=== PATIENT | male | born 1995 | race Caucasian/White ===

== ENCOUNTER → 2021-02-17 13:39 | Outpatient (CLI) | payer MEDICAID, SELFPAY ==
[2017-09-17 16:44] VITALS: BMI 43.5
[2021-02-17 14:45] LABS: Hematocrit 37.9 % (40-54); Hemoglobin 11.8 g/dL (13.0-16.5); Mean Corp Hgb Conc 31.1 g/dL (32-36); Mean Corpuscular Hgb 27.2 pg (27.0-32.0); Mean Corpuscular Volume 87.3 fL (80-94); Mean Platelet Vol. 9.6 fl (6.2-12.0); Platelet Count 383 K/mm3 (150-450); RBC Distribution Width CV 14.6 % (11.6-14.6); RBC Distribution Width SD 46.5 fl (35.1-43.9); Red Blood Count 4.34 M/mm3 (4.6-6.2); White Blood Count 11.3 K/mm3 (4.4-11.0)
[2021-02-17 15:13] LABS: ALB/GLOB Ratio 0.9 RATIO (0.9-2.4); AST(SGOT) 26 U/L (15-37); Alanine Aminotransfer ALT/SGPT 50 U/L (16-61); Albumin, Serum 3.4 g/dL (3.2-5.0); Alkaline Phosphatase 145 U/L (45-117); Anion Gap 8 (5-15); BUN 16 mg/dL (7-18); Calcium,Total 8.7 mg/dL (8.5-10.1); Chloride 104 mmol/L (98-107); Cholesterol 229 mg/dL (200); EST Glomerular Filtration Rate 95 mL/min (>60); Est Glom Filt Rate - Afr Amer 115 mL/min (>60); Globulin 3.9 g/dL (2.2-4.2); Glucose 112 mg/dL (74-106); High Density Lipoprotein 37 mg/dL; Potassium 3.9 mmol/L (3.5-5.1); Protein, Total 7.3 g/dL (6.4-8.2); Sodium Level 140 mmol/L (136-145); Triglycerides 317 mg/dL; Very Low Density Lipoprotein 63 mg/dL (5-40)
[2021-02-27 14:46] LABS: Everolimus 4.6 ng/mL (3.0-8.0); Trileptal-Oxcarbazepine 20 ug/mL (10-35)
== END ==
DX: Q85.1 Tuberous sclerosis (principal)
CPT/HCPCS: 36415; 80053; 80061; 80169; 82542; 85027

== ENCOUNTER 2022-02-17 08:41 | Emergency (ER) | payer MEDICAID, SELFPAY ==
[2022-02-17 08:43] VITALS: BP 155/92; PULSE 82; RESP 16; TEMP 36.8; O2SAT 100; BMI 42.8
--- NOTE | 2022-02-17 09:17 | EDS_ITS ---
HPI History of Present Illness Chief Complaint: Edema Informant: parent Narrative Narrative: 26-year-old male brought in by his parents with a chief complaint of lower extremity swelling. This process has been years in the making. Patient has tuberosclerosis with burning renal involvement and is followed by [facility]'s. Recently parents were informed that they need to be transferred to adult care. They are having difficulty with follow-up not having an appointment until April. They have follow-up with local PCP in a few weeks. He states that his legs have become progressively more swollen. They are looking for some way to relieve the swelling of his legs. He states that they went to urgent care but could not be seen. He did not know what to do anymore so he decided to come to emergency. They would like to see about getting a sedated MRI of his abdomen while he is here. He is not on any diuretic. They have not tried compressive wraps or socks. [facility] Medical History Angiomyolipoma of kidney Epilepsy HTN (hypertension) Neurocognitive disorder Seizure Tuberous sclerosis Home Medications Everolimus 10 mg PO DAILY 09/17/17 [History Last Taken Unknown] cholecalciferol (vitamin D3) 50 mcg (2,000 unit) capsule (Vitamin D3) 50 mcg PO DAILY 02/17/22 [History Last Taken Unknown] furosemide 40 mg tablet (Lasix) 40 mg PO DAILY #20 tabs 02/17/22 [Rx Last Taken Unknown] losartan 50 mg tablet 50 mg PO DAILY 02/17/22 [History Last Taken Unknown] oxcarbazepine 300 mg tablet 450 mg PO DAILY 02/17/22 [History Last Taken Unknown] oxcarbazepine 300 mg tablet 600 mg PO QHS 02/17/22 [History Last Taken Unknown] valproic acid (as sodium salt) 250 mg/5 mL oral solution 9 ml PO TID 02/17/22 [History Last Taken Unknown] ziprasidone HCl 20 mg capsule (Geodon) 20 mg PO BID 02/17/22 [History Last Taken Unknown] Allergy/AdvReac Type Severity Reaction Status Date / Time No Known Allergies Allergy Verified 02/17/22 08:42 Social History (Updated 02/17/22 @ 09:[address] Harlan Bernard DO) Smoking Status: Never smoker substance use type: does not use ROS ROS ED Constitutional Constitutional ED: Denies chills or weight loss Eyes Eyes: Denies change in vision or diplopia ENT ENT ED: Denies ear pain, rhinorrhea or sore throat Cardiovascular Cardiovascular: Denies chest pain, orthopnea, palpitations or racing heartbeat Respiratory/Chest Respiratory/Chest: Denies cough, dyspnea or orthopnea Gastrointestinal Gastrointestinal: Denies abdominal pain, diarrhea, nausea or vomiting Genitourinary Genitourinary ED: Denies dysuria, hematuria or urinary frequency Musculoskeletal Musculoskeletal: Reports other Details: Bilateral leg swelling ; Denies arthralgias or myalgias Integumentary Denies abscess or rash Neurologic Neurologic: Denies headache(s) or weakness Psychiatric Psychiatric: Denies anxiety, depression, suicidal ideation or suicidal thoughts Endocrine Endocrinology: Denies polydipsia, polyphagia or polyuria Allergic/Immunologic Allergic/Immunologic ED: Denies mouth swelling, tongue swelling or urticaria EXAM Physical Exam Const Vital Signs: 02/17/22 08:43 Temperature 98.3 F Temperature Source Temporal Pulse Rate 82 Respiratory Rate 16 Blood Pressure 155/92 H Blood Pressure Mean 113 Pulse Ox 100 Oxygen Delivery Method Room Air Positive well nourished and well developed General Appearance ED: well developed HEENT Reports normocephalic, head/scalp atraumatic and moist mucous membranes Eyes PERRL and EOMs intact bilaterally Neck no lymphadenopathy, supple and no JVD Resp normal respiratory effort and clear to auscultation bilaterally Cardio regular rate, regular rhythm and no murmurs GI normal to inspection, nondistended, normoactive bowel sounds and non-tender Palpation: soft Back/Spine no CVA tenderness and normal ROM Extremity normal to inspection Extremity Narrative: Bilateral lower extremity swelling. No palpable cords. Calf is nontender. Neuro Neuro Narrative: Patient is nonverbal Sensorium / Orientation: alert Motor Exam: strength 5/5 throughout Psych mental status grossly normal Mood & Affect: Negative for depressed or tearful Skin no rashes or lesions noted and no wounds MDM MDM MDM Narrative Medical decision making narrative: Patient has a normal creatinine. I will start him on Lasix. Family advised he would need to have follow-up BMP to check his potassium. I encouraged him to make an appointment with her doctor even if its in a couple weeks so that he can have follow-up with people that do know him. Family is comfortable with this plan. We talked about monitoring salt intake elevating the legs possibly compressive stockings/wraps. Lab Data Attestation: I reviewed the patient's lab results. Labs: Laboratory Results - last 24 hr 02/17/22 09:26 Sodium 141 Potassium 4.0 Chloride 105 Carbon Dioxide 27.0 Anion Gap 9 BUN 16 Creatinine 0.78 Estim Creat Clear Calc 141.00 Est GFR (MDRD) Af Amer 152 Est GFR (MDRD) Non-Af 126 BUN/Creatinine Ratio 20.5 H Glucose 118 H Calcium 8.7 Discharge Plan Triage Chief Complaint: Edema ED Provider: Harlan Bernard Dx/Rx/DC Orders Clinical Impression: Lymphedema Instructions: ED Lymphedema Prescriptions: New furosemide [Lasix] 40 mg tablet 40 mg PO DAILY Qty: 20 0RF No Action Everolimus 10 mg PO DAILY losartan 50 mg tablet 50 mg PO DAILY Label Comments: TAKE 1 TABLET BY MOUTH 2CTIMES A DAY2 oxcarbazepine 300 mg tablet 450 mg PO DAILY Label Comments: TAKE 1 AND 1/2 TABLETS BYCMOUTH IN THE MORNING AND 2 TABLETS IN THE EVENING oxcarbazepine 300 mg tablet 600 mg PO QHS Label Comments: TAKE 1 AND 1/2 TABLETS BYCMOUTH IN THE MORNING AND 2 TABLETS IN THE EVENING ziprasidone HCl [Geodon] 20 mg Capsule 20 mg PO BID Rx Instructions: give with food (meal/snack) valproic acid (as sodium salt) 250 mg/5 mL solution 9 ml PO TID Label Comments: TAKE 9ML BY MOUTH 3 TIMESCA DAY cholecalciferol (vitamin D3) [Vitamin D3] 50 mcg (2,000 unit) Capsule 50 mcg PO DAILY Primary Care Provider: Ge Pittman Referrals: Ge Pittman MD [Primary Care Provider] - As soon as possible (YOU WILL NEED TO HAVE YOUR POTASSIUM RECHECKED) Disposition Disposition: Home, Self Care
[2022-02-17 09:47] LABS: Anion Gap 9 (5-15); BUN 16 mg/dL (7-18); BUN/Creat Ratio 20.5 RATIO (10-20); Calcium,Total 8.7 mg/dL (8.5-10.1); Chloride 105 mmol/L (98-107); Creatinine, Serum 0.78 mg/dL (0.70-1.30); EST Glomerular Filtration Rate 126 mL/min (>60); Est Glom Filt Rate - Afr Amer 152 mL/min (>60); Glucose 118 mg/dL (74-106); Sodium Level 141 mmol/L (136-145)
[2022-02-17 10:13] VITALS: BP 139/81; RESP 16
== END 2022-02-17 10:14 | disposition home or self-care (01) ==
PROVIDERS: Emergency Provider Emergency Medicine; PCP Family Medicine; Visit Provider Emergency Medicine
DX: I89.0 Lymphedema, not elsewhere classified (principal); G40.909 Epilepsy, unspecified, not intractable, without status epilepticus; I10 Essential (primary) hypertension; Z79.899 Other long term (current) drug therapy
CPT/HCPCS: 80048; 99282; A4216

== ENCOUNTER → 2022-03-23 | Outpatient (CLI) | payer MEDICAID, SELFPAY ==
--- NOTE | 2022-03-23 13:46 | VDLE_ITS ---
Reason For Study: swelling RIGHT GSV is normal. CFV is compressible, spontaneous, phasic, competent and demonstrates normal augmentation. FV is compressible, spontaneous, phasic, competent and demonstrates normal augmentation. POP V is compressible, spontaneous, phasic, competent and demonstrates normal augmentation. T/P Trunk is compressible. PTV is compressible. RT PerV is compressible. Procedure This is a venous duplex using B-mode, color flow and spectral Doppler. Exam performed in department. The exam was abbreviated due to the COVID 19 protocol. The exam was diagnostic. A preliminary report was called and/or faxed to Dr. Sweet. VL/Venous Duplex US, Unilateral Interpretation Summary Deep veins of the right lower extremity are patent and compressible segmentally . There is no evidence of right lower extremity deep vein thrombosis. Valvular competence tere ears intact within the proximal deep venous system on the right . The right great saphenous vein a ppears patent and compressible segmentally. Ordering Physician: Abdirahman Sweet Referring Physician: Abdirahman Sweet Performed By: Alejandro Rosario RVT
[2022-03-23 15:29] LABS: Anion Gap 9 (5-15); BUN 21 mg/dL (7-18); BUN/Creat Ratio 23.8 RATIO (10-20); Calcium,Total 9.1 mg/dL (8.5-10.1); Chloride 105 mmol/L (98-107); Cholesterol 203 mg/dL (200); Creatinine, Serum 0.88 mg/dL (0.70-1.30); EST Glomerular Filtration Rate 109 mL/min (>60); Est Glom Filt Rate - Afr Amer 132 mL/min (>60); Glucose 143 mg/dL (74-106); High Density Lipoprotein 36 mg/dL; Potassium 3.7 mmol/L (3.5-5.1); Sodium Level 140 mmol/L (136-145); Triglycerides 235 mg/dL; Very Low Density Lipoprotein 47 mg/dL (5-40)
[2022-03-23 15:45] LABS: Hemoglobin A1c 5.5 % (3.8-5.6)
== END | disposition home or self-care (01) ==
PROVIDERS: PCP Family Medicine; Referring Provider Family Medicine; Visit Provider Family Medicine
DX: R22.41 Localized swelling, mass and lump, right lower limb (principal); Z79.899 Other long term (current) drug therapy
CPT/HCPCS: 36415; 80048; 80061; 83036; 93971

== ENCOUNTER → 2024-04-18 | Outpatient (CLI) | payer MEDICAID, SELFPAY ==
[2024-04-18 12:43] LABS: Erythrocyte Sedimentation Rate 17 mm/hr (0-20)
[2024-04-18 12:50] LABS: Absolute Lymphocyte Count 2.09 X10^3/uL (0.83-4.51); Absolute Neutrophil Count 6.1 X10^3/uL (2.0-7.7); Basophil# 0.03 X10^3/uL; Basophil% 0.3 % (0-1); Eosinophil# 0.03 X10^3/uL; Eosinophils% 0.3 % (0-5); Hematocrit 35.5 % (40-54); Lymphocyte # 2.09 X10^3/ul (0.83-4.51); Lymphocyte % 23.6 % (19-41); Mean Corpuscular Hgb 27.6 pg (27.0-32.0); Mean Platelet Vol. 11.1 fl (6.2-12.0); Monocyte% 6.8 % (0-10); NRBC Flagged by Analyzer 0 % (0-5); Neutrophil # 6.09 X10^3/uL (2.7-7.7); Neutrophil % 68.7 % (47-70); Platelet Count 244 K/mm3 (150-450); RBC Distribution Width CV 14.4 % (11.6-14.6); RBC Distribution Width SD 46.2 fl (35.1-43.9); Red Blood Count 3.99 M/mm3 (4.6-6.2); White Blood Count 8.9 K/mm3 (4.4-11.0)
[2024-04-18 13:21] LABS: ALB/GLOB Ratio 0.8 RATIO (0.9-2.4); AST(SGOT) 21 U/L (15-37); Alanine Aminotransfer ALT/SGPT 35 U/L (16-61); Albumin, Serum 3.2 g/dL (3.2-5.0); Alkaline Phosphatase 132 U/L (45-117); Anion Gap 7 (5-15); BUN 16 mg/dL (7-18); BUN/Creat Ratio 18.9 RATIO (10-20); Calcium,Total 9.4 mg/dL (8.5-10.1); Chloride 108 mmol/L (98-107); Creatinine, Serum 0.85 mg/dL (0.70-1.30); EST Glomerular Filtration Rate 112 mL/min (>60); Est Glom Filt Rate - Afr Amer 136 mL/min (>60); Glucose 103 mg/dL (74-106); Potassium 4.2 mmol/L (3.5-5.1); Protein, Total 7.2 g/dL (6.4-8.2); Sodium Level 139 mmol/L (136-145); T4 Free Direct 0.78 ng/dL (0.76-1.46)
[2024-04-18 14:08] LABS: Hemoglobin A1c 5.2 % (3.8-5.6)
== END | disposition home or self-care (01) ==
PROVIDERS: PCP Family Medicine; Referring Provider Family Medicine; Visit Provider Family Medicine
DX: I10 Essential (primary) hypertension (principal); R63.4 Abnormal weight loss
CPT/HCPCS: 36415; 80053; 83036; 84439; 84443; 85025; 85652

== ENCOUNTER → 2024-06-21 | Outpatient (CLI) | payer MEDICAID, SELFPAY ==
--- OUTSIDE RECORDS SUMMARY | 2024-06-21 13:40 | XMS RPT_ITS | CCD ---
Author Organization [facility] Care Team Providers Care Sales Support Representative Name Role Phone oTne ARRINGTON, Clifton Unavailable [phone] Irma Pittman MD Primary Care Provider GLADYS BUSH Referring UnavailRAVINDER Whiting Primary Care Unavailable TALMAGEESHA Referring Unavailable TALESHA US Attending Unavailable TALESHA US Admitting Unavailable RAVINDER LANGFORD Primary Care Unavailable Ravinder Langford Primary Care Provider Unavail able GLADYS BUSH Referring UnavailRAVINDER Whiting Primary Care Unavailable Tone ARRINGTON, Clifton Unavailable [phone] Irma Pittman MD Primary Care Provider [phone] IRMA PITTMAN Referring Unavailable IRMA PITTMAN Primary Care Unavailable TAMMI MCQUEEN Attending Unavailable IRMA PITTMAN Primary Care Unavailable TAMMI MCQUEEN Attending Unavailable IRMA PITTMAN Referring Unavailable IRMA PITTMAN Primary Care Unavailable TAMMI MCQUEEN Referring Unavailable TAMMI MCQUEEN Attending Unavailable Unavailable Primary Care Provider UnavailDARREL Aguilar Attending Unavailable PROVIDER, UNKNOWN Admitting Unavailable DARREL BLACKMON Referring Unavailable PROVIDER, UNKNOWN Admitting Unavailable HARITHA GREGG Attending Unavailable Medications Current Medications Medication Drug Class(es) Dates Sig (Normalized) Sig (Original) acetaminophen 500 mg oral tablet (4 sources) Start: 11-02-2019 take 2 tablets by mouth every six hours as needed for pain acetaminophen (TYLENOL) 500 MG tablet Take 2 Tablets by mouth every 6 hours as needed for Pain or Fever. 60 Tablet 3 11/02/2019 Active cholecalciferol 0.05 mg oral tablet (6 sources) Vitamin D Start: 07-07-2023 take 1 tablet by mouth once daily cholecalciferol (VITAMIN D3) 50 mcg (2000 units) tablet Take 1 Tablet (2,000 Units) by mouth daily 30 Tablet 11 07/07/2023 Active Start: 01-07-2022 take 1 tablet by chula th once daily cholecalciferol (VITAMIN D3) 50 mcg (2000 units) tablet Take 1 Tablet (2,000 Units) by mouth daily 30 Tablet 11 01/07/2022 Active Start: 06-11-2019 Vitamin D3 (CH OLECALCIFEROL) 50 MCG (2000 UT) TABS tablet Take 2,000 Units by mouth. 06/11/2019 Active everolimus 5 mg tablet for oral suspension (6 sources) Kinase Inhibitor, mTOR Inhibitor Immunosuppressant Start: 07-07-2023 take 2 tablets by mouth once daily Everolimus (AFINITOR DISPERZ) 5 MG TBSO Take 2 Tablets (10 mg) by mouth daily 60 Tablet 11 07/07/2023 Active Start: 01-07-2022 take 2 tablets by mo uth once daily Everolimus (AFINITOR DISPERZ) 5 MG TBSO Take 2 Tablets (10 mg) by mouth daily 60 Tablet 01/07/2022 Active Start: 06-07-2019 Everolimus 5 M G TBSO Take 10 mg by mouth. 06/07/2019 Active ibuprofen 600 mg oral tablet (4 sources) Nonsteroidal Anti-inflammatory Drug Start: 11-02-2019 take 1 tablet by mouth every six hours as needed for pain ibuprofen (MOTRIN) 600 MG tablet Take 1 Tablet by mouth every 6 hours as needed for Pain. 30 Tablet 3 11/02/2019 Active losartan potassium 50 mg oral tablet (6 sources) Angiotensin 2 Receptor Angela Start: 10-19-2019 take 1 tablet by mouth twice daily losartan (COZAAR) 50 MG tablet Take 1 Tablet by mouth 2 times daily. 10/19/2019 Active OXcarbazepine 300 mg oral tablet (6 sources) Anti-epileptic Agent Start: 07-07-2023 OXcarbazepine (TRILEPTAL) 300 MG tablet 1.5 tabs am and 2 tabs pm 110 Tablet 5 07/07/2023 Active Start: 01-07-2022 OXcarbazepine (TRILEPTAL) 300 MG tablet 1.5 tabs am and 2 tabs pm 110 Tablet 5 01/07/2022 Active Start: 06-07-2019 oxcarbazepine (TRILEPTAL) 300 MG/5ML oral suspension Take 7 ml po in the morning and 10 ml at night x 30 days 06/07/2019 Active risperiDONE 1 mg oral tablet (2 sources) Atypical Antipsychotic Start: 03-24-2024 take 2 tablets by mouth twice daily risperiDONE (RISPERDAL) 1 MG tablet Take 2 mg by mouth 2 times daily. 03/24/2024 Active valproic acid 50 mg/ml oral solution (6 sources) Mood Stabilizer, Anti-epileptic Agent Start: 06-21-2019 take 9 mL by mouth three times daily valproic acid (DEPAKENE) 250 MG/5ML SOLN oral solution Take 9 ml po tid 06/21/2019 Active ziprasidone 20 mg oral capsule (6 sources) Atypical Antipsychotic take 1 capsule by mouth twice daily ziprasidone (GEODON) 20 MG capsule Take 20 mg by mouth 2 times daily. Active Problems Active Problems Problem Classification Problem Date Documented Da te Episodic/Chronic Attention-deficit, conduct, and disruptive behavior disorders (1 source) Other symptoms and signs involving appearance and behavior; Translations: [Other symptoms and signs involving appearance and behavior] Onset: 04-28-2024 Episodic Epilepsy; convulsions (7 sources) Epilepsy; Translations: [Epilepsy, unspecified, not intractable, without status epilepticus] Onset: 03-25-2016 03-25-2016 Chronic Essential hypertension (9 sources) Hypertensive disorder; Translations: [Essential (primary) hypertension] Onset: 03-19-2009 06-08-2014 Chronic Nutritional deficiencies (6 sources) Vitamin D deficiency; Translations: [Vitamin D deficiency, unspecified] Onset: 12-31-2011 06-08-2014 Chronic Other and unspecified benign neoplasm (2 sources) Benign lipomatous neoplasm of kidney; 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] Onset: 08-27-2022 Episodic Other congenital anomalies (8 sources) Tuberous sclerosis syndrome; 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 Other diseases of veins and lymphatics (4 sources) Lymphedema; Translations: [Lymphedema, not elsewhere classified] Onset: 04-28-2024 04-28-2024 Chronic Other nutritional; endocrine; and metabolic disorders (2 sources) Body mass index 30+ - obesity; Translations: [Body mass index (BMI) 33.0-33.9, adult] 06-09-2024 Chronic Other nutritional; endocrine; and metabolic disorders (1 source) Body mass index (BMI) 33.0-33.9, adult; Translations: [Body mass index (BMI) 33.0-33.9, adult] Onset: 06-09-2024 Chronic Past or Other Problems Problem Classification Problem Date Documented Date Episodic/Chronic Attention-deficit, conduct, and disruptive behavior disorders (7 sources) Aggressive behavior; Translations: [Other symptoms and signs involving appearance and behavior] Onset: 03-25-2016 03-25-2016 Episodic Disorders of teeth and jaw (9 sources) Tooth eruption disorder; Translations: [Disturbances in tooth eruption] Onset: 09-12-2019 09-12-2019 Episodic Epilepsy; convulsions (6 sources) Seizure; Translations: [Unspecified convulsions] Onset: 04-01-1994 06-08-2014 Episodic Other and unspecified benign neoplasm (9 sources) Angiomyolipoma of kidney; 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] Onset: 06-23-2012 10-09-2021 Episodic Other and unspecified benign neoplasm (6 sources) Rhabdomyoma; 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 other soft tissue, unspecified] Onset: 06-23-2012 10-09-2021 Episodic Other injuries and conditions due to external causes (2 sources) Systemic inflammatory response syndrome; Translations: [Systemic inflammatory response syndrome (SIRS) of non-infectious origin without acute organ dysfunction] Onset: 06-09-2014 Resolved: 06-09-2014 10-09-2021 Episodic Residual codes; unclassified (7 sources) Neurocognitive disorder; Translations: [Unspecified symptoms and signs involving cognitive functions and awareness] Onset: 03-09-2018 03-09-2018 Episodic Residual codes; unclassified (1 source) Unspecified symptoms and signs involving cognitive functions and awareness; Translations: [Unspecified symptoms and signs involving cognitive functions and awareness] Onset: 09-06-2019 Episodic Shock (2 sources) Shock; Translations: [Shock, unspecified] Onset: 06-09-2014 Resolved: 06-09-2014 10-09-2021 Episodic Results Test Name Value Interpretation Reference Range Facility BASIC METABOLIC PANELon 05-30 Anion gap [Moles/Vol] 15 mmol/L Normal 10-20 [facility] Comment on above: Performed By: #### C H8 #### [facility] [address] [place], [place], Calcium [Mass/Vol] 8.9 mg/dL Normal 8.6-10.3 The [facility] Comment on above: Performed By: #### C H8 #### [facility] [address] [place], [place], Chloride [Moles/Vol] 106 mmol/L Normal 98-107 The [facility] Comment on above: Performed By: #### C H8 #### [facility] [address] [place], [place], CO2 [Moles/Vol] 26 mmol/L Normal 21-31 The [facility] Comment on above: Performed By: #### C H8 #### [facility] [address] [place], [place], Creatinine [Mass/Vol] 0.75 mg/dL Normal 0.70-1.30 The [facility] Comment on above: Performed By: #### C H8 #### [facility] [address] [place], [place], ESTIMATED GFR (CKD-EPI) 125 mL/min/1.73sqm Normal >=60 The [facility] Comment on above: Result Comment: 2020 CKD EPI Equation using Creatinine without Race Comment: Estimated glomerular filtration rate (eGFR) is calculated without a race coefficient. Values should be interpreted in the context of the patient's full clinical presentation. Reference: 1. Jimenez C, Javad M, Danyel WALKER, et al.. A Unifying Approach for GFR Estimation: Recommendations of the NKF-ASN Task Force on Reassessing the Inclusion of Race in Diagnosing Kidney Disease. [place] Journal of Kidney Diseases 2021;79(2):268-88.e1. 2. N Engl J Med 1 Vol. 385 Issue 19 Pages 5894-3435 Performed By: #### C H8 #### [facility] [address] [place], [place], Glucose [Mass/Vol] 90 mg/dL Normal 74-109 The [facility] Comment on above: Performed By: #### C H8 #### [facility] [address] [place] [address], Potassium [Moles/Vol] 4.5 mmol/L Normal 3.5-5.0 The [facility] Comment on above: Performed By: #### C H8 #### [facility] [address] [place], [place], Sodium [Moles/Vol] 142 mmol/L Normal 136-145 The [facility] Comment on above: Performed By: #### C H8 #### [facility] [address] [place], [place], Urea nitrogen [Mass/Vol] 18 mg/dL Normal 7-25 [facility] Comment on above: Performed By: #### C H8 #### [facility] [address] [place], [place], Basic metabolic 2000 panelon 06-09-2024 Anion gap [Moles/Vol] 15 mmol/L 10 - 20 [facility] Calcium [Mass/Vol] 8.9 mg/dL 8.6 - 10. 3 mg/dL [facility] Chloride [Moles/Vol] 106 mmol/L 98 - 107 mmol/L [facility] CO2 [Moles/Vol] 26 mmol/L 21 - 31 mmol/L [facility] Creatinine [Mass/Vol] 0.75 mg/dL 0.70 - 1.30 mg/dL [facility] GFR/1.73 sq M.predicted CKD-EPI (S/P/Bld) [Vol rate/Area] 125 - PINF [facility] Comment on above: 2020 CKD EPI Equatio n using Creatinine without Race Comment: Estimated glomerular filtration rate (eGFR) is calculated without a race coefficient. Values should be interpreted in the context of the patient's full clinical presentation. Reference: 1. Jimenez C, Javad M, Danyel DC, et al.. A Unifying Approach for GFR Estimation: Recommendations of the NKF-ASN Task Force on Reassessing the Inclusion of Race in Diagnosing Kidney Disease. [place] Journal of Kidney Diseases 2021;79(2):268-88.e1. 2. N Engl J Med 2020 Vol. 385 Issue 19 Pages 4487-0234 Glucose [Mass/Vol] 90 mg/dL 74 - 109 mg/dL [facility] Interpretation and review of laboratory results Normal [facility] Potassium [Moles/Vol] 4.5 mmol/L 3.5 - 5.0 mmol/L [facility] Sodium [Moles/Vol] 142 mmol/L 136 - 145 mmol/L [facility] Urea nitrogen [Mass/Vol] 18 mg/dL 7 - 25 mg/dL [facility] CBC panel Auto (Bld)on 06-09 Erythrocyte distribution width (RBC) [Ratio] 15.7 % High 11.5 - 14.5 % [facility] Hematocrit (Bld) [Volume fraction] 32.6 % Low 41.0 - 53.0 % [facility] Hemoglobin (Bld) [Mass/Vol] 10.7 g/dL Low 13.9 - 16.3 g/dL [facility] Interpretation and review of laboratory results Abnormal [facility] MCH (RBC) [Entitic mass] 27.9 pg 26.0 - 34.0 pg [facility] MCHC (RBC) [Mass/Vol] 32.9 g/dL 32.0 - 35.9 g/dL [facility] MCV (RBC) [Entitic vol] 85 fL 80 - 100 fL [facility] Platelet mean volume (Bld) [Entitic vol] 7.8 fL 7.5 - 11.2 fL [facility] Platelets (Bld) [#/Vol] 307 10*3/uL 150 - 400 K/uL [facility] RBC (Bld) [#/Vol] 3.84 10*6/uL Low [facility] WBC (Bld) [#/Vol] 9.2 10*3/uL 4.5 - 11.5 K/uL [facility] COMPLETE BLOOD COUNTon 06-09 Erythrocyte distribution width (RBC) [Ratio] 15.7 % High 11.5-14.5 The [facility] Comment on above: Performed By: #### C BC #### [facility] [address] [place] [address], Hematocrit (Bld) [Volume fraction] 32.6 % Low 41.0-53.0 The [facility] Comment on above: Performed By: #### C BC #### [facility] [address] [place], [place], Hemoglobin (Bld) [Mass/Vol] 10.7 g/dL Low 13.9-16.3 [facility] Comment on above: Performed By: #### C BC #### [facility] [address] [place], [place], MCH (RBC) [Entitic mass] 27.9 pg Normal 26.0-34.0 [facility] Comment on above: Performed By: #### C BC #### [facility] [address] [place], [place], MCHC (RBC) [Mass/Vol] 32.9 g/dL Normal 32.0-35.9 [facility] Comment on above: Performed By: #### C BC #### [facility] [address] [place], [place], MCV (RBC) [Entitic vol] 85 fL Normal 80-100 The [facility] Comment on above: Performed By: #### C BC #### [facility] [address] [place], [place], Platelet mean volume (Bld) [Entitic vol] 7.8 fL Normal 7.5-11.2 The [facility] Comment on above: Performed By: #### C BC #### [facility] [address] [place], [place], Platelets (Bld) [#/Vol] 307 10*3/uL Normal 150-400 The [facility] Comment on above: Performed By: #### C BC #### [facility] [address] [place], [place], RBC (Bld) [#/Vol] 3.84 10*6/uL Low 4.50-5.[address] [facility] Comment on above: Performed By: #### C BC #### [facility] [address] [place], [place], WBC (Bld) [#/Vol] 9.2 10*3/uL Normal 4.5-11.5 [facility] Comment on above: Performed By: #### C BC #### [facility] [address] [place], [place], Patient Instructionson 06-09 Print Traffic Manager Authentication Interface Message Text On the morning of your surgery, please take only the following medications, with a small sip of water: risperiDONE (RISPERDAL) 1 MG tablet acetaminophen (TYLENOL) 500 MG tablet as needed oxcarbazepine (TRILEPTAL) 300 MG/5ML oral suspension valproic acid (DEPAKENE) 250 MG/5ML SOLN oral solution Vitamin D3 (CHOLECALCIFEROL) 50 MCG (2000 UT) TABS tablet Everolimus 5 MG TBSO Hold losartan (COZAAR) in the morning of you surgery Do not take any Aspirin products 7 days before surgery. Do not take Ibuprofen, Aleve, Advil, Motrin or any other NSAIDS (celebrex, meloxicam, naproxen, diclofenac) 3 days before surgery. May take over the counter Acetaminophen (Tylenol) as needed for pain. Please hold all Vitamin E, [place] 3, fish oil and herbal supplements for 1 week prior to surgery. You will receive a call the day before surgery between 10 am and 3 pm notifying you what time to arrive for surgery. Eating and drinking before surgery: Adult Patients: No food or drink for 8 hours prior to surgery check in time. Plain water is allowed up to 2 hours prior to your surgery arrival time. A sip of water with approved morning medications is acceptable. Enhanced Recovery After Surgery (ERAS), bariatric, and endoscopy/colonoscopy patients should follow their surgeon's/procedurali st's instructions for clear fluids prior to surgery. Post-op Nausea and Vomiting: A risk of anesthesia is nausea and/or vomiting (PONV). Certain patients are at higher risk than others. Talk to your anesthesiologist about the plan to minimize this risk. In general, it is best to start with only ice chips or small sips of water, then progress to clear, non-alcoholic fluids. You do not have to eat if you do not feel like it; fluids are the most important in the first 24 hours after surgery. If you start to eat, try bananas, applesauce, plain toast, saltine crackers, or broth; avoid fried or fatty foods. Make sure to eat something about 15 minutes before taking any pain medications. Seek medical attention for any prolonged PONV and signs of dehydration. Patients whose assigned sex at was female, and are starting puberty or beyond, will be urine tested for per hospital policy. Please use this CHECKLIST to prepare for your surgery/procedure: ? Assume that any lab or testing done during your Pre-admission testing appointment is within normal limits unless otherwise contacted. ? Expect a call from [facility] one business day prior to surgery for surgery arrival time and location. ? Please plan to restart your medications the day after surgery unless otherwise explicitly instructed. ? Please contact your surgeon's/procedurali st's office for any surgical or recovery types of questions. ? CANCELLING YOUR SURGERY/PROCEDURE: If you get a cold, are not feeling well, or become , please call your surgeon's office as soon as possible. ? Refer to your Preparing for Your Surgery/Procedure booklet or [email or web address] if you have questions. Contact the Pre-Admission Testing department at [phone] or your surgeon's office with any questions that are not answered. ON THE DAY OF SURGERY: ? DO bring your ID, insurance card, medication list, and a small amount of macario for filling prescriptions and any medical co-pays. ? Do NOT wear any jewelry, (including rings, earrings, or mouth, tongue, or body piercings). Metal jewelry could cause constriction, amputation, or hou. Loose or bulky things in your mouth can be unsafe and result in breathing problems. ? DO bring glasses if you wear contacts and other assistance items such as oxygen, inhaler, cane, walker, etc. ? Do NOT bring valuables, credit cards, or large amounts of macario. ? Do NOT wear lotion or strong-smelling fragrance (perfume, cologne, cream or lotion). ? ARRANGE FOR A RIDE: If you are scheduled to go home the same day of surgery, a responsible adult MUST drive or accompany you home in a car, cab, shared ride service, or [employer]. You will not be allowed to drive yourself home or travel home alone. Your surgery may be cancelled if you do not have a ride. A responsible adult must stay with you after surgery. Please call [employer] if you need transportation assistance or have concerns about going home [phone]. ? SLEEP APNEA PATIENTS: Bring your sleep apnea machine and mask. ? PLEASE BE ON TIME. A late arrival may result in the cancellation/ delay of your surgery. Thank you for choosing [facility]; it is our pleasure to care for you Normal [facility] Progress Noteson 05-15-2024 Print Traffic Manager Authentication Interface Message Text Parent/guardian/patie nt was contacted for PAT AND IV Sedation scheduled -- confirmed information with patient, also informed mom importance of going to PAT appointment -- if missed, IV Sedation will be cancelled, and you will be placed back on wait list 06/29/2024----- Wednesday, May 15, 2024 at 2:05:14 PM ----- ----- Provider: [facility] -- Clinic: [place] ----- Normal [facility] Progress Noteson 04-28-2024 Print Traffic Manager Authentication Interface Message Text ----- Sunday, April 28, 2024 at 11:17:47 AM ----- ----- Provider: [id number] Blackmon DDS -- Clinic: [place] [address] ----- OR EVALUATION Patient presents for evaluation to determine best course of treatment due to history of Hypertension, seizure, neurocognitive disorder, epileptic seizure, Rhabdomyoma, aggression. Patient is accompanied by mother and father for today's appointment. Patient did not cooperate for any examination. Clinical findings: Unable to assess It is best suited that this patient have full comprehensive examination, radiographs and treatment completed in the OR setting or in-office IV sedation setting. Explained that the patient will be added to our OR and IV sedation waiting list, and the legal guardian will be contacted once a time slot becomes available. Legal Guardians: Mother: Carole Madison Father: Ian Madison NOTE: Patient will be placed on both the in-office IV sedation and Adult OR wait lists. Next Visit: Adult OR or in-office IV sedation Normal [facility] Everolimus, Bloodon 07-09-20 Everolimus, Blood 7.0 ng/mL Normal 3-8 ng/mL [facility] Comment on above: Order Comment: Relea se to patient->Automatic 94406&Blood Result Comment: ADDITIONAL INFORMATION Target steady-state trough concentrations vary depending on the type of transplant, concomitant immunosuppression, clinical/institutional protocols, and time post-transplant. Results should be interpreted in conjunction with this clinical information and any physical signs/symptoms of rejection/toxicity. Testing performed by Liquid Chromatography-Tandem Mass Spectrometry (LC-MS/MS). This test was developed and its performance characteristics determined by [facility] in a manner consistent with CLIA requirements. This test has not been cleared or approved by the U.S. Food and Drug Administration. Test Performed by: [place] [address] Foreign Law Consultant: Jerardo Marsh M.D. Ph.D.; CLIA# [id number] Performed By: #### E VERB #### [place] [id number] Oxcarbazepine/Trileptalon Oxcarbazepine/Trile ptal 21 mcg/mL Normal 10 - 35 [facility] Comment on above: Order Comment: Relea se to patient->Automatic 67111&Blood Result Comment: ADDITIONAL INFORMATION This test was developed and its performance characteristics determined by [facility] in a manner consistent with CLIA requirements. This test has not been cleared or approved by the U.S. Food and Drug Administration. Test Performed by: [place] [address] Foreign Law Consultant: Jerardo Marsh M.D. Ph.D.; CLIA# [id number] Performed By: #### O XCAR #### [address] [address] Comp Metabolic Panelon 07-07 Bili,Total <0.2 Normal [facility] Comment on above: Order Comment: Relea se to patient->Automatic 78232&Blood Performed By: #### C MP #### [address] [address] Albumin [Mass/Vol] 4.1 g/dL Normal 3.5-5.0 [facility] Comment on above: Order Comment: Relea se to patient->Automatic 34072&Blood Performed By: #### C MP #### [place] [address] [place] [address] ALP [Catalytic activity/Vol] 117 U/L Normal 40-129 [facility] Comment on above: Order Comment: Relea se to patient->Automatic 63021&Blood Performed By: #### C MP #### [place] [address] [place] [address] ALT [Catalytic activity/Vol] 50 U/L High 0-46 [facility] Comment on above: Order Comment: Relea se to patient->Automatic 62221&Blood Performed By: #### C MP #### [address] [address] AST [Catalytic activity/Vol] 39 U/L High 0-37 [facility] Comment on above: Order Comment: Relea se to patient->Automatic 37747&Blood Performed By: #### C MP #### [address] [address] Calcium [Mass/Vol] 9.2 mg/dL Normal 7.6-11.0 [facility] Comment on above: Order Comment: Relea se to patient->Automatic 92185&Blood Performed By: #### C MP #### [address] [address] CO2 [Moles/Vol] 23.9 mmol/L Normal 22.0-29.0 [facility] Comment on above: Order Comment: Relea se to patient->Automatic 88429&Blood Performed By: #### C MP #### [address] [address] Creatinine [Mass/Vol] 0.81 mg/dL Normal 0.70-1.20 [facility] Comment on above: Order Comment: Relea se to patient->Automatic 74560&Blood Performed By: #### C MP #### [address] [address] Glucose [Mass/Vol] 98 mg/dL Normal 70-99 [facility] [facility] Comment on above: Order Comment: Relea se to patient->Automatic [id number]&Blood Result Comment: Crit eria for Diagnosis of Diabetes: Fasting Specimen (no caloric intake for at least 8 hours): <100 mg/dL Normal 100-125 mg/dL Increased risk for Diabetes >125 mg/dL Diagnostic for Diabetes Random Glucose (any time of day without regard to last meal): > or = 200 mg/dL plus Classic Symptoms of Diabetes Performed By: #### C MP #### [address] [address] Protein [Mass/Vol] 7.2 g/dL Normal 5.9-8.4 [facility] Comment on above: Order Comment: Relea se to patient->Automatic 07481&Blood Performed By: #### C MP #### [address] [address] Urea nitrogen [Mass/Vol] 15 mg/dL Normal 4-19 [facility] Comment on above: Order Comment: Relea se to patient->Automatic [id number]&Blood Performed By: #### C MP #### [address] [address] Chloride [Moles/Vol] 105 mmol/L Normal 96-108 [facility] Comment on above: Order Comment: Relea se to patient->Automatic 30774&Blood Performed By: #### C MP #### [address] [address] Potassium [Moles/Vol] 4.0 mmol/L Normal 3.3-5.1 [facility] Comment on above: Order Comment: Relea se to patient->Automatic 11642&Blood Performed By: #### C MP #### [facility] [place] [address] [place] [address] Sodium [Moles/Vol] 141 mmol/L Normal 133-145 [facility] Comment on above: Order Comment: Relea se to patient->Automatic 46794&Blood Performed By: #### C MP #### [address] [address] Complete Blood Counton 07-07 Differential Complete Automated Normal [facility] Comment on above: Performed By: #### C BC #### [address] [address] Basophils/100 WBC (Bld) 0.60 % Normal 0.00-1.00 [facility] Comment on above: Performed By: #### C BC #### [address] [address] Eosinophils/100 WBC (Bld) 0.40 % Normal 0.00-3.00 [facility] Comment on above: Performed By: #### C BC #### [address] [address] Erythrocyte distribution width (RBC) [Ratio] 14.4 % Normal 0.0-14.4 [facility] Comment on above: Performed By: #### C BC #### [address] [address] Hematocrit (Bld) [Volume fraction] 37.7 % Low 41.0-50.0 [facility] Comment on above: Performed By: #### C BC #### [address] [address] Hemoglobin (Bld) [Mass/Vol] 11.9 g/dL Low 13.5-16.5 [facility] Comment on above: Performed By: #### C BC #### [address] [place] [id number] Immature granulocytes/100 WBC (Bld) 0.90 % Normal [facility] Comment on above: Result Comment: Sofiya ture Granulocyte Percent includes promyelocytes, myelocytes, and metamyelocytes. IG% > 1.0 indicates a left shift is present. With automated differentials, bands are included in the neutrophil count and not in the Immature Granulocyte Percent. Performed By: #### C BC #### [address] [address] Lymphocytes/100 WBC (Bld) 25.6 % Normal 24.0-44.0 [facility] Comment on above: Performed By: #### C BC #### [address] [address] MCH (RBC) [Entitic mass] 27.2 pg Normal 26.0-34.0 [facility] Comment on above: Performed By: #### C BC #### [address] [address] MCHC 31.6 % Normal 31.0-37.0 [facility] Comment on above: Performed By: #### C BC #### [address] [address] MCV (RBC) [Entitic vol] 86.3 fL Normal 80.0-100.0 [facility] Comment on above: Performed By: #### C BC #### [address] [address] Monocytes/100 WBC (Bld) 7.20 % High 3.00-6.00 [facility] Comment on above: Performed By: #### C BC #### [address] [id number] Neutrophils (Bld) [#/Vol] 7.4 10*3/uL Normal 1.8-7.4 [facility] Comment on above: Performed By: #### C BC #### [address] [address] Neutrophils/100 WBC (Bld) 65.3 % Normal 35.0-66.0 [facility] Comment on above: Performed By: #### C BC #### [address] [address] Nucleated RBC/100 WBC (Bld) [Ratio] 0.0 % Normal -1.0-0.0 [facility] Comment on above: Performed By: #### C BC #### [address] [address] Platelet mean volume (Bld) [Entitic vol] 9.7 fL Normal [facility] Comment on above: Result Comment: MPV is platelet range and age dependent Performed By: #### C BC #### [address] [address] Platelets (Bld) [#/Vol] 329 10*3/uL Normal 150-450 [facility] Comment on above: Performed By: #### C BC #### [address] [address] RBC 4.37 10E12/L Low 4.50-5.50 [facility] Comment on above: Performed By: #### C BC #### [address] [address] WBC (Bld) [#/Vol] 11.4 10*3/uL High 4.5-11.0 [facility] Comment on above: Performed By: #### C BC #### [address] [address] Complete Blood Count with Di fferentialon 07-07-2023 Basophils/100 WBC (Bld) 0.60 % 0.00 - 1.00 % [facility] Differential Complete Automated [facility] Eosinophils/100 WBC (Bld) 0.40 % 0.00 - 3.00 % [facility] Erythrocyte distribution width (RBC) [Ratio] 14.4 % 0.0 - 14.4 % [facility] Hematocrit (Bld) [Volume fraction] 37.7 % Low 41.0 - 50.0 % [facility] Hemoglobin (Bld) [Mass/Vol] 11.9 g/dL Low 13.5 - 16.5 g/dl [facility] Immature granulocytes/100 WBC (Bld) 0.90 % [facility] Comment on above: Immature Granulocyte Percent includes promyelocytes, myelocytes, and metamyelocytes. IG% > 1.0 indicates a left shift is present. With automated differentials, bands are included in the neutrophil count and not in the Immature Granulocyte Percent. Interpretation and review of laboratory results Abnormal [facility] Lymphocytes/100 WBC (Bld) 25.6 % 24.0 - 44.0 % [facility] MCH (RBC) [Entitic mass] 27.2 pg 26.0 - 34.0 pg [facility] MCHC 31.6 % 31.0 - 37.0 % [facility] MCV (RBC) [Entitic vol] 86.3 fL 80.0 - 100.0 fl [facility] Monocytes/100 WBC (Bld) 7.20 % High 3.00 - 6.00 % [facility] Neutrophils (Bld) [#/Vol] 7.4 10*3/uL [facility] Neutrophils/100 WBC (Bld) 65.3 % 35.0 - 66.0 % [facility] Nucleated RBC/100 WBC (Bld) [Ratio] 0.0 % -1.0 - 0.0 % [facility] Platelet mean volume (Bld) [Entitic vol] 9.7 fL [facility] Comment on above: MPV is platelet range and age dependent Platelets (Bld) [#/Vol] 329 10*3/uL [facility] RBC (Bld) [#/Vol] 4.37 10*6/uL Low [facility] WBC (Bld) [#/Vol] 11.4 10*3/uL [facility] Comprehensive metabolic pane josué 07-07-2023 Albumin [Mass/Vol] 4.1 g/dL 3.5 - 5.0 g/dL [facility] ALP [Catalytic activity/Vol] 117 U/L 40 - 129 U/L [facility] ALT [Catalytic activity/Vol] 50 U/L High 0 - 46 U/L [facility] AST [Catalytic activity/Vol] 39 U/L High 0 - 37 U/L [facility] Bilirubin [Mass/Vol] mg/dL mg/dL [facility] Calcium [Mass/Vol] 9.2 mg/dL 7.6 - 11. 0 mg/dL [facility] Chloride [Moles/Vol] 105 mmol/L 96 - 108 mmol/L [facility] CO2 [Moles/Vol] 23.9 mmol/L 22.0 - 29.0 mmol/L [facility] Creatinine [Mass/Vol] 0.81 mg/dL 0.70 - 1.20 mg/dL [facility] Glucose [Mass/Vol] 98 mg/dL 70 - 99 mg/dL [facility] Comment on above: Criteria for Diagnos is of Diabetes: Fasting Specimen (no caloric intake for at least 8 hours): <100 mg/dL Normal 100-125 mg/dL Increased risk for Diabetes >125 mg/dL Diagnostic for Diabetes Random Glucose (any time of day without regard to last meal): > or = 200 mg/dL plus Classic Symptoms of Diabetes Interpretation and review of laboratory results Abnormal [facility] Potassium [Moles/Vol] 4.0 mmol/L 3.3 - 5.1 mmol/L [facility] Protein [Mass/Vol] 7.2 g/dL 5.9 - 8.4 g/dL [facility] Sodium [Moles/Vol] 141 mmol/L 133 - 145 mmol/L [facility] Urea nitrogen [Mass/Vol] 15 mg/dL 4 - 19 mg/dL [facility] Release to patient->Automatic [facility] Progress Noteon 07-07-2023 Print Traffic Manager Authentication Interface Message 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 (20 ) No seizures in 6 yrs Previous attempt to wean oxcarb failed MRI jul 2022 Abdomen . Innumerable renal masses are present bilaterally with macroscopic fat. 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 No suspicious renal mass is identified to suggest associated malignancy. 2. Fatty infiltration of the liver parenchyma and associated mild hepatomegaly. Brain Radiographic features of tuberous sclerosis is noted, including cortical/subcortical tubers, subependymal hematomas, radial bands. Please refer to the body of the report. Comparison to old MR brain would be helpful to evaluate for stability. 01/06/2023 No seizures 5 years everolimus 10mg (4.6 01/2021) Depakote 9ml tid Oxcarb 450 and 600. (20 ) Little language Not toilet trained Mostly feeds self 07/08/2022 No seizures everolimus 10mg (4.6 01/2021) Depakote 9ml tid Oxcarb 450 and 600. (20 ) 01/07/2022 TSC and seizures No seizures in 2 yrs Just at home The history is provided by the patient and a parent. 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 Epilepsy Syndrome: infancy (1-12 months) and less specific age relationship History of Non-Pharmacologic Therapies: none Since Last Visit: Overall Seizure Frequency Since Last Visit: stable Seizures Disrupt Routines in the Past 2 Weeks: never Treatment Side Effects Since Last Visit: none Status Epilepticus Since Last Visit: no Seizure Cluster Since Last Visit: no Emergency Department Visit Since Last Visit: no Unscheduled Hospitalization Since Last Visit: no Adherence: Patient Completion of Adherence Barrier Checklist: no Quality Measures: Screened for Behavioral Health Comorbidities: yes, with general questions Folate Supplementation Discussed: no SUDEP Discussed: no Transition to Adult Epilepsy Care Discussed: not applicable MRI Abdomen 1. No significant change in the innumerable bilateral angiomyolipomas of the kidneys. 2. 1 cm sludge ball or gallstone in the gallbladder. Brain 02/2019 Multiple subependymal nodules, some of which contain internal calcification, are stable. The largest nodule measures approximately 1.9 x 1.3 cm along the trigone of the right lateral ventricle. Remaining nodules measure up to 1.0 cm or less in maximum dimension, and are unchanged. The nodules show varying degrees of heterogeneous enhancement. No enlarging lesion is seen in the steinberg of Paez region. The ventricles are stable in size and configuration without hydrocephalus Current Outpatient Medications Medication Sig Dispense Refill cholecalciferol (VITAMIN D3) 50 mcg (2000 units) tablet Take 1 Tablet (2,000 Units) by mouth daily 30 Tablet 11 Everolimus (AFINITOR DISPERZ) 5 MG TBSO Take 2 Tablets (10 mg) by mouth daily 60 Tablet 11 losartan (COZAAR) 50 MG TABS tablet Take 1 Tablet (50 mg) by mouth 2 times daily Take 1 Tab (50 mg) by mouth 2 times daily 60 Tablet 5 OXcarbazepine (TRILEPTAL) 300 MG tablet 1.5 tabs am and 2 tabs pm 110 Tablet 5 valproate (DEPAKENE) 250 MG/5ML syrup Take 9 ml po tid 850 mL 5 ziprasidone (GEODON) 20 MG capsule Take 1 Capsule (20 mg) by mouth 2 times daily No current facility-administered medications for this visit. Interim History 12/11/2020 Some behavior issues Better since can go outside Last seizure 18 mo ago. On geodon 3 tabs psychiatrist Currently on Everolimus 10mg, Depakote 9ml tid, Trileptal 7ml am and 10ml Vit d Lorstatin 50mg bid No abdominal complaints No other issues No issues today Stable unchanged over last few years. MRI 02/2019 FINDINGS: Multiple subependymal nodules, some of which contain internal calcification, are stable. The largest nodule measures approximately 1.9 x 1.3 cm along the trigone of the right lateral ventricle. Remaining nodules measure up to 1.0 cm or less in maximum dimension, and are unchanged. The nodules show varying degrees of heterogeneous enhancement. No enlarging lesion is seen in the steinberg of Paez region. The ventricles are stable in size and configuration without hydrocephalus. Multiple T2/FLAIR hyperintense cortical tubers in the white matter of the cerebrum and cerebellum are unchanged. Some of these lesions in the cerebellum contain internal calcification. No new lesion. Diffuse dural enhancement is similar to the prior exam. Diffuse calvarial thickening is (more content not included)... 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 male. His chief complaint(s) include: Tuberous Sclerosis Seizure History 01/06/2023 No seizures 5 years everolimus 10mg (.01/2021) Depakote 9ml tid Oxcarb 450 and 600. (20 ) Little language Not toilet trained Mostly feeds self 07/08/2022 No seizures everolimus 10mg (4.6 01/2021) Depakote 9ml tid Oxcarb 450 and 600. (20 ) 01/07/2022 TSC and seizures No seizures in 2 yrs Just at home The history is provided by the patient and a parent. 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 Epilepsy Syndrome: infancy (1-12 months) and less specific age relationship History of Non-Pharmacologic Therapies: none Since Last Visit: Overall Seizure Frequency Since Last Visit: stable Seizures Disrupt Routines in the Past 2 Weeks: never Treatment Side Effects Since Last Visit: none Status Epilepticus Since Last Visit: no Seizure Cluster Since Last Visit: no Emergency Department Visit Since Last Visit: no Unscheduled Hospitalization Since Last Visit: no Adherence: Patient Completion of Adherence Barrier Checklist: no Quality Measures: Screened for Behavioral Health Comorbidities: yes, with general questions Folate Supplementation Discussed: no SUDEP Discussed: no Transition to Adult Epilepsy Care Discussed: not applicable MRI Abdomen 1. No significant change in the innumerable bilateral angiomyolipomas of the kidneys. 2. 1 cm sludge ball or gallstone in the gallbladder. Brain 02/2019 Multiple subependymal nodules, some of which contain internal calcification, are stable. The largest nodule measures approximately 1.9 x 1.3 cm along the trigone of the right lateral ventricle. Remaining nodules measure up to 1.0 cm or less in maximum dimension, and are unchanged. The nodules show varying degrees of heterogeneous enhancement. No enlarging lesion is seen in the steinberg of Paez region. The ventricles are stable in size and configuration without hydrocephalus. Current Outpatient Medications Medication Sig Dispense Refill Everolimus (AFINITOR DISPERZ) 5 MG TBSO Take 2 Tablets (10 mg) by mouth daily 60 Tablet 11 OXcarbazepine (TRILEPTAL) 300 MG tablet 1.5 tabs am and 2 tabs pm 110 Tablet 5 valproate (DEPAKENE) 250 MG/5ML syrup Take 9 ml po tid 850 mL 5 cholecalciferol (VITAMIN D3) 50 mcg (2000 units) tablet Take 1 Tablet (2,000 Units) by mouth daily 30 Tablet 11 losartan (COZAAR) 50 MG TABS tablet Take 1 Tablet (50 mg) by mouth 2 times daily Take 1 Tab (50 mg) by mouth 2 times daily 60 Tablet 5 ziprasidone (GEODON) 20 MG capsule Take 1 Capsule (20 mg) by mouth 2 times daily No current facility-administered medications for this visit. Interim History 12/11/2020 Some behavior issues Better since can go outside Last seizure 18 mo ago. On geodon 3 tabs psychiatrist Currently on Everolimus 10mg, Depakote 9ml tid, Trileptal 7ml am and 10ml Vit d Lorstatin 50mg bid No abdominal complaints No other issues No issues today Stable unchanged over last few years. MRI 02/2019 FINDINGS: Multiple subependymal nodules, some of which contain internal calcification, are stable. The largest nodule measures approximately 1.9 x 1.3 cm along the trigone of the right lateral ventricle. Remaining nodules measure up to 1.0 cm or less in maximum dimension, and are unchanged. The nodules show varying degrees of heterogeneous enhancement. No enlarging lesion is seen in the steinberg of Paez region. The ventricles are stable in size and configuration without hydrocephalus. Multiple T2/FLAIR hyperintense cortical tubers in the white matter of the cerebrum and cerebellum are unchanged. Some of these lesions in the cerebellum contain internal calcification. No new lesion. Diffuse dural enhancement is similar to the prior exam. Diffuse calvarial thickening is unchanged. The orbits are unremarkable. Small mucous retention cyst noted in the left maxillary sinus. The remaining paranasal sinuses and mastoid air cells are clear. KIDNEYS AND URETERS: Again seen are innumerable bilateral angiomyolipomas of the kidneys. They are similar in size and number to the last exam. No new lesion is seen. Interim history 06/12/2020 Currently on Everolimus 10mg, Depakote, Trileptal MRI kidneys 2017 Numerous angiomyolipomas are seen throughout both kidneys. The lesions show partial or septal enhancement with contrast and varying degrees of fat content. Right kidney: The dominant lesio (more content not included)... Normal [facility] CBC panel Auto (Bld)on 10-23 Erythrocyte distribution width (RBC) [Ratio] 14.8 % Normal 11.5-15.0 [facility] Comment on above: Order Comment: Jonny robledo Type: BLOOD SPECIMEN Ordering Facility: [facility] Address: [address] [place] [address] Performed By: #### 5 8410-2 #### [facility] CLIA [id number] [address] [place] [address] [place] Hematocrit (Bld) [Volume fraction] 35.0 % Low 39.0-51.0 [facility] Comment on above: Order Comment: Jonny robledo Type: BLOOD SPECIMEN Ordering Facility: [facility] Address: [address] [place] [address] Performed By: #### 5 8410-2 #### [facility] CLIA [id number] [address] [place] [address] [place] Hemoglobin (Bld) [Mass/Vol] 11.4 g/dL Low 13.0-17.0 [facility] Comment on above: Order Comment: Speci men Type: BLOOD SPECIMEN Ordering Facility: [facility] Address: [address] [place] [address] Performed By: #### 5 8410-2 #### [facility] CLIA [id number] [address] [place] [address] [place] MCH (RBC) [Entitic mass] 27.6 pg Normal 26.0-34.0 [facility] Comment on above: Order Comment: Speci men Type: BLOOD SPECIMEN Ordering Facility: [facility] Address: [facility] [place] [address] Performed By: #### 5 8410-2 #### [facility] CLIA [id number] [address] [place] [address] [place] MCHC (RBC) [Mass/Vol] 32.6 g/dL Normal 30.5-36.0 [facility] Comment on above: Order Comment: Speci men Type: BLOOD SPECIMEN Ordering Facility: [facility] Address: [address] [place] [address] Performed By: #### 5 8410-2 #### [facility] CLIA [id number] [address] [place] [address] [place] MCV (RBC) [Entitic vol] 84.7 fL Normal 80.0-100.0 [facility] Comment on above: Order Comment: Speci men Type: BLOOD SPECIMEN Ordering Facility: [facility] Address: [address] [place] [address] Performed By: #### 5 8410-2 #### [facility] CLIA [id number] [address] [place] [address] [place] Nucleated RBC (Bld) [#/Vol] 10*3/uL Normal <0.01 [facility] Comment on above: Order Comment: Speci men Type: BLOOD SPECIMEN Ordering Facility: [facility] Address: [address] [place] [address] Performed By: #### 5 8410-2 #### [facility] CLIA [id number] [address] [place] [address] [place] Platelet mean volume (Bld) [Entitic vol] 9.4 fL Normal 9.0-12.7 [facility] Comment on above: Order Comment: Speci men Type: BLOOD SPECIMEN Ordering Facility: [facility] Address: [address] [place] [address] Performed By: #### 5 8410-2 #### [facility] CLIA [id number] [address] [place] [address] [place] Platelets (Bld) [#/Vol] 300 10*3/uL Normal 150-400 [facility] Comment on above: Order Comment: Speci men Type: BLOOD SPECIMEN Ordering Facility: [facility] Address: [address] [place] [address] Performed By: #### 5 8410-2 #### [facility] CLIA [id number] [address] [place] [address] [place] RBC (Bld) [#/Vol] 4.13 10*6/uL Low 4.20-6.00 [facility] Comment on above: Order Comment: Speci men Type: BLOOD SPECIMEN Ordering Facility: [facility] Address: [address] [place] [address] Performed By: #### 5 8410-2 #### [facility] CLIA [id number] [address] [place] [address] [place] WBC (Bld) [#/Vol] 9.71 10*3/uL Normal 3.70-11.00 [facility] Comment on above: Order Comment: Speci men Type: BLOOD SPECIMEN [facility] Address: [address] [place] [address] Performed By: #### 5 8410-2 #### [facility] CLIA [id number] [address] [place] [address] [place] Prot Ur-mCncon 10-23-2022 Protein (U) [Mass/Vol] 173 mg/dL High 0-20 [facility] Comment on above: Order Comment: Speci men Type: URINE SPECIMEN Ordering Facility: [facility] Address: [address] [place] [address] Performed By: #### 2 888-6 #### [facility] CLIA [id number] [address] [place] [address] [place] Renal function 2000 panelon 10-23-2022 Albumin [Mass/Vol] 3.7 g/dL Low 3.9-4.9 [facility] Comment on above: Order Comment: Speci men Type: BLOOD SPECIMEN Ordering Facility: [facility] Address: [address] [place] [address] Performed By: #### 2 4362-6 #### [facility] CLIA [id number] [address] [place] [address] [place] Anion gap [Moles/Vol] 10 mmol/L Normal 9-18 [facility] Comment on above: Order Comment: Speci men Type: BLOOD SPECIMEN Ordering Facility: [facility] Address: [address] [place] [address] Performed By: #### 2 4362-6 #### [facility] CLIA [id number] [address] [place] [address] [place] Calcium [Mass/Vol] 8.9 mg/dL Normal 8.5-10.2 [facility] Comment on above: Order Comment: Speci men Type: BLOOD SPECIMEN Ordering Facility: [facility] Address: [address] [place] [address] Performed By: #### 2 4362-6 #### [facility] CLIA [id number] [address] [place] [address] [place] Chloride [Moles/Vol] 105 mmol/L Normal 97-105 [facility] Comment on above: Order Comment: Speci men Type: BLOOD SPECIMEN Ordering Facility: [facility] Address: [address] [place] [address] Performed By: #### 2 4362-6 #### [facility] [id number] [address] [place] [address] [place] CO2 [Moles/Vol] 25 mmol/L Normal 22-30 [facility] Comment on above: Order Comment: Speci men Type: BLOOD SPECIMEN Ordering Facility: [facility] Address: [address] [place] [address] Performed By: #### 2 4362-6 #### [facility] [id number] [address] [place] [address] [place] Creatinine [Mass/Vol] 0.72 mg/dL Low 0.73-1.22 [facility] Comment on above: Order Comment: Speci men Type: BLOOD SPECIMEN Ordering Facility: [facility] Address: [address] [place] [address] Performed By: #### 2 4362-6 #### [facility] [id number] [address] [place] [address] [place] ESTIMATED GLOMERULAR FILTRATION RATE 127 mL/min/1.73m??? Normal >=60 [facility] Comment on above: Order Comment: Speci men Type: BLOOD SPECIMEN Ordering Facility: [facility] Address: [address] [place] [address] Result Comment: Ruth mated Glomerular Filtration Rate (eGFR) is calculated using the 2020 CKD-EPI creatinine equation. This equation utilizes serum creatinine, sex, and age as parameters. The creatinine assay has traceable calibration to isotope dilution-mass spectrometry. Refer to KDIGO guidelines for clinical interpretation. In patients with unstable renal function, e.g. those with acute kidney injury, the eGFR may not accurately reflect actual GFR. Performed By: #### 2 4362-6 #### [facility] CLIA [id number] [address] [place] [address] [place] Glucose [Mass/Vol] 139 mg/dL High 74-99 [facility] Comment on above: Order Comment: Jonny robledo Type: BLOOD SPECIMEN Ordering Facility: [facility] Address: [address] [place] [address] Result Comment: The [place] Diabetes Association (ADA) provides guidance for cutoff values for fasting glucose and random glucose. The ADA defines fasting as no caloric intake for at least 8 hours. Fasting plasma glucose results between 100 to 125 mg/dL indicate increased risk for diabetes (prediabetes). Fasting plasma glucose results greater than or equal to 126 mg/dL meet the criteria for diagnosis of diabetes. In the absence of unequivocal hyperglycemia, results should be confirmed by repeat testing. In a patient with classic symptoms of hyperglycemia or hyperglycemic crisis, random plasma glucose results greater than or equal to 200 mg/dL meet the criteria for diagnosis of diabetes. Reference: Standards of Medical Care in Diabetes 2016, [place] [employer] Association. Diabetes Care. 2016.39(Suppl 1). Performed By: #### 2 4362-6 #### [facility] [id number] [address] [place] [address] [place] Phosphate [Mass/Vol] 2.4 mg/dL Low 2.7-4.8 [facility] Comment on above: Order Comment: Rafaeli men Type: BLOOD SPECIMEN Ordering Facility: [facility] Address: [address] [place] [address] Performed By: #### 2 4362-6 #### [facility] [id number] [address] [place] [address] [place] Potassium [Moles/Vol] 3.8 mmol/L Normal 3.7-5.1 [facility] Comment on above: Order Comment: Jonny robledo Type: BLOOD SPECIMEN Ordering Facility: [facility] Address: [address] [place] [address] Performed By: #### 2 4362-6 #### [facility] CLIA [id number] [address] [place] [address] [place] Sodium [Moles/Vol] 140 mmol/L Normal 136-144 [facility] Comment on above: Order Comment: Speci men Type: BLOOD SPECIMEN Ordering Facility: [facility] Address: [address] [place] [address] Performed By: #### 2 4362-6 #### [facility] CLIA [id number] [address] [place] [address] [place] Urea nitrogen [Mass/Vol] 16 mg/dL Normal 9-24 [facility] Comment on above: Order Comment: Speci men Type: BLOOD SPECIMEN Ordering Facility: [facility] Address: [address] [place] [address] Performed By: #### 2 4362-6 #### [facility] [id number] [address] [place] [address] [place] ANES POSTPROC EVALon 022 ANES POSTPROC EVAL HNO ID: [id number] Author: Lauren Bravo MD Service: ? 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 Social History Tobacco Use Smoking status: Never Smokeless tobacco: Never Substance Use Topics Alcohol use: Not Currently Drug use: Not Currently MEDICAL HISTORY: No past medical history on file. SURGICAL HISTORY: Past Surgical History: Procedure Laterality Date EXTRACTION, TOOTH Bilateral 11/02/2019 Procedure: EXTRACTION, TOOTH #1,16,17,30,31,32; Surgeon: Dennis Salmon DDS; [facility]; Service: Oral Past Medical History and Review of Systems Pulmonary - negative ROS Dental ROS (+) teeth problems missing Endo - negative ROS Neuro/Psych (+) seizures (5 year ago) Comment: Epilepsy Non verbal Cardiovascular (+) hypertension Comment: Denies CP, SOB, NOGUEIRA, syncope or palpitations GI/Hepatic/Renal Comment: Angiomyolipoma of kidney Heme/Other - negative ROS Other ROS: Tuberous sclerosis Caries PREVIOUS ANESTHETIC COMPLICATIONS: no history of difficult intubation , adverse effects of anesthetic agents, or family history of anesthesia-related problems, nor malignant hyperthermia and hx of previous anesthesia CURRENT MEDICATION LIST: Current Outpatient Medications Medication Sig Dispense Refill risperiDONE (RISPERDAL) 1 MG tablet Take 2 mg by mouth 2 times daily. acetaminophen (TYLENOL) 500 MG tablet Take 2 Tablets by mouth every 6 hours as needed for Pain or Fever. 60 Tablet 3 ibuprofen (MOTRIN) 600 MG tablet Take 1 Tablet by mouth every 6 hours as needed for Pain. 30 Tablet 3 losartan (COZAAR) 50 MG tablet Take 1 Tablet by mouth 2 times daily. ziprasidone (GEODON) 20 MG capsule Take 20 mg by mouth 2 times daily. (Patient not taking: Reported on 06/09/2024) oxcarbazepine (TRILEPTAL) 300 MG/5ML oral suspension Take 7 ml po in the morning and 10 ml at night x 30 days valproic acid (DEPAKENE) 250 MG/5ML SOLN oral solution Take 9 ml po tid Vitamin D3 (CHOLECALCIFEROL) 50 MCG (1999 UT) TABS tablet Take 2,000 Units by mouth. Everolimus 5 MG TBSO Take 10 mg by mouth. No current facility-administered medications for this visit. HEIGHT: 5' 9 WEIGHT: Weight was 120.2 kg on 10/19/2019 BMI: 33.6 VITAL SIGNS: BP 130/67 Pulse 66 Temp 97.2 F (36.2 C) (Temporal) Resp 16 Ht 1.753 m (5' 9 ) Wt 103.2 kg (227 lb 8 oz) SpO2 100% BMI 33.60 kg/m PAIN ASSESSMENT: Severity: 0 Location: N/A AIRWAY EXAM: Mallampati score: 3 TMD: Adequate Neck Extension/ Flexion: Adequate Mouth Opening: Adequate Dentition: Missing teeth Micrognathia/Overbite: No FUNCTIONAL CAPACITY: 4-10 mets , Patient able to walk 1-2 blocks PHYSICAL EXAM: Eyes: Deferred ENT: Carotids normal pulse without bruits Pulmonary: Chest clear to auscultation bilaterally Cardiovascular: RRR with S1S2 Abdomen: Deferred Extremities: Deferred Neurologic: deferred Psychiatric: non verbal Skin: No gross or obvious abnormalities on visible skin Assessment and Plan: 1) Pre-Admission Evaluation 2) Pre-Op Diagnosis Codes: * Caries [K02.9]Proceed to surgery 3) HTN-Stable with current medication regimen. Patient advised to hold losartan (COZAAR) on the morning of surgery d/t possible intra-operative hypotension. Patient advised to exercise regularly, eat a healthy diet and maintain a healthy lifestyle. LABS, TESTS, CONSULTS ORDERED: Orders & Meds Signed During This Encounter Complete Blood Count Basic Metabolic Panel risperiDONE (RISPERDAL) 1 MG tablet LABORATORY DATA: CBC (last 3 years, up to 8 values) 06/09/2024 9:03 AM WBC 9.2 RBC 3.84 Hgb 10.7 Hct 32.6 MCV 85 RDW 15.7 Plt 307 BMP (last 3 years, up to 8 values) 06/09/2024 9:03 AM Na 142 K 4.5 Cl 106 CO2 26 Gap 15 Glu 90 BUN 18 Cr 0.75 Ca 8.9 eGFR 125 TESTS REVIEWED: I personally reviewed and interpreting and findings were: CXRay: No Chest x-ray found EK Normal sinus rhythm Normal ECG ECHO: 2018 SUMMARY: 1. Normal echocardiogram. 2. Therre was no left ventricular hypertrophy, normal left ventricular function. 3. Left ventricle: The cavity size is normal. Wall thickness is normal. Normal left ventricular function. No evidence of arch obstruction. H/O tuberous Sclerosis No intracardiac mass seen. Stress test date: Last StressTest: none found going back to 12/24/2011 Neurology 07/07/2023 PLAN: 1. Seizures: Continue Depakene 9 ml three times a day. Refill given. Continue Trileptal 7ml am and 10 ml pm. Refilled. Clonazepam 2 mg DT mg po prn seizure lasting longer than 5 minutes 2. continue psychiatry and psychology as available at this time 3. Vitamin D 4000 I units po daily. Script sent. MRI abdomen and kidneys At [facility] with sedation 1 yr 5 Continue Nephrology follow up. With adult kidney doctor at [facility] 6. Agree with mTOR inhibitors, which would help with renal , cerebral , seizures and skin lesions. Patient is medically optimized for surgery. This note will be forwarded to the referring provider. Patient should follow up with referring provider. Patient has been directed to discuss specific recovery questions with his/her surgeon/proceduralist. Attestation: I have spent 20 total minutes. Visit activities: - preparing to see the patient (e.g., review of tests) - obtaining and/or reviewing separately obtained history - performing a medically appropriate examination and/or evaluation - counseling and educating the patiecounseling and educating the patient/family/caregivernt/fami ly/caregiver - counseling and educating the patient/family/caregiver - ordering medications, tests, or procedures - documenting clinical information in the electronic or other health record Interviewer signature: DANIELLE Maguire 12:00 PM 06/09/2024 documented in this encounter [facility] 06-09-2024 History of Present illness Narrative Images from the original note were not included. Pre-Admission Testing Consultation Gal Madison, [id number] 28 year old Male 06/12/2024 Consult placed to [facility] by Dr. Hernandez due to significant PMH of HTN, Seizures PAT Triage Risk Score Total Score: 2 2 Patient is on more than 2 antihypertension medications. Gal Madison is scheduled for (Bilateral) DENTAL RESTORATIONS on 06/29 . Pre-Op diagnosis of: Pre-Op Diagnosis Codes: * Caries [K02.9] HISTORY OF PRESENT ILLNESS: Patient needs dental work under anesthesia Present with family: Brother, mother and father during appointment, primary caregivers Patient is here for pre-admission optimization and education prior to surgery. RECENT ILLNESS: Serious illness or hospitalization within the last six months. No STOP BANG: STOP-BANG Row Name 06/09/24 0908 History of sleep apnea? No Snoring No Tired/Fatigued No Observed Apnea No Pressure: Hypertension Yes BMI greater than 35 0 Age greater than 50 0 Neck circ greater than 40cm (15.75 ) No Gender male? 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 Social History Tobacco Use Smoking status: Never Smokeless tobacco: Never Substance Use Topics Alcohol use: Not Currently Drug use: Not Currently MEDICAL HISTORY: No past medical history on file. SURGICAL HISTORY: Past Surgical History: Procedure Laterality Date EXTRACTION, TOOTH Bilateral 11/02/2019 Procedure: EXTRACTION, TOOTH #1,16,17,30,31,32; Surgeon: Dennis Salmon DDS; Location: [facility]; Service: Oral Past Medical History and Review of Systems Pulmonary - negative ROS Dental ROS (+) teeth problems missing Endo - negative ROS Neuro/Psych (+) seizures (5 year ago) Comment: Epilepsy Non verbal Cardiovascular (+) hypertension Comment: Denies CP, SOB, NOGUEIRA, syncope or palpitations GI/Hepatic/Renal Comment: Angiomyolipoma of kidney Heme/Other - negative ROS Other ROS: Tuberous sclerosis Caries PREVIOUS ANESTHETIC COMPLICATIONS: no history of difficult intubation , adverse effects of anesthetic agents, or family history of anesthesia-related problems, nor malignant hyperthermia and hx of previous anesthesia CURRENT MEDICATION LIST: Current Outpatient Medications Medication Sig Dispense Refill risperiDONE (RISPERDAL) 1 MG tablet Take 2 mg by mouth 2 times daily. acetaminophen (TYLENOL) 500 MG tablet Take 2 Tablets by mouth every 6 hours as needed for Pain or Fever. 60 Tablet 3 ibuprofen (MOTRIN) 600 MG tablet Take 1 Tablet by mouth every 6 hours as needed for Pain. 30 Tablet 3 losartan (COZAAR) 50 MG tablet Take 1 Tablet by mouth 2 times daily. ziprasidone (GEODON) 20 MG capsule Take 20 mg by mouth 2 times daily. (Patient not taking: Reported on 06/09/2024) oxcarbazepine (TRILEPTAL) 300 MG/5ML oral suspension Take 7 ml po in the morning and 10 ml at night x 30 days valproic acid (DEPAKENE) 250 MG/5ML SOLN oral solution Take 9 ml po tid Vitamin D3 (CHOLECALCIFEROL) 50 MCG (1999 UT) TABS tablet Take 2,000 Units by mouth. Everolimus 5 MG TBSO Take 10 mg by mouth. No current facility-administered medications for this visit. HEIGHT: 5' 9 WEIGHT: Weight was 120.2 kg on 10/19/2019 BMI: 33.6 VITAL SIGNS: BP 130/67 Pulse 66 Temp 97.2 F (36.2 C) (Temporal) Resp 16 Ht 1.753 m (5' 9 ) Wt 103.2 kg (227 lb 8 oz) SpO2 100% BMI 33.60 kg/m PAIN ASSESSMENT: Severity: 0 Location: N/A AIRWAY EXAM: Mallampati score: 3 TMD: Adequate Neck Extension/ Flexion: Adequate Mouth Opening: Adequate Dentition: Missing teeth Micrognathia/Overbite: No FUNCTIONAL CAPACITY: 4-10 mets , Patient able to walk 1-2 blocks PHYSICAL EXAM: Eyes: Deferred ENT: Carotids normal pulse without bruits Pulmonary: Chest clear to auscultation bilaterally Cardiovascular: RRR with S1S2 Abdomen: Deferred Extremities: Deferred Neurologic: deferred Psychiatric: non verbal Skin: No gross or obvious abnormalities on visible skin Assessment and Plan: 1) Pre-Admission Evaluation 2) Pre-Op Diagnosis Codes: * Caries [K02.9]Proceed to surgery 3) HTN-Stable with current medication regimen. Patient advised to hold losartan (COZAAR) on the morning of surgery d/t possible intra-operative hypotension. Patient advised to exercise regularly, eat a healthy diet and maintain a healthy lifestyle. LABS, TESTS, CONSULTS ORDERED: Orders & Meds Signed During This Encounter Complete Blood Count Basic Metabolic Panel risperiDONE (RISPERDAL) 1 MG tablet LABORATORY DATA: CBC (last 3 years, up to 8 values) 06/09/2024 9:03 AM WBC 9.2 RBC 3.84 Hgb 10.7 Hct 32.6 MCV 85 RDW 15.7 Plt 307 BMP (last 3 years, up to 8 values) 06/09/2024 9:03 AM Na 142 K 4.5 Cl 106 CO2 26 Gap 15 Glu 90 BUN 18 Cr 0.75 Ca 8.9 eGFR 125 TESTS REVIEWED: I personally reviewed and interpreting and findings were: CXRay: No Chest x-ray found EK Normal sinus rhythm Normal ECG ECHO: 2017 SUMMARY: 1. Normal echocardiogram. 2. Therre was no left ventricular hypertrophy, normal left ventricular function. 3. Left ventricle: The cavity size is normal. Wall thickness is normal. Normal left ventricular function. No evidence of arch obstruction. H/O tuberous Sclerosis No intracardiac mass seen. Stress test date: Last StressTest: none found going back to 12/24/2011 Neurology 07/07/2023 PLAN: 1. Seizures: Continue Depakene 9 ml three times a day. Refill given. Continue Trileptal 7ml am and 10 ml pm. Refilled. Clonazepam 2 mg DT mg po prn seizure lasting longer than 5 minutes 2. continue psychiatry and psychology as available at this time 3. Vitamin D 4000 I units po daily. Script sent. MRI abdomen and kidneys At [facility] with sedation 1 yr 5 Continue Nephrology follow up. With adult kidney doctor at [facility] 6. Agree with mTOR inhibitors, which would help with renal , cerebral , seizures and skin lesions. Patient is medically optimized for surgery. This note will be forwarded to the referring provider. Patient should follow up with referring provider. Patient has been directed to discuss specific recovery questions with his/her surgeon/proceduralist. Attestation: I have spent 20 total minutes. Visit activities: - preparing to see the patient (e.g., review of tests) - obtaining and/or reviewing separately obtained history - performing a medically appropriate examination and/or evaluation - counseling and educating the patiecounseling and educating the patient/family/caregivernt/fami ly/caregiver - counseling and educating the patient/family/caregiver - ordering medications, tests, or procedures - documenting clinical information in the electronic or other health record Interviewer signature: DANIELLE Maguire 3:04 PM 06/12/2024 documented in this encounter [facility] 06-09-2024 Note Pre-Admission Testin g Consultation Gal Madison, [id number] 28 year old Male 06/12/2024 Consult placed to PAT by Dr. Hernandez due to significant PMH of HTN, Seizures PAT Triage Risk Score Total Score: 2 2 Patient is on more than 2 antihypertension medications. Gal Madison is scheduled for (Bilateral) DENTAL RESTORATIONS on 06/29 . Pre-Op diagnosis of: Pre-Op Diagnosis Codes: * Caries [K02.9] HISTORY OF PRESENT ILLNESS: Patient needs dental work under anesthesia Present with family: Brother, mother and father during appointment, primary caregivers Patient is here for pre-admission optimization and education prior to surgery. RECENT ILLNESS: Serious illness or hospitalization within the last six months. No STOP BANG: STOP-BANG Row Name 06/09/24 0908 History of sleep apnea? No Snoring No Tired/Fatigued No Observed Apnea No Pressure: Hypertension Yes BMI greater than 35 0 Age greater than 50 0 Neck circ greater than 40cm (15.75 ) No Gender male? 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 Social History Tobacco Use Smoking status: Never Smokeless tobacco: Never Substance Use Topics Alcohol use: Not Currently Drug use: Not Currently MEDICAL HISTORY: No past medical history on file. SURGICAL HISTORY: Past Surgical History: Procedure Laterality Date EXTRACTION, TOOTH Bilateral 11/02/2019 Procedure: EXTRACTION, TOOTH #1,16,17,30,31,32; Surgeon: Dennis Salmon DDS; [facility]; Service: Oral Past Medical History and Review of Systems Pulmonary - negative ROS Dental ROS (+) teeth problems missing Endo - negative ROS Neuro/Psych (+) seizures (5 year ago) Comment: Epilepsy Non verbal Cardiovascular (+) hypertension Comment: Denies CP, SOB, NOGUEIRA, syncope or palpitations GI/Hepatic/Renal Comment: Angiomyolipoma of kidney Heme/Other - negative ROS Other ROS: Tuberous sclerosis Caries PREVIOUS ANESTHETIC COMPLICATIONS: no history of difficult intubation , adverse effects of anesthetic agents, or family history of anesthesia-related problems, nor malignant hyperthermia and hx of previous anesthesia CURRENT MEDICATION LIST: Current Outpatient Medications Medication Sig Dispense Refill risperiDONE (RISPERDAL) 1 MG tablet Take 2 mg by mouth 2 times daily. acetaminophen (TYLENOL) 500 MG tablet Take 2 Tablets by mouth every 6 hours as needed for Pain or Fever. 60 Tablet 3 ibuprofen (MOTRIN) 600 MG tablet Take 1 Tablet by mouth every 6 hours as needed for Pain. 30 Tablet 3 losartan (COZAAR) 50 MG tablet Take 1 Tablet by mouth 2 times daily. ziprasidone (GEODON) 20 MG capsule Take 20 mg by mouth 2 times daily. (Patient not taking: Reported on 06/09/2024) oxcarbazepine (TRILEPTAL) 300 MG/5ML oral suspension Take 7 ml po in the morning and 10 ml at night x 30 days valproic acid (DEPAKENE) 250 MG/5ML SOLN oral solution Take 9 ml po tid Vitamin D3 (CHOLECALCIFEROL) 50 MCG (2000 UT) TABS tablet Take 2,000 Units by mouth. Everolimus 5 MG TBSO Take 10 mg by mouth. No current facility-administered medications for this visit. HEIGHT: 5' 9 WEIGHT: Weight was 120.2 kg on 10/19/2019 BMI: 33.6 VITAL SIGNS: BP 130/67 Pulse 66 Temp 97.2 ???F (36.2 ???C) (Temporal) Resp 16 Ht 1.753 m (5' 9 ) Wt 103.2 kg (227 lb 8 oz) SpO2 100% BMI 33.60 kg/m??? PAIN ASSESSMENT: Severity: 0 Location: N/A AIRWAY EXAM: Mallampati score: 3 TMD: Adequate Neck Extension/ Flexion: Adequate Mouth Opening: Adequate Dentition: Missing teeth Micrognathia/Overbite: No FUNCTIONAL CAPACITY: 4-10 mets , Patient able to walk 1-2 blocks PHYSICAL EXAM: Eyes: Deferred ENT: Carotids normal pulse without bruits Pulmonary: Chest clear to auscultation bilaterally Cardiovascular: RRR with S1S2 Abdomen: Deferred Extremities: Deferred Neurologic: deferred Psychiatric: non verbal Skin: No gross or obvious abnormalities on visible skin Assessment and Plan: 1) Pre-Admission Evaluation 2) Pre-Op Diagnosis Codes: * Caries [K02.9]Proceed to surgery 3) HTN-Stable with current medication regimen. Patient advised to hold losartan (COZAAR) on the morning of surgery d/t possible intra-operative hypotension. Patient advised to exercise regularly, eat a healthy diet and maintain a healthy lifestyle. LABS, TESTS, CONSULTS ORDERED: Orders AND Meds Signed During This Encounter Complete Blood Count Basic Metabolic Panel risperiDONE (RISPERDAL) 1 MG tablet LABORATORY DATA: CBC (last 3 years, up to 8 values) 06/09/2024 9: (more content not included)... [facility] 06-09-2024 Instructions Marysol Haritha, PRIVATE INVESTIGATOR-PERSONAL TRAINER - 06/09/2024 9:01 AM EDT On the morning of your surgery, please take only the following medications, with a small sip of water: risperiDONE (RISPERDAL) 1 MG tablet acetaminophen (TYLENOL) 500 MG tablet as needed oxcarbazepine (TRILEPTAL) 300 MG/5ML oral suspension valproic acid (DEPAKENE) 250 MG/5ML SOLN oral solution Vitamin D3 (CHOLECALCIFEROL) 50 MCG (2000 UT) TABS tablet Everolimus 5 MG TBSO Hold losartan (COZAAR) in the morning of you surgery Do not take any Aspirin products 7 days before surgery. Do not take Ibuprofen, Aleve, Advil, Motrin or any other NSAIDS (celebrex, meloxicam, naproxen, diclofenac) 3 days before surgery. May take over the counter Acetaminophen (Tylenol) as needed for pain. Please hold all Vitamin E, [place] 3, fish oil and herbal supplements for 1 week prior to surgery. You will receive a call the day before surgery between 10 am and 3 pm notifying you what time to arrive for surgery. Eating and drinking before surgery: Adult Patients: No food or drink for 8 hours prior to surgery check in time. Plain water is allowed up to 2 hours prior to your surgery arrival time. A sip of water with approved morning medications is acceptable. Enhanced Recovery After Surgery (ERAS), bariatric, and endoscopy/colonoscopy patients should follow their surgeon s/proceduralist s instructions for clear fluids prior to surgery. Post-op Nausea and Vomiting: A risk of anesthesia is nausea and/or vomiting (PONV). Certain patients are at higher risk than others. Talk to your anesthesiologist about the plan to minimize this risk. In general, it is best to start with only ice chips or small sips of water, then progress to clear, non-alcoholic fluids. You do not have to eat if you do not feel like it; fluids are the most important in the first 24 hours after surgery. If you start to eat, try bananas, applesauce, plain toast, saltine crackers, or broth; avoid fried or fatty foods. Make sure to eat something about 15 minutes before taking any pain medications. Seek medical attention for any prolonged PONV and signs of dehydration. Patients whose assigned sex at was female, and are starting puberty or beyond, will be urine tested for per hospital policy. Please use this CHECKLIST to prepare for your surgery/procedure: ? Assume that any lab or testing done during your Pre-admission testing appointment is within normal limits unless otherwise contacted. ? Expect a call from [facility] one business day prior to surgery for surgery arrival time and location. ? Please plan to restart your medications the day after surgery unless otherwise explicitly instructed. ? Please contact your surgeon s/proceduralist s office for any surgical or recovery types of questions. ? CANCELLING YOUR SURGERY/PROCEDURE: If you get a cold, are not feeling well, or become , please call your surgeon s office as soon as possible. ? Refer to your Preparing for Your Surgery/Procedure booklet or [email or web address] if you have questions. Contact the Pre-Admission Testing department at [phone] or your surgeon's office with any questions that are not answered. ON THE DAY OF SURGERY: ? DO bring your ID, insurance card, medication list, and a small amount of macario for filling prescriptions and any medical co-pays. ? Do NOT wear any jewelry, (including rings, earrings, or mouth, tongue, or body piercings). Metal jewelry could cause constriction, amputation, or hou. Loose or bulky things in your mouth can be unsafe and result in breathing problems. ? DO bring glasses if you wear contacts and other assistance items such as oxygen, inhaler, cane, walker, etc. ? Do NOT bring valuables, credit cards, or large amounts of macario. ? Do NOT wear lotion or strong-smelling fragrance (perfume, cologne, cream or lotion). ? ARRANGE FOR A RIDE: If you are scheduled to go home the same day of surgery, a responsible adult MUST drive or accompany you home in a car, cab, shared ride service, or Metro-van. You will not be allowed to drive yourself home or travel home alone. Your surgery may be cancelled if you do not have a ride. A responsible adult must stay with you after surgery. [facility] if you need [facility] assistance or have concerns about going home [phone]. ? SLEEP APNEA PATIENTS: Bring your sleep apnea machine and mask. ? PLEASE BE ON TIME. A late arrival may result in the cancellation/ delay of your surgery. [facility]; it is our pleasure to care for you documented in this encounter [facility] 04-28-2024 History of Present illness Narrative ----- Sunday, April 28, 2024 at 11:17:47 AM ----- ----- Provider: [id number] Blackmon DDS -- Clinic: [place] [address] ----- OR EVALUATION Patient presents for evaluation to determine best course of treatment due to history of Hypertension, seizure, neurocognitive disorder, epileptic seizure, Rhabdomyoma, aggression. Patient is accompanied by mother and father for today's appointment. Patient did not cooperate for any examination. Clinical findings: Unable to assess It is best suited that this patient have full comprehensive examination, radiographs and treatment completed in the OR setting or in-office IV sedation setting. Explained that the patient will be added to our OR and IV sedation waiting list, and the legal guardian will be contacted once a time slot becomes available. Legal Guardians: Mother: Carole Madison Father: Ian Madison NOTE: Patient will be placed on both the in-office IV sedation and Adult OR wait lists. Next Visit: Adult OR or in-office IV sedation documented in this encounter [facility] 08-27-2022 Note HNO ID: [id number] Author: Liana Biswas APRN.CUSTOMER SERVICE TELLER Service: Nursing Author Type: Nurse Cotton Header Type: Anesthesia Procedure Notes Filed: 08/27/2022 11:44 AM Note Text: ANESTHESIOLOGY PROCEDURE NOTE Airway General Information Procedure Start Time/Medication Administration: 08/27/2022 11:34 AM Procedure End Time: 08/27/2022 11:36 AM Patient location during procedure: OR Timeout Performed Pre-procedure: timeout performed Consent Obtained: Yes Patient identity confirmed: arm band and patient Staffing Anesthesiologist: Lauren Bravo MD Performed by: anesthesiologist Indications and Patient Condition Indications for airway management: anesthesia and airway protection Preoxygenated: yes anesthesia circuit Patient position: sniffing Method: asleep Final Airway Details Final airway type: endotracheal airway Final Endotracheal Airway: ETT Cuffed: yes Successful intubation technique: direct laryngoscopy Endotracheal tube insertion site: oral Blade: Alejandro Blade size: #4 ETT size (mm): 7.5 Measured from: lips Measurement (cm): 24 Placement verified by: chest auscultation and capnometry Cormack-Lehane Classification: grade IIb - view of arytenoids or posterior of glottis only Number of attempts at approach: 1 SIGNATURE: Liana Biswas APRN.CUSTOMER SERVICE TELLER PATIENT NAME: Gal Madison DATE: August 27, 2022 TIME: 11:44 AM CSN: [id number] [facility] 08-27-2022 Note HNO ID: [id number] Author: RT Adrian(R) Service: Radiology Author Type: Technologist Type: Progress Notes Filed: 08/27/2022 12:36 PM Note Text: Radiology Service Progress Note DATE OF SERVICE: August 27, 2022 TIME: 12:35 PM PATIENT IDENTITY VERIFICATION COMPLETED USING TWO (2) STANDARD IDENTIFIERS: Name and Date of confirmed by identification band. FALL SCREENING: Has the patient had 2 falls in the last year or 1 fall with injury or currently using an Ambulatory Assistive Device (Walker, Cane, Wheelchair, Crutches, etc.)? Inpatient: Screened on floor PATIENT GENDER DATA: Male PATIENT RELEVANT IMPLANT DATA REVIEWED: Yes ALLERGIES: Reviewed and unchanged CONTRAST ALLERGY: NO. EXAM: MRI - CONTRAST TYPE: GROUP II PERIPHERAL IV DATA: Inpatient - refer to [facility] documentation RADIOLOGY DEPARTMENT: MR; Exam(s) Completed: Body: Renal Head: Routine Brain SIGNATURE: Elvia SierraRT diane(R) PATIENT NAME: Gal Madison DATE: August 27, 2022 TIME: 12:35 PM [facility] 08-27-2022 Note HNO ID: [id number] Author: АНДРЕЙ Oakes) Service: Radiology Author Type: Technologist Type: Progress Notes Filed: 08/28/2022 6:33 AM Note Text: Patient's mother refused anesthesia as ordered for MRI scans. Best images possible d/t patient motion/condition. [facility] 08-27-2022 History of Present illness Narrative Radiology Service Progress Note DATE OF SERVICE: August 27, 2022 TIME: 12:35 PM PATIENT IDENTITY VERIFICATION COMPLETED USING TWO (2) STANDARD IDENTIFIERS: Name and Date of confirmed by identification band. FALL SCREENING: Has the patient had 2 falls in the last year or 1 fall with injury or currently using an Ambulatory Assistive Device (Walker, Cane, Wheelchair, Crutches, etc.)? Inpatient: Screened on floor PATIENT GENDER DATA: Male PATIENT RELEVANT IMPLANT DATA REVIEWED: Yes ALLERGIES: Reviewed and unchanged CONTRAST ALLERGY: NO. EXAM: MRI - CONTRAST TYPE: GROUP II PERIPHERAL IV DATA: Inpatient - refer to [facility] documentation RADIOLOGY DEPARTMENT: MR; Exam(s) Completed: Body: Renal Head: Routine Brain SIGNATURE: Elvia RT Janet(R) PATIENT NAME: Gal Madison DATE: August 27, 2022 TIME: 12:35 PM Patient's mother refused anesthesia as ordered for MRI scans. Best images possible d/t patient motion/condition. documented in this encounter [facility] 08-26-2022 Note HNO ID: [id number] Author: Jem Hines RN Service: Nursing Author Type: Registered Nurse Type: Nursing Progress Note Filed: 08/26/2022 11:17 AM Note Text: Mother bringing list of meds to presurg tomorrow. Didn't have time to go over them at present. 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, not intractable [facility] Diagnosis Neurocognitive disorder- Primary Unspecified persistent mental disorders due to conditions classified elsewhere Aggression Explosive personality disorder [facility] Diagnosis Caries- Primary Unspecified dental caries [facility] Diagnosis Pre-op testing- Primary Preoperative examination, unspecified Primary hypertension Unspecified essential hypertension Body mass index (BMI) 33.0-33.9, adult documented in this encounter [facility] Summary Purpose Family History No Family History Records FoundNo Family History Records FoundNo Family History Records FoundNo Family History Records Found Advance Directives No Advanced Directives Records FoundNo Advanced Directives Records FoundNo Advanced Directives Records FoundNo Advanced Directives Records Found Reason for Referral Specialty Diagnoses / Procedures Referred By Contac t Referred To Contact Anesthesiology Diagnoses Neurocognitive disorder Aggression Darrel Blackmon, DDS [address] [place] [address] [facility] [address] [id number] Referral ID Status Reason Start Date Expiration Date V isits Requested Visits Authorized [id number] Authorized 04/28/2024 04/28/2025 1 1 Scheduling Instructions Your surgical team will reach out to you to schedule a pre-admission testing appointment. Question Answer Reason for consult? Recommended PAT Risk Score Comments Patient requires IV sedation or general anesthesia for comprehensive dental treatment. Specialty Diagnoses / Procedures Referred By Contac t Referred To Contact Anesthesiology Diagnoses Caries Yazan Pedraza, DDS [address] [place] [place] [id number] [facility] [address] [id number] Referral ID Status Reason Start Date Expiration Date V isits Requested Visits Authorized [id number] Authorized 05/16/2024 05/16/2025 1 1 Additional Source Comments Care Teams (unrecognized sec tion and content) Sales Support Representative Relationship Specialty Start Date End Date Irma Pittman MD [address] [place], [place] [id number] PCP - General 04/21/19 Clifton Wayne MD [address] [facility] [address] [place], [place] [id number] Attending Physician Neurology 10/03/13 Sales Support Representative Relationship Specialty Start Date End Date Ravinder Langford PCP - General 06/23/02 Sales Support Representative Relationship Specialty Start Date End Date Irma Pittman MD [address] [place], [place] [phone] PCP - General 04/21/19 Clifton Wayne MD [address] [facility] [address] [place], [place] [id number] Attending Provider Neurology 10/03/13 (unrecognized sect ion and content) No Status Records FoundNo Status Records FoundNo Status Records FoundNo Status Records Found INFORMATION SOURCE (unrecogn ized section and content) DATE CREATED AUTHOR 08/29/2022 [facility] DATE CREATED AUTHOR AUTHOR'S ORGANIZ ATION 10/24/2022 [facility] DATE CREATED AUTHOR AUTHOR'S ORGANIZ ATION 07/14/2023 [facility] DATE CREATED AUTHOR AUTHOR'S ORGANIZ ATION 06/14/2024 [facility] Source Comments (unrecognize d section and content) In the event this informatio n is protected by the Federal Confidentiality of Alcohol and Drug Abuse Patient Records regulations: The Federal rules restrict any use of the information to criminally investigate or prosecute any alcohol or drug abuse patient.[facility] Reason for Visit (unrecogniz ed section and content) Specialty Diagnoses / Procedures Referred By Jason valle Referred To Contact Anesthesiology Diagnoses Neurocognitive disorder Aggression Darrel Blackmon, DDS [address] [place] [address] [facility] [address] [place] [address] Referral ID Status Reason Start Date Expiration Date Visits Re quested Visits Authorized [id number] Closed 04/28/2024 04/28/2025 1 1 FOR RECORDS PERTAINING TO PATIENTS WHO ARE OR HAVE BEEN ENROLLED IN A CHEMICAL DEPENDENCY/SUBSTANCEABUSE PROGRAM, SOME INFORMATION MAY BE OMITTED. This clinical summary was aggregated from multiple sources. Caution should be exercised in using it in the provision of clinical care. This summary normalizes information from multiple sources, and as a consequence, information in this document may materially change the coding, format and clinical context of patient data. In addition, data may be omitted in some cases. CLINICAL DECISIONS SHOULD BE BASED ON THE PRIMARY CLINICAL RECORDS. [facility]. provides no warranty or guarantee of the accuracy or completeness of information in this document.
[2024-06-21 15:37] LABS: Anion Gap 5 (5-15); BUN 17 mg/dL (7-18); BUN/Creat Ratio 19.7 RATIO (10-20); Chloride 108 mmol/L (98-107); Creatinine, Serum 0.86 mg/dL (0.70-1.30); EST Glomerular Filtration Rate 110 mL/min (>60); Est Glom Filt Rate - Afr Amer 134 mL/min (>60); Glucose 124 mg/dL (74-106); Sodium Level 139 mmol/L (136-145)
== END | disposition home or self-care (01) ==
PROVIDERS: PCP Family Medicine; Referring Provider Pediatrics Pediatric Nephrology; Visit Provider Pediatrics Pediatric Nephrology
DX: I10 Essential (primary) hypertension (principal)
CPT/HCPCS: 36415; 80048

== ENCOUNTER → 2024-06-26 | Outpatient (CLI) | payer MEDICAID, SELFPAY ==
--- OUTSIDE RECORDS SUMMARY | 2024-06-26 12:45 | XMS RPT_ITS | CCD ---
Author Organization [facility] Care Team Providers Care Blade Boner Name Role Phone Tone ARRINGTON, Clifton Unavailable [phone] Irma Pittman MD Primary Care Provider [phone] GLADYS BUSH Referring UnavailRAVINDER Whiting Primary Care Unavailable TALMAGEESHA Referring Unavailable TALESHA US Attending Unavailable TALESHA US Admitting Unavailable RAVINDER LANGFORD Primary Care Unavailable Ravinder Langford Primary Care Provider Unavail able GLADYS BUSH Referring UnavailRAVINDER Whiting Primary Care Unavailable Tone ARRINGTON, Clifton Unavailable [phone] Irma Pittman MD Primary Care Provider IRMA PITTMAN Referring Unavailable IRMA PITTMAN Primary [...] gap [Moles/Vol] 15 mmol/L Normal 10-20 [facility] Comment on above: Performed By: #### C H8 #### [facility] [address], [place], Calcium [Mass/Vol] 8.9 mg/dL Normal 8.6-10.3 [facility] Comment on above: Performed By: #### C H8 #### [facility] [address], [place], Chloride [Moles/Vol] 106 mmol/L Normal 98-[address] [facility] Comment on above: Performed By: #### C H8 #### [facility] [address], [place], CO2 [Moles/Vol] 26 mmol/L Normal 21-31 The [facility] Comment on above: Performed By: #### C H8 #### [facility] [address], [place], Creatinine [Mass/Vol] 0.75 mg/dL Normal 0.70-1.[address] [facility] Comment on above: Performed By: #### C H8 #### [facility] [address], [place], ESTIMATED GFR (CKD-EPI) 125 mL/min/1.73sqm Normal >=60 The [facility] Comment on above: Result Comment: [...] Inclusion of Race in Diagnosing Kidney Disease. [place] Journal of Kidney Diseases 2021;79(2):268-88.e1. 2. N Engl J Med 1 Vol. 385 Issue 19 Pages 4271-6301 Performed By: #### C H8 #### [facility] [address], [place], Glucose [Mass/Vol] 90 mg/dL Normal 74-109 [facility] Comment on above: Performed By: #### C H8 #### S [facility] [address] [place] [address], Potassium [Moles/Vol] 4.5 mmol/L Normal 3.5-5.0 The [facility] Comment on above: Performed By: #### C H8 #### [facility] [address], [place], Sodium [Moles/Vol] 142 mmol/L Normal 136-145 The [facility] Comment on above: Performed By: #### C H8 #### [facility] [address], [place], Urea nitrogen [Mass/Vol] 18 mg/dL Normal 7-25 [facility] Comment on above: Performed By: #### C H8 #### [facility] [address], [place], Basic metabolic 2000 panelon 06-09-2024 Anion gap [Moles/Vol] 15 mmol/L 10 - 20 [facility] Calcium [Mass/Vol] 8.9 mg/dL 8.6 - 10. 3 mg/dL [facility] Chloride [Moles/Vol] 106 mmol/L 98 - 107 mmol/L [facility] CO2 [Moles/Vol] 26 mmol/L 21 - 31 mmol/L [facility] Creatinine [Mass/Vol] 0.75 mg/dL 0.70 - 1.30 mg/dL [facility] GFR/1.73 sq M.predicted CKD-EPI (S/P/Bld) [Vol rate/Area] 125 - PINF [facility] Comment on above: 2020 CKD EPI Equatio [...] Inclusion of Race in Diagnosing Kidney Disease. [place]istan[place] Journal of Kidney Diseases 2021;79(2):268-88.e1. 2. N Engl J Med 2020 Vol. 385 Issue 19 Pages 9277-2494 Glucose [Mass/Vol] 90 mg/dL 74 - 109 mg/dL [facility] Interpretation and review of laboratory results Normal [facility] Potassium [Moles/Vol] 4.5 mmol/L 3.5 - 5.0 mmol/L [facility] Sodium [Moles/Vol] 142 mmol/L 136 - 145 mmol/L [facility] Urea nitrogen [Mass/Vol] 18 mg/dL 7 - 25 mg/dL [facility] CBC panel Auto (Bld)on 06-09 Erythrocyte distribution width (RBC) [Ratio] 15.7 % High 11.5 - 14.5 % [facility] Hematocrit (Bld) [Volume fraction] 32.6 % Low 41.0 - 53.0 % [facility] Hemoglobin (Bld) [Mass/Vol] 10.7 g/dL Low 13.9 - 16.3 g/dL [facility] Interpretation and review of laboratory results Abnormal [facility] MCH (RBC) [Entitic mass] 27.9 pg 26.0 - 34.0 pg [facility] MCHC (RBC) [Mass/Vol] 32.9 g/dL 32.0 - 35.9 g/dL [facility] MCV (RBC) [Entitic vol] 85 fL 80 - 100 fL [facility] Platelet mean volume (Bld) [Entitic vol] 7.8 fL 7.5 - 11.2 fL [facility] Platelets (Bld) [#/Vol] 307 10*3/uL 150 - 400 K/uL [facility] RBC (Bld) [#/Vol] 3.84 10*6/uL Low [facility] WBC (Bld) [#/Vol] 9.2 10*3/uL 4.5 - 11.5 K/uL [facility] COMPLETE BLOOD COUNTon 06-09 Erythrocyte distribution width (RBC) [Ratio] 15.7 % High 11.5-14.5 [facility] Comment on above: Performed By: #### C BC #### [facility] [address] [place] [address], Hematocrit (Bld) [Volume fraction] 32.6 % Low 41.0-53.0 The [facility] Comment on above: Performed By: #### C BC #### [facility] [address], [place], Hemoglobin (Bld) [Mass/Vol] 10.7 g/dL Low 13.9-16.3 [facility] Comment on above: Performed By: #### C BC #### [facility] [address], [place], MCH (RBC) [Entitic mass] 27.9 pg Normal 26.0-34.0 [facility] Comment on above: Performed By: #### C BC #### [facility] [address], [place], MCHC (RBC) [Mass/Vol] 32.9 g/dL Normal 32.0-35.9 [facility] Comment on above: Performed By: #### C BC #### [facility] [address], [place], MCV (RBC) [Entitic vol] 85 fL Normal 80-100 [facility] Comment on above: Performed By: #### C BC #### [facility] [address], [place], Platelet mean volume (Bld) [Entitic vol] 7.8 fL Normal 7.5-11.2 [facility] Comment on above: Performed By: #### C BC #### [facility] [address], [place], Platelets (Bld) [#/Vol] 307 10*3/uL Normal 150-400 [facility] Comment on above: Performed By: #### C BC #### [facility] [address], [place], RBC (Bld) [#/Vol] 3.84 10*6/uL Low 4.50-5.90 The [facility] Comment on above: Performed By: #### C BC #### [facility] [address], [place], WBC (Bld) [#/Vol] 9.2 10*3/uL Normal 4.5-11.5 [facility] Comment on above: Performed By: #### C BC #### [facility] [address], [place], Patient Instructionson 06-09 [employer] Engineer Authentication Interface Message Text On the morning [...] for pain. Please hold all Vitamin E, [place] 3, fish oil and herbal supplements for [...] otherwise contacted. ? Expect a call from [facility] one business day prior to surgery for [...] your Preparing for Your Surgery/Procedure booklet or [email or web address] if you have questions. Contact the Pre-Admission Testing department at [phone] or your surgeon's office with any questions [...] a car, cab, shared ride service, or [employer]. You will not be allowed to drive yourself home or travel home alone. Your surgery may be cancelled if you do not have a ride. A responsible adult must stay with you after surgery. Please call [employer] if you need transportation assistance or have concerns about going home [phone]. ? SLEEP APNEA PATIENTS: Bring your sleep apnea machine and mask. ? PLEASE BE ON TIME. A late arrival may result in the cancellation/ delay of your surgery. Thank you for choosing [facility]; it is our pleasure to care for you Normal The [facility] Progress Noteson 05-15-2024 [employer] Energy Systems Engineer Authentication Interface Message Text Parent/guardian/patie nt was contacted for PAT AND IV Sedation scheduled -- confirmed information with patient, also informed mom importance of going to PAT appointment -- if missed, IV Sedation will be cancelled, and you will be placed back on wait list 06/29/2024----- Wednesday, May 15, 2024 at 2:05:14 PM ----- ----- Provider: THOUSTONMelanie Kaiser Dental-Wreath Machine Operator -- Clinic: [place] ----- Normal [facility] Progress Noteson 04-28-2024 [employer] Systems Engineer Authentication Interface Message Text ----- Sunday, April 28, 2024 at 11:17:47 AM ----- ----- Provider: [id number] Blackmon DDS -- Clinic: [place] [address] ----- OR EVALUATION Patient presents for evaluation [...] OR or in-office IV sedation Normal The [facility] Everolimus, Bloodon 07-09-20 [facility], Blood 7.0 ng/mL Normal 3-8 ng/mL [facility] Comment on above: Order Comment: Relea se to patient->Automatic 40698&Blood Result Comment: ADDITIONAL INFORMATION Target steady-state trough concentrations vary depending on the type of transplant, concomitant immunosuppression, clinical/institutional protocols, and time post-transplant. Results should be interpreted in conjunction with this clinical information and any physical signs/symptoms of rejection/toxicity. Testing performed by Liquid Chromatography-Tandem Mass Spectrometry (LC-MS/MS). This test was developed and its performance characteristics determined by [facility] in a manner consistent with CLIA requirements. This test has not been cleared or approved by the U.S. Food and Drug Administration. Test Performed by: [place] [address] Clinical Pharmacy Coordinator: Jerardo Marsh M.D. Ph.D.; CLIA# [id number] Performed By: #### E VERB #### [place] [id number] Oxcarbazepine/Trileptalon Oxcarbazepine/Trile ptal 21 mcg/mL Normal 10 - 35 [facility] Comment on above: Order Comment: Relea se to patient->Automatic 83731&Blood Result Comment: ADDITIONAL INFORMATION This test was developed and its performance characteristics determined by [facility] in a manner consistent with CLIA requirements. This test has not been cleared or approved by the U.S. Food and Drug Administration. Test Performed by: [place] [address] Clinical Pharmacy Coordinator: Jerardo Marsh M.D. Ph.D.; CLIA# [id number] Performed By: #### O XCAR #### [address] [address] Comp Metabolic Panelon 07-07 Bili,Total <0.2 Normal [facility] Comment on above: Order Comment: Relea se to patient->Automatic 24441&Blood Performed By: #### C MP #### [address] [address] Albumin [Mass/Vol] 4.1 g/dL Normal 3.5-5.0 [facility] Comment on above: Order Comment: Relea se to patient->Automatic 99339&Blood Performed By: #### C MP #### [place] [address] [place] [address] ALP [Catalytic activity/Vol] 117 U/L Normal 40-129 [facility] Comment on above: Order Comment: Relea se to patient->Automatic 16982&Blood Performed By: #### C MP #### [place] [address] [place] [address] ALT [Catalytic activity/Vol] 50 U/L High 0-46 [facility] Comment on above: Order Comment: Relea se to patient->Automatic 08017&Blood Performed By: #### C MP #### [address] [address] AST [Catalytic activity/Vol] 39 U/L High 0-37 [facility] Comment on above: Order Comment: Relea se to patient->Automatic 69960&Blood Performed By: #### C MP #### [address] [address] Calcium [Mass/Vol] 9.2 mg/dL Normal 7.6-11.0 [facility] Comment on above: Order Comment: Relea se to patient->Automatic 05280&Blood Performed By: #### C MP #### [address] [address] CO2 [Moles/Vol] 23.9 mmol/L Normal 22.0-29.0 [facility] Comment on above: Order Comment: Relea se to patient->Automatic 73942&Blood Performed By: #### C MP #### [address] [address] Creatinine [Mass/Vol] 0.81 mg/dL Normal 0.70-1.20 [facility] Comment on above: Order Comment: Relea se to patient->Automatic 64778&Blood Performed By: #### C MP #### [address] [address] Glucose [Mass/Vol] 98 mg/dL Normal 70-99 [facility] Comment on above: Order Comment: Relea se to patient->Automatic 65776&Blood Result Comment: Crit eria for Diagnosis of Diabetes: Fasting Specimen (no caloric intake for at least 8 hours): <100 mg/dL Normal 100-125 mg/dL Increased risk for Diabetes >125 mg/dL Diagnostic for Diabetes Random Glucose (any time of day without regard to last meal): > or = 200 mg/dL plus Classic Symptoms of Diabetes Performed By: #### C MP #### [address] [address] Protein [Mass/Vol] 7.2 g/dL Normal 5.9-8.4 [facility] Comment on above: Order Comment: Relea se to patient->Automatic 09472&Blood Performed By: #### C MP #### [address] [address] Urea nitrogen [Mass/Vol] 15 mg/dL Normal 4-19 [facility] Comment on above: Order Comment: Relea se to patient->Automatic 50229&Blood Performed By: #### C MP #### [address] [address] Chloride [Moles/Vol] 105 mmol/L Normal 96-108 [facility] Comment on above: Order Comment: Relea se to patient->Automatic 93198&Blood Performed By: #### C MP #### [address] [address] Potassium [Moles/Vol] 4.0 mmol/L Normal 3.3-5.1 [facility] Comment on above: Order Comment: Relea se to patient->Automatic 93250&Blood Performed By: #### C MP #### [facility] [place] [address] [place] [address] Sodium [Moles/Vol] 141 mmol/L Normal 133-145 [facility] Comment on above: Order Comment: Relea se to patient->Automatic 37915&Blood Performed By: #### C MP #### [address] [address] Complete Blood Counton 07-07 Differential Complete Automated Normal [facility] Comment on above: Performed By: #### C BC #### [address] [address] Basophils/100 WBC (Bld) 0.60 % Normal 0.00-1.00 [facility] Comment on above: Performed By: #### C BC #### [address] [address] Eosinophils/100 WBC (Bld) 0.40 % Normal 0.00-3.00 [facility] Comment on above: Performed By: #### C BC #### [address] [address] Erythrocyte distribution width (RBC) [Ratio] 14.4 % Normal 0.0-14.4 [facility] Comment on above: Performed By: #### C BC #### [address] [address] Hematocrit (Bld) [Volume fraction] 37.7 % Low 41.0-50.0 [facility] Comment on above: Performed By: #### C BC #### [address] [address] Hemoglobin (Bld) [Mass/Vol] 11.9 g/dL Low 13.5-16.5 [facility] Comment on above: Performed By: #### C BC #### [address] [place] [id number] Immature granulocytes/100 WBC (Bld) 0.90 % Normal [facility] Comment on above: Result Comment: Sofiya ture Granulocyte Percent includes promyelocytes, myelocytes, and metamyelocytes. IG% > 1.0 indicates a left shift is present. With automated differentials, bands are included in the neutrophil count and not in the Immature Granulocyte Percent. Performed By: #### C BC #### [address] [address] Lymphocytes/100 WBC (Bld) 25.6 % Normal 24.0-44.0 [facility] Comment on above: Performed By: #### C BC #### [address] [address] MCH (RBC) [Entitic mass] 27.2 pg Normal 26.0-34.0 [facility] Comment on above: Performed By: #### C BC #### [address] [address] MCHC 31.6 % Normal 31.0-37.0 [facility] Comment on above: Performed By: #### C BC #### [address] [address] MCV (RBC) [Entitic vol] 86.3 fL Normal 80.0-100.0 [facility] Comment on above: Performed By: #### C BC #### [address] [address] Monocytes/100 WBC (Bld) 7.20 % High 3.00-6.00 [facility] Comment on above: Performed By: #### C BC #### [address] [id number] Neutrophils (Bld) [#/Vol] 7.4 10*3/uL Normal 1.8-7.4 [facility] Comment on above: Performed By: #### C BC #### [address] [address] Neutrophils/100 WBC (Bld) 65.3 % Normal 35.0-66.0 [facility] Comment on above: Performed By: #### C BC #### [address] [address] Nucleated RBC/100 WBC (Bld) [Ratio] 0.0 % Normal -1.0-0.0 [facility] Comment on above: Performed By: #### C BC #### [address] [address] Platelet mean volume (Bld) [Entitic vol] 9.7 fL Normal [facility] Comment on above: Result Comment: MPV is platelet range and age dependent Performed By: #### C BC #### [address] [address] Platelets (Bld) [#/Vol] 329 10*3/uL Normal 150-450 [facility] Comment on above: Performed By: #### C BC #### [address] [address] RBC 4.37 10E12/L Low 4.50-5.50 [facility] Comment on above: Performed By: #### C BC #### [address] [address] WBC (Bld) [#/Vol] 11.4 10*3/uL High 4.5-11.0 [facility] Comment on above: Performed By: #### C BC #### [address] [address] Complete Blood Count with Di fferentialon 07-07-2023 Basophils/100 WBC (Bld) 0.60 % 0.00 - 1.00 % [facility] Differential Complete Automated [facility] Eosinophils/100 WBC (Bld) 0.40 % 0.00 - 3.00 % [facility] Erythrocyte distribution width (RBC) [Ratio] 14.4 % 0.0 - 14.4 % [facility] Hematocrit (Bld) [Volume fraction] 37.7 % Low 41.0 - 50.0 % [facility] Hemoglobin (Bld) [Mass/Vol] 11.9 g/dL Low 13.5 - 16.5 g/dl [facility] Immature granulocytes/100 WBC (Bld) 0.90 % [facility] Comment on above: Immature Granulocyte Percent includes promyelocytes, myelocytes, and metamyelocytes. IG% > 1.0 indicates a left shift is present. With automated differentials, bands are included in the neutrophil count and not in the Immature Granulocyte Percent. Interpretation and review of laboratory results Abnormal [facility] Lymphocytes/100 WBC (Bld) 25.6 % 24.0 - 44.0 % [facility] MCH (RBC) [Entitic mass] 27.2 pg 26.0 - 34.0 pg [facility] MCHC 31.6 % 31.0 - 37.0 % [facility] MCV (RBC) [Entitic vol] 86.3 fL 80.0 - 100.0 fl [facility] Monocytes/100 WBC (Bld) 7.20 % High 3.00 - 6.00 % [facility] Neutrophils (Bld) [#/Vol] 7.4 10*3/uL [facility] Neutrophils/100 WBC (Bld) 65.3 % 35.0 - 66.0 % [facility] Nucleated RBC/100 WBC (Bld) [Ratio] 0.0 % -1.0 - 0.0 % [facility] Platelet mean volume (Bld) [Entitic vol] 9.7 fL [facility] Comment on above: MPV is platelet range and age dependent Platelets (Bld) [#/Vol] 329 10*3/uL [facility] RBC (Bld) [#/Vol] 4.37 10*6/uL Low [facility] WBC (Bld) [#/Vol] 11.4 10*3/uL High [facility] Comprehensive metabolic pane josué 07-07-2023 Albumin [Mass/Vol] 4.1 g/dL 3.5 - 5.0 g/dL [facility] ALP [Catalytic activity/Vol] 117 U/L 40 - 129 U/L [facility] ALT [Catalytic activity/Vol] 50 U/L High 0 - 46 U/L [facility] AST [Catalytic activity/Vol] 39 U/L High 0 - 37 U/L [facility] Bilirubin [Mass/Vol] mg/dL mg/dL [facility] Calcium [Mass/Vol] 9.2 mg/dL 7.6 - 11. 0 mg/dL [facility] Chloride [Moles/Vol] 105 mmol/L 96 - 108 mmol/L [facility] CO2 [Moles/Vol] 23.9 mmol/L 22.0 - 29.0 mmol/L [facility] Creatinine [Mass/Vol] 0.81 mg/dL 0.70 - 1.20 mg/dL [facility] Glucose [Mass/Vol] 98 mg/dL 70 - 99 mg/dL [facility] Comment on above: Criteria for Diagnos is of Diabetes: Fasting Specimen (no caloric intake for at least 8 hours): <100 mg/dL Normal 100-125 mg/dL Increased risk for Diabetes >125 mg/dL Diagnostic for Diabetes Random Glucose (any time of day without regard to last meal): > or = 200 mg/dL plus Classic Symptoms of Diabetes Interpretation and review of laboratory results Abnormal [facility] Potassium [Moles/Vol] 4.0 mmol/L 3.3 - 5.1 mmol/L [facility] Protein [Mass/Vol] 7.2 g/dL 5.9 - 8.4 g/dL [facility] Sodium [Moles/Vol] 141 mmol/L 133 - 145 mmol/L [facility] Urea nitrogen [Mass/Vol] 15 mg/dL 4 - 19 mg/dL [facility] Release to patient->Automatic [facility] LAB [facility] Progress Noteon 07-07-2023 [employer] Engineer Authentication Interface Message Text Gal is a [...] thickening is (more content not included)... Normal [facility] Valproic Acidon 07-07-2023 Valproic Acid 74 ug/mL Normal 50-100 [facility] Comment on above: Order Comment: Relea se to patient->Automatic 99514&Blood Performed By: #### V AMBER #### [facility] [place] [address] Valproic Acid 74 ug/mL 50 - 100 ug/mL [facility] Release to patient->Automatic [facility] Progress Noteon 01-06-2023 [employer] Systems Engineer Authentication Interface Message Text Gal is a [...] dominant lesio (more content not included)... Normal [facility] CBC panel Auto (Bld)on 10-23 Erythrocyte distribution width (RBC) [Ratio] 14.8 % Normal 11.5-15.0 [facility] Comment on above: Order Comment: Jonny robledo Type: BLOOD SPECIMEN Ordering Facility: [facility] Address: [address] [place] [address] Performed By: #### 5 8410-2 #### [facility] CLIA [id number] [address] [place] [address] [place] Hematocrit (Bld) [Volume fraction] 35.0 % Low 39.0-51.0 [facility] Comment on above: Order Comment: Jonny robledo Type: BLOOD SPECIMEN Ordering Facility: [facility] Address: [address] [place] [address] Performed By: #### 5 8410-2 #### [facility] CLIA [id number] [address] [place] [address] [place] Hemoglobin (Bld) [Mass/Vol] 11.4 g/dL Low 13.0-17.0 [facility] Comment on above: Order Comment: Speci men Type: BLOOD SPECIMEN Ordering Facility: [facility] Address: [address] [place] [address] Performed By: #### 5 8410-2 #### [facility] CLIA [id number] [address] [place] [address] [place] MCH (RBC) [Entitic mass] 27.6 pg Normal 26.0-34.0 [facility] Comment on above: Order Comment: Speci men Type: BLOOD SPECIMEN Ordering Facility: [facility] Address: [facility] [place] [address] Performed By: #### 5 8410-2 #### [facility] CLIA [id number] [address] [place] [address] [place] MCHC (RBC) [Mass/Vol] 32.6 g/dL Normal 30.5-36.0 [facility] Comment on above: Order Comment: Speci men Type: BLOOD SPECIMEN Ordering Facility: [facility] Address: [address] [place] [address] Performed By: #### 5 8410-2 #### [facility] CLIA [id number] [address] [place] [address] [place] MCV (RBC) [Entitic vol] 84.7 fL Normal 80.0-100.0 [facility] Comment on above: Order Comment: Speci men Type: BLOOD SPECIMEN Ordering Facility: [facility] Address: [address] [place] [address] Performed By: #### 5 8410-2 #### [facility] CLIA [id number] [address] [place] [address] [place] Nucleated RBC (Bld) [#/Vol] 10*3/uL Normal <0.01 [facility] Comment on above: Order Comment: Speci men Type: BLOOD SPECIMEN Ordering Facility: [facility] Address: [address] [place] [address] Performed By: #### 5 8410-2 #### [facility] CLIA [id number] [address]21 [place] [address] [place] Platelet mean volume (Bld) [Entitic vol] 9.4 fL Normal 9.0-12.7 [facility] Comment on above: Order Comment: Speci men Type: BLOOD SPECIMEN Ordering Facility: [facility] Address: [address] [place] [address] Performed By: #### 5 8410-2 #### [facility] CLIA [id number] [address] [place] [address] [place] Platelets (Bld) [#/Vol] 300 10*3/uL Normal 150-400 [facility] Comment on above: Order Comment: Speci men Type: BLOOD SPECIMEN Ordering Facility: [facility] Address: [address] [place] [address] Performed By: #### 5 8410-2 #### [facility] CLIA [id number] [address] [place] [address] [place] RBC (Bld) [#/Vol] 4.13 10*6/uL Low 4.20-6.00 [facility] Comment on above: Order Comment: Speci men Type: BLOOD SPECIMEN Ordering Facility: [facility] Address: [address] [place] [address] Performed By: #### 5 8410-2 #### [facility] CLIA [id number] [address] [place] [address] [place] WBC (Bld) [#/Vol] 9.71 10*3/uL Normal 3.70-11.00 [facility] Comment on above: Order Comment: Speci men Type: BLOOD SPECIMEN [facility] Address: [address] [facility] [place] [address] Performed By: #### 5 8410-2 #### [facility] CLIA [id number] [address] [place] [address] [place] Prot Ur-mCncon 10-23-2022 Protein (U) [Mass/Vol] 173 mg/dL High 0-20 [facility] Comment on above: Order Comment: Speci men Type: URINE SPECIMEN Ordering Facility: [facility] Address: [address] [place] [address] Performed By: #### 2 888-6 #### [facility] CLIA [id number] [address] [place] [address] [place] Renal function 2000 panelon 10-23-2022 Albumin [Mass/Vol] 3.7 g/dL Low 3.9-4.9 [facility] Comment on above: Order Comment: Speci men Type: BLOOD SPECIMEN Ordering Facility: [facility] Address: [address] [place] [address] Performed By: #### 2 4362-6 #### [facility] CLIA [id number] [address] [place] [address] [place] Anion gap [Moles/Vol] 10 mmol/L Normal 9-18 [facility] Comment on above: Order Comment: Speci men Type: BLOOD SPECIMEN Ordering Facility: [facility] Address: [address] [place] [address] Performed By: #### 2 4362-6 #### [facility] CLIA [id number] [address] [place] [address] [place] Calcium [Mass/Vol] 8.9 mg/dL Normal 8.5-10.2 [facility] Comment on above: Order Comment: Speci men Type: BLOOD SPECIMEN Ordering Facility: [facility] Address: [address] [place] [address] Performed By: #### 2 4362-6 #### [facility] CLIA [id number] [address] [place] [address] [place] Chloride [Moles/Vol] 105 mmol/L Normal 97-105 [facility] Comment on above: Order Comment: Speci men Type: BLOOD SPECIMEN Ordering Facility: [facility] Address: [address] [place] [address] Performed By: #### 2 4362-6 #### [id number] [address] [place] [address] [place] CO2 [Moles/Vol] 25 mmol/L Normal 22-30 [facility] Comment on above: Order Comment: Speci men Type: BLOOD SPECIMEN Ordering Facility: [facility] Address: [address] [place] [address] Performed By: #### 2 4362-6 #### [facility] [id number] [address] [place] [address] [place] Creatinine [Mass/Vol] 0.72 mg/dL Low 0.73-1.22 [facility] Comment on above: Order Comment: Speci men Type: BLOOD SPECIMEN Ordering Facility: [facility] Address: [address] [place] [address] Performed By: #### 2 4362-6 #### [facility] [id number] [address] [place] [address] [place] ESTIMATED GLOMERULAR FILTRATION RATE 127 mL/min/1.73m??? Normal >=60 [facility] Comment on above: Order Comment: Speci men Type: BLOOD SPECIMEN Ordering Facility: [facility] Address: [address] [place] [address] Result Comment: Ruth mated Glomerular Filtration Rate [...] GFR. Performed By: #### 2 4362-6 #### [facility] CLIA [id number] [address] [place] [address] [place] Glucose [Mass/Vol] 139 mg/dL High 74-99 [facility] Comment on above: Order Comment: Jonny robledo Type: BLOOD SPECIMEN Ordering Facility: [facility] Address: [address] [place] [address] Result Comment: The [place] Diabetes Association (ADA) provides guidance for cutoff [...] Standards of Medical Care in Diabetes 2016, [place] [employer]. Diabetes Care. 2016.39(Suppl 1). Performed By: #### 2 4362-6 #### [facility] [id number] [address] [place] [address] [place] Phosphate [Mass/Vol] 2.4 mg/dL Low 2.7-4.8 [facility] Comment on above: Order Comment: Rafaeli men Type: BLOOD SPECIMEN Ordering Facility: [facility] Address: [address] [place] [address] Performed By: #### 2 4362-6 #### [facility] [id number] [address] [place] [address] [place] Potassium [Moles/Vol] 3.8 mmol/L Normal 3.7-5.1 [facility] Comment on above: Order Comment: Jonny robledo Type: BLOOD SPECIMEN Ordering Facility: [facility] Address: [address] [place] [address] Performed By: #### 2 4362-6 #### [facility] CLIA [id number] [address] [place] [address] [place] Sodium [Moles/Vol] 140 mmol/L Normal 136-144 [facility] Comment on above: Order Comment: Speci men Type: BLOOD SPECIMEN Ordering Facility: [facility] Address: [address] [place] [address] Performed By: #### 2 4362-6 #### [facility] CLIA [id number] [address] [place] [address] [place] Urea nitrogen [Mass/Vol] 16 mg/dL Normal 9-24 [facility] Comment on above: Order Comment: Speci men Type: BLOOD SPECIMEN Ordering Facility: [facility] Address: [address] [place] [address] Performed By: #### 2 4362-6 #### [facility] [id number] [address] [place] [address] [place] ANES POSTPROC EVALon 022 ANES POSTPROC EVAL HNO ID: [id number] Author: Lauren Bravo MD Service: ? Author Type: Anesthesiologist Type: Anesthesia Postprocedure Evaluation Filed: 08/27/2022 1:57 PM Note Text: POST ANESTHESIA EVALUATION NOTE : 1995 Procedure Summary Date: 08/27/22 Room / Location: DC OR [facility] PROC / AK OR Anesthesia Start: 1125 [...] August 27, 2022 TIME: 1:57 PM CSN: [id number] [facility] ANES PRE-OPon 08-27-2022 ANES PRE-OP HNO ID: [id number] Author: Lauren Bravo MD Service: ? Author [...] August 27, 2022 TIME: 11:52 AM CSN: [id number] Normal [facility] MRI ABDOMEN WO/W IVCONon MRI ABDOMEN WO/W IVCON * * *Final Report* * * DATE OF EXAM: Aug 27 2022 1:54PM [facility] 0689 - MRI ABDOMEN WO/W IVCON / [...] the liver parenchyma and associated mild hepatomegaly. Head Of Academic Technology: SIMONE Transcribe Date/Time: Aug 28 2022 2:06P Dictated by : JERALD SMART MD This examination was interpreted and the report reviewed and electronically signed by: JERALD SMART MD on Aug 28 2022 2:18PM EST [id number] Normal [facility] ic MRI BRAIN WO/W IVCONon 08-27 MRI BRAIN WO/W IVCON * * *Final Report* * * DATE OF EXAM: Aug 27 2022 1:52PM [facility] 0295 - MRI BRAIN WO/W IVCON / [...] would be helpful to evaluate for stability. Head Of Academic Technology: PSCB Transcribe Date/Time: Aug 28 2022 10:38A Dictated by : STEPHON CORMIER MD This examination was interpreted and the report reviewed and electronically signed by: STEPHON CORMIER MD on Aug 28 2022 11:54AM EST [id number] Normal [facility] ic Complete Blood Counton 01-07 Differential Complete Manual [facility] Erythrocyte distribution width (RBC) [Ratio] 14.2 % 0 - 14.4 % [facility] Hematocrit (Bld) [Volume fraction] 37.0 % Low 41 - 50 % [facility] Hemoglobin (Bld) [Mass/Vol] 11.7 g/dL Low 13.5 - 16.5 g/dl [facility] Immature granulocytes/100 WBC (Bld) 0.7 % [facility] Comment on above: Immature Granulocyte Percent includes promyelocytes, myelocytes, and metamyelocytes. IG% > 1.0 indicates a left shift is present. With automated differentials, bands are included in the neutrophil count and not in the Immature Granulocyte Percent. MCH (RBC) [Entitic mass] 27.5 pg 26 - 34 pg [facility] MCHC 31.6 % 31 - 37 % [facility] MCV (RBC) [Entitic vol] 86.9 fL 80 - 100 fl [facility] Nucleated RBC/100 WBC (Bld) [Ratio] 0 % -1 - 0 % [facility] Platelet mean volume (Bld) [Entitic vol] 9.8 fL [facility] Comment on above: MPV is platelet range and age dependent Platelets (Bld) [#/Vol] 382 10*3/uL [facility] RBC (Bld) [#/Vol] 4.26 10*6/uL Low [facility] WBC (Bld) [#/Vol] 11.1 10*3/uL High [facility] Comprehensive metabolic pane josué 01-07-2022 Albumin [Mass/Vol] 4.1 g/dL 3.5 - 5 g/dL [facility] ALP [Catalytic activity/Vol] 139 U/L High 40 - 129 U/L [facility] ALT [Catalytic activity/Vol] 26 U/L 0 - 46 U/L [facility] AST [Catalytic activity/Vol] 26 U/L 0 - 37 U/L [facility] Bilirubin [Mass/Vol] 0.3 mg/dL [facility] Calcium [Mass/Vol] 9.3 mg/dL 7.6 - 11 mg/dL [facility] Chloride [Moles/Vol] 102 mmol/L 96 - 108 mmol/L [facility] CO2 [Moles/Vol] 22.4 mmol/L 22 - 29 mmol/L [facility] Creatinine [Mass/Vol] 0.87 mg/dL 0.7 - 1.2 mg/dL [facility] Glucose [Mass/Vol] 99 mg/dL 70 - 99 mg/dL [facility] Comment on above: Criteria for Diagnos is of Diabetes: Fasting Specimen (no caloric intake for at least 8 hours): <100 mg/dL Normal 100-125 mg/dL Increased risk for Diabetes >125 mg/dL Diagnostic for Diabetes Random Glucose (any time of day without regard to last meal): > or = 200 mg/dL plus Classic Symptoms of Diabetes Potassium [Moles/Vol] 4.4 mmol/L 3.3 - 5.1 mmol/L [facility] Protein [Mass/Vol] 7.3 g/dL 5.9 - 8.4 g/dL [facility] Sodium [Moles/Vol] 138 mmol/L 133 - 145 mmol/L [facility] Urea nitrogen [Mass/Vol] 18 mg/dL 4 - 19 mg/dL [facility] Lipid panelon 01-07-2022 Cholesterol [Mass/Vol] 213 mg/dL High 0 - 199 mg/dL [facility] Comment on above: Acceptable (mg/dL): <200 Borderline-High (mg/dL): 200-239 High (mg/dL): > or = 240 Recommendations of the NCEP Adult Treatment Panel for the risk cut-off thresholds for the [place]. Cholesterol in HDL [Mass/Vol] 38 mg/dL [facility] Comment on above: Low (mg/dL): <40 Borderline-Low (mg/dL): 40 60 Acceptable (mg/dL): >60 Cholesterol in LDL [Mass/Vol] 128 mg/dL 0 - 129 mg/dL [facility] Non-HDL Cholesterol 176 mg/dL High 0 - 129 mg/dL [facility] Triglyceride [Mass/Vol] 239 mg/dL High 0 - 149 mg/dL [facility] Comment on above: A repeating fasting triglyceride should be measured in 2-4 weeks if a non-fasting level is >200 mg/dL. Manual Differentialon 2021 % Metamyelocytes 0 % 0 - 0 % [facility] % Monocytes 6 % 3 - 6 % [facility] % Myelocytes 0 % 0 - 0 % [facility] % Promyelocytes 0 % 0 - 0 % [facility] Absolute Neutrophil No. 6.2 [facility] Band Neutrophil 0 % Low 5 - 11 % [facility] Cell Morphology Normal [facility] Lymphocytes 38 % 24 - 44 % [facility] Segmented Neutrophils 56 % 35 - 66 % [facility] No Panel Informationon 01-07 Interpretation and review of laboratory results Abnormal [facility] Release to patient->[facility] Interpretation and review of laboratory results Abnormal [facility] Release to patient->[facility] Valproic Acidon 01-07-2022 Valproic Acid 71 ug/mL 50 - 100 ug/mL [facility] Vital Signs Date Time Vital Sign Value Performing Clinician Faci lity 06-09-2024 09:04-0400 Body height 175.3 cm Haritha ARANA PRODUCTION LINE MECHANIC Work Phone: [facility] 06-09-2024 09:04-0400 Body mass index (BMI) [Ratio] 33.6 kg/m2 Haritha SANTOS Work Phone: [facility] 06-09-2024 09:04-0400 Body temperature 97.2 [degF] Haritha Gregg DRYWALL APPLICATOR-C PRODUCTION LINE MECHANIC Work Phone: [employer] 06-09-2024 09:04-0400 Body weight 103.19 kg Haritha Garyiv DRYWALL APPLICATOR-C PRODUCTION LINE MECHANIC Work Phone: [employer] 06-09-2024 09:04-0400 Diastolic blood pressure 67 mm[Hg] Haritha Garymera DRYWALL APPLICATOR-COORDINATE MEASURING EQUIPMENT OPERATOR Work Phone: [employer] 06-09-2024 09:04-0400 Heart rate 66 /min Haritha Garyiv DRYWALL APPLICATOR-C PRODUCTION LINE MECHANIC Work Phone: [employer] 06-09-2024 09:04-0400 Respiratory rate 16 /min Haritha Abdirahmaniv DRYWALL APPLICATOR-C PRODUCTION LINE MECHANIC Work Phone: [employer] 06-09-2024 09:04-0400 SaO2% (BldA) [Mass fraction] 100 % Haritha Abdirahmaniv DRYWALL APPLICATOR-COORDINATE MEASURING EQUIPMENT OPERATOR Work Phone: [employer] 06-09-2024 09:04-0400 Systolic blood pressure 130 mm[Hg] Haritha Garymera AP RN-COORDINATE MEASURING EQUIPMENT OPERATOR Work Phone: [employer] Encounters Encounter Date Encounter Type Care Provider Facility Start: 06-09-2024 End: 06-09-2024 Office consultation new/estab patient 40 min Haritha Garymera DRYWALL APPLICATOR-COORDINATE MEASURING EQUIPMENT OPERATOR Work Phone: [facility] Comment on above: Pre-op testing (Prim ruth Dx); Primary hypertension; Body mass index (BMI) 33.0-33.9, adult Start: 06-09-2024 End: 06-09-2024 Patient encounter status Haritha Garymera DRYWALL APPLICATOR-COORDINATE MEASURING EQUIPMENT OPERATOR Work Phone: [employer] Work Phone: Start: 06-09-2024 End: 06-09-2024 ambulatory DARREL GOMEZLAND Facility:[facility] Start: 06-09-2024 Encounter for other preprocedural examination HARITHA MARYSOL [facility] [employer] [facility] Start: 05-16-2024 End: 05-16-2024 Admission to same day surgery center Hussein Chua DDS Work Phone: [facility] Start: 04-28-2024 ambulatory DARREL BLACKMON Facilit y:[facility] Start: 04-28-2024 End: 04-28-2024 Patient encounter procedure Darrel Blackmon DDS Work Phone: [facility] Comment on above: Neurocognitive disor negra (Primary Dx); Aggression Start: 07-07-2023 End: 07-08-2023 ambulatory [facility] Start: 07-07-2023 End: 07-07-2023 Subsequent hospital visit by physician Tammi Mcqueen MD Work Phone: [facility] 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; 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, not intractable Start: 01-06-2023 End: 01-06-2023 ambulatory [facility] Start: 10-23-2022 End: 10-24-2022 ambulatory GLADYS BUSH Facility:[facility] Start: 08-27-2022 End: 08-27-2022 ambulatory ESHA DIETZ Facility:[facility] Start: 08-27-2022 End: 08-27-2022 Subsequent hospital visit by physician Mri 1 [facility] (I-Stat/Lg Bore/3t) RADIO MRI [facility] 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 Start: 01-07-2022 End: 01-07-2022 Subsequent hospital visit by physician Tammi Mcqueen MD Work Phone: [facility] 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 Start: 04-21-2019 Preprocedural examin ation done Tammi Mcqueen MD Work Phone: [facility] Procedures Date Procedure Procedure Detail Performing Clinician Start: 06-09-2024 Blood count complete automated Haritha Gregg DRYWALL APPLICATOR-COORDINATE MEASURING EQUIPMENT OPERATOR Work Phone: Start: 07-07-2023 COMPLETE BLOOD COUNT [...] 06-09-2025 Creatinine measurement Basic Metabol ic Panel [facility] Start: 07-07-2024 Antipsychotic Glucose/HbA1c Annual Antipsychotic Glucose/HbA1c Annual [facility] Start: 07-07-2024 Creatinine measurement Basic Metabol ic Panel [facility] Start: 06-29-2024 End: 06-29-2024 Patient encounter procedure 06/29/2024 11:40 AM EDT Procedure Visit [facility] [address] [place] [address] Shirin Hernandez, [address] [place] [address] [facility] Start: 06-09-2024 End: 06-09-2024 Patient encounter procedure 06/09/2024 9:00 AM EDT Office Visit [facility] Pre-Admission Testing [address] [place] [address] [facility]-Admission Testing Start: 05-30-2024 Influenza vaccination Influenza Vacc ine (#1) [facility] Start: 04-30-2024 Influenza vaccination Influenza Vacc ine (#1) [facility] Start: 04-30-2023 FLU (#1) FLU (#1) [facility] Start: 01-07-2023 Antipsychotic Glucose/HbA1c Annual Antipsychotic Glucose/HbA1c Annual [facility] Start: 01-07-2023 Antipsychotic Lipid Panel Annual Antipsychotic Lipid Panel Annual [facility] Start: 08-30-2022 DEPRESSION ASSESSMENT DEPRESSION ASS ESSMENT [facility] Start: 04-30-2022 FLU (Season Ended) FLU (Season Ended ) [facility] Start: 04-30-2022 Influenza vaccination INFLUENZA (#1) [facility] Start: 2020 HPV Vaccine (optiona l start 27-45 years) HPV Vaccine (optional start 27-45 years) [facility] Start: 10-06-2019 AIMS 6 Month Check AIMS 6 Month Chec k [facility] Start: 2012 Hepatitis A (HAV) Vaccine (optional start 19+ years) Hepatitis A (HAV) Vaccine (optional start 19+ years) [facility] Start: 2012 Hepatitis B vaccination Hepati tis B (HBV) Vaccine (1 of 3 - 19+ 3-dose series) [facility] Start: 2012 Shingles (RZV) Vacci ne (1 of 2) Shingles (RZV) Vaccine (1 of 2) [facility] Start: 2012 SHINGRIX VACCINE (1 of 2) SHINGRIX VACCINE (1 of 2) [facility] Start: 2012 Urine microalbumin profile DTAP,TDAP,TD (1 - Tdap) [facility] Start: 2011 HEPATITIS C SCREENING HEPATITIS C SC REENING [facility] Start: 2011 Hepatitis C screening Hepatitis C An tibody [facility] Start: 2011 HIV SCREENING HIV SCREENING [facility] Start: 2011 Tdap Booster Tdap Booster [facility] Start: 2009 MenB (1 of 2 - MenB 2-Dose Series Bexsero) MenB (1 of 2 - MenB 2-Dose Series Bexsero) [facility] Start: 2009 MenB (1 of 2 - MenB 2-Dose Series) MenB (1 of 2 - MenB 2-Dose Series) [facility] Start: 2008 HIV screening HIV Test [facility] Start: 2005 COVID-19 (1) COVID-19 (1) [facility] Start: 2000 Tetanus Diphtheria a nd Pertussis Vaccines (1 - Tdap) Tetanus Diphtheria and Pertussis Vaccines (1 - Tdap) [facility] Start: 1999 PNEUMOCOCCAL (1 - PCV) PNEUMOCOCCAL (1 - PCV) [facility] Start: 1999 Pneumococcal vaccination Pneumococcal Vaccine(s) (1 of 2 - PCV) [facility] Start: 1998 COVID-19 Vaccine (#1) COVID-19 Vacci ne (#1) [facility] Start: 1994 MMR (1 of 1 - Standa rd series) MMR (1 of 1 - Standard series) [facility] Start: 1994 Varicella (1 of 2 - 2-dose childhood series) Varicella (1 of 2 - 2-dose childhood series) [facility] Start: 04-01-1994 COVID-19 (#1) COVID-19 (#1) [facility] Start: 04-01-1994 COVID-19 VACCINE (#1) COVID-19 VACCI NE (#1) [facility] Start: 1993 HEPATITIS B (1 of 3 - 3-dose series) HEPATITIS B (1 of 3 - 3-dose series) [facility] DENTAL RESTORATIONS DENTAL RUI RATIONS Routine scheduled Caries [facility] Everolimus, Blood Everolimus, Bl ood Lab Routine 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 Work Phone: End: 01-07-2022 Oxcarbazepine/Trileptal 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 1993 Unknown [id number] [id number] 1993 Unknown [id number] 2.16. [id number] 1993 Unknown [id number] 2.16. [id number] 1993 Unknown [id number] 2.16. [id number] 1993 Unknown [id number] 2.16. [id number] Social History Date Type Detail Facility Start: 09-06-2019 End: 01-07-2022 Tobacco smoking status NHIS Never smoked tobacco [facility] Start: 01-07-2022 End: 06-09-2024 Cigarette pack-years [facility] Start: 09-06-2019 End: 01-07-2022 Tobacco use and exposure Smokeless tobacco non-user [facility] Start: 01-07-2022 End: 07-07-2023 Alcohol intake Not Asked [facility] Start: 01-07-2022 Tobacco Comment NO SMOKERS IN THE HO [facility] Start: 1995 Sex Assigned At Not on file A [facility] Start: 12-28-2021 End: 01-07-2022 Exposure to SARS-CoV-2 (event) Not sure [facility] Tobacco smoking stat us ORIS Tobacco smoking consumption unknown [facility] Start: 07-07-2023 End: 06-09-2024 Tobacco use panel [facility] Start: 06-09-2024 Alcoholic beverage intake Ex-drinker (finding) [facility] Goals Date Patient Goal Desired Activity /State Personal health goal Clinical Notes 08-26-2022 to 06-09-2024 Haritha Gregg APRN-COORDINATE MEASURING EQUIPMENT OPERATOR - 06/09/2024 9:15 AM EDTMHaritha rosales DRYWALL APPLICATOR-COORDINATE MEASURING EQUIPMENT OPERATOR - 06/09/2024 9:15 AM EDTPatient Darrel Ribeiro, DDS - 04/28/2024 11:02 AM EDT Note Date & Type Note Facility 06-09-2024 History of Present illness Narrative Images from the original note were not included. Pre-Admission Testing Consultation [place], [id number] 28 year old Male 06/09/2024 Consult placed [...] Script sent. MRI abdomen and kidneys At [facility] with sedation 1 yr 5 Continue [...] 12:00 PM 06/09/2024 documented in this encounter [facility] 06-09-2024 History of Present illness Narrative Images from the original note were not included. Pre-Admission Testing Consultation Gal [place], [id number] 28 year old Male 06/12/2024 Consult placed to [facility] by Dr. Hernandez due to significant [...] TOOTH #1,16,17,30,31,32; Surgeon: Dennis Salmon DDS; Location: [facility] [place]; Service: Oral Past Medical History and Review [...] Script sent. MRI abdomen and kidneys At [facility] with sedation 1 yr 5 Continue [...] 3:04 PM 06/12/2024 documented in this encounter [facility] 06-09-2024 Note Pre-Admission Testin g Consultation Gal [place], [id number] 28 year old Male 06/12/2024 Consult placed [...] 06/09/2024 9: (more content not included)... [facility] [employer] [facility] 06-09-2024 Instructions Marysol Haritha, DRYWALL APPLICATOR-COORDINATE MEASURING EQUIPMENT OPERATOR - 06/09/2024 9:01 AM EDT On the [...] for pain. Please hold all Vitamin E, [place] 3, fish oil and herbal supplements for [...] otherwise contacted. ? Expect a call from [employer] one business day prior to surgery for [...] your Preparing for Your Surgery/Procedure booklet or [email or web address] if you have questions. Contact the Pre-Admission Testing department at [phone] or your surgeon's office with any questions [...] stay with you after surgery. [facility] if you need [facility] assistance or have concerns about going home [phone]. ? SLEEP APNEA PATIENTS: Bring your sleep apnea machine and mask. ? PLEASE BE ON TIME. A late arrival may result in the cancellation/ delay of your surgery. Thank you [facility] choosing [facility]; it is our pleasure to care for you documented in this encounter [facility] 04-28-2024 History of Present illness Narrative ----- Sunday, April 28, 2024 at 11:17:47 AM ----- ----- Provider: [id number] Blackmon DDS -- Clinic: [place] [address] ----- OR EVALUATION Patient presents for evaluation [...] in-office IV sedation documented in this encounter [facility] 08-27-2022 Note HNO ID: [id number] Author: Liana Biswas APRN.INDUSTRIAL CHEMISTRY TEACHER Service: Nursing Author Type: Nurse Communication Specialist Type: Anesthesia Procedure Notes Filed: 08/27/2022 11:44 [...] attempts at approach: 1 SIGNATURE: Liana Biswas APRN.INDUSTRIAL CHEMISTRY TEACHER PATIENT NAME: Gal Madison DATE: August 27, 2022 TIME: 11:44 AM CSN: [id number] [facility] 08-27-2022 Note HNO ID: [id number] Author: RT Adrian(R) Service: Radiology Author Type: [...] PERIPHERAL IV DATA: Inpatient - refer to [facility] documentation RADIOLOGY DEPARTMENT: MR; Exam(s) Completed: Body: Renal Head: Routine Brain SIGNATURE: Elvia SierraRT diane(R) PATIENT NAME: Gal Madison DATE: August 27, 2022 TIME: 12:35 PM [facility] 08-27-2022 Note HNO ID: [id number] Author: АНДРЕЙ Oakes) Service: Radiology Author Type: Technologist Type: Progress Notes Filed: 08/28/2022 6:33 AM Note Text: Patient's mother refused anesthesia as ordered for MRI scans. Best images possible d/t patient motion/condition. [facility] 08-27-2022 History of Present illness Narrative Radiology [...] PERIPHERAL IV DATA: Inpatient - refer to [facility] documentation RADIOLOGY DEPARTMENT: MR; Exam(s) Completed: Body: Renal Head: Routine Brain SIGNATURE: Elvia RT Janet(R) PATIENT NAME: Gal Madison DATE: August 27, 2022 TIME: 12:35 PM Patient's mother refused anesthesia as ordered for MRI scans. Best images possible d/t patient motion/condition. documented in this encounter [facility] 08-26-2022 Note HNO ID: [id number] Author: Jem Hines RN Service: Nursing Author Type: Registered Nurse Type: Nursing Progress Note Filed: 08/26/2022 11:17 AM Note Text: Mother bringing list of meds to presurg tomorrow. Didn't have time to go over them at present. 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0-33.9, adult documented in this encounter [facility] Summary Purpose Family History No Family History Records FoundNo Family History Records FoundNo Family History Records FoundNo Family History Records Found Advance Directives No Advanced Directives Records FoundNo Advanced Directives Records FoundNo Advanced Directives Records FoundNo Advanced Directives Records Found Reason for Referral Specialty Diagnoses / Procedures Referred By Contac t Referred To Contact Anesthesiology Diagnoses Neurocognitive disorder Aggression Darrel Blackmon, DDS [address] [place] [address] [facility]MISSION [facility] [address] [id number] Referral ID Status Reason Start Date Expiration Date V isits Requested Visits Authorized [id number] Authorized 04/28/2024 04/28/2025 1 1 Scheduling Instructions Your surgical team will reach out to you to schedule a pre-admission testing appointment. Question Answer Reason for consult? Recommended PAT Risk Score Comments Patient requires IV sedation or general anesthesia for comprehensive dental treatment. Specialty Diagnoses / Procedures Referred By Contac t Referred To Contact Anesthesiology Diagnoses Caries Yazan Pedraza, DDS [address] [place] [id number] [facility]MISSION [facility] [address] [id number] Referral ID Status Reason Start Date Expiration Date V isits Requested Visits Authorized [id number] Authorized 05/16/2024 05/16/2025 1 1 Additional Source Comments Care Teams (unrecognized sec tion and content) Blade Boner Relationship Specialty Start Date End Date Irma Pittman MD [address] [place], [place] [id number] PCP - General 04/21/19 Clifton Wayne MD [address] [facility] [address] [place], [place] [id number] Attending Physician Neurology 10/03/13 Blade Boner Relationship Specialty Start Date End Date Ravinder Langford PCP - General 06/23/02 Blade Boner Relationship Specialty Start Date End Date Irma Pittman MD [address] [place], [place] [id number] PCP - General 04/21/19 Clifton Wayne MD [address] [facility] [address] [place], [place] [id number] Attending Provider Neurology 10/03/13 (unrecognized sect ion and content) No Status Records FoundNo Status Records FoundNo Status Records FoundNo Status Records Found INFORMATION SOURCE (unrecogn ized section and content) DATE CREATED AUTHOR 08/29/2022 [facility] DATE CREATED AUTHOR AUTHOR'S ORGANIZ ATION 10/24/2022 [facility] DATE CREATED AUTHOR AUTHOR'S ORGANIZ ATION 07/14/2023 [facility] DATE CREATED AUTHOR AUTHOR'S ORGANIZ ATION 06/14/2024 [facility] Source Comments (unrecognize d section and content) In the event this informatio n is protected by the Federal Confidentiality of Alcohol and Drug Abuse Patient Records regulations: The Federal rules restrict any use of the information to criminally investigate or prosecute any alcohol or drug abuse patient.[facility] Reason for Visit (unrecogniz ed section and content) Specialty Diagnoses / Procedures Referred By Jason valle Referred To Contact Anesthesiology Diagnoses Neurocognitive disorder Aggression Darrel Blackmon, DDS [address] [place] [address] [facility] [address] [place] [address] Referral ID Status Reason Start Date Expiration Date Visits Re quested Visits Authorized [id number] Closed 04/28/2024 04/28/2025 1 1 FOR RECORDS [...] BE BASED ON THE PRIMARY CLINICAL RECORDS. [facility] [email or web address] [facility]. provides no warranty or guarantee of the accuracy or completeness of information in this document.
--- OUTSIDE RECORDS SUMMARY | 2024-06-26 12:48 | XMS RPT_ITS | CCD ---
Author Organization [facility] Care Team Providers Care Computer Publisher Name Role Phone Tone ARRINGTON, Clif[place] Unavailable [phone] Irma Pittman MD Primary Care Provider GLADYS BUSH Referring UnavailRAVINDER Whiting Primary Care Unavailable TALMAGEESHA Referring Unavailable TALESHA US Attending Unavailable TALESHA US Admitting Unavailable RAVINDER LANGFORD Primary Care Unavailable Ravinder Langford Primary Care Provider Unavail able GLADYS BUSH Referring UnavailRAVINDER Whiting Primary Care Unavailable Tone ARRINGTON, Clif[place] Unavailable [phone] Irma Pittman MD Primary Care Provider IRMA [...] gap [Moles/Vol] 15 mmol/L Normal 10-20 [facility] Comment on above: Performed By: #### C H8 #### [facility] [address], [place], Calcium [Mass/Vol] 8.9 mg/dL Normal 8.6-10.3 The [facility] Comment on above: Performed By: #### C H8 #### [facility] [address], [place], Chloride [Moles/Vol] 106 mmol/L Normal 98-107 The [facility] Comment on above: Performed By: #### C H8 #### [facility] [address], [place], CO2 [Moles/Vol] 26 mmol/L Normal 21-31 The [facility] Comment on above: Performed By: #### C H8 #### [facility] [address], [place], Creatinine [Mass/Vol] 0.75 mg/dL Normal 0.70-1.30 The [facility] Comment on above: Performed By: #### C H8 #### [facility] [address], [place], ESTIMATED GFR (CKD-EPI) 125 mL/min/1.73sqm Normal >=[address] [facility] Comment on above: Result Comment: [...] Inclusion of Race in Diagnosing Kidney Disease. [place] Journal of Kidney Diseases 2021;79(2):268-88.e1. 2. N Engl J Med 1 Vol. 385 Issue 19 Pages 2148-5915 Performed By: #### C H8 #### [facility] [address], [place], Glucose [Mass/Vol] 90 mg/dL Normal 74-109 The [facility] Comment on above: Performed By: #### C H8 #### S [facility] [address] [place] [address], Potassium [Moles/Vol] 4.5 mmol/L Normal 3.5-5.0 The [facility] Comment on above: Performed By: #### C H8 #### [facility] [address], [place], Sodium [Moles/Vol] 142 mmol/L Normal 136-145 The [facility] Comment on above: Performed By: #### C H8 #### [facility] [address], [place], Urea nitrogen [Mass/Vol] 18 mg/dL Normal 7-25 [facility] Comment on above: Performed By: #### C H8 #### [facility] [address], [place], Basic metabolic 2000 panelon 06-09-2024 Anion gap [Moles/Vol] 15 mmol/L 10 - 20 [facility] Calcium [Mass/Vol] 8.9 mg/dL 8.6 - 10. 3 mg/dL [facility] Chloride [Moles/Vol] 106 mmol/L 98 - 107 mmol/L [facility] CO2 [Moles/Vol] 26 mmol/L 21 - 31 mmol/L [facility] Creatinine [Mass/Vol] 0.75 mg/dL 0.70 - 1.30 mg/dL [facility] GFR/1.73 sq M.predicted CKD-EPI (S/P/Bld) [Vol rate/Area] 125 - PINF [facility] Comment on above: 2020 CKD EPI [...] Inclusion of Race in Diagnosing Kidney Disease. [place] Journal of Kidney Diseases 2021;79(2):268-88.e1. 2. N Engl J Med 2020 Vol. 385 Issue 19 Pages 1394-8848 Glucose [Mass/Vol] 90 mg/dL 74 - 109 mg/dL [facility] Interpretation and review of laboratory results Normal [facility] Potassium [Moles/Vol] 4.5 mmol/L 3.5 - 5.0 mmol/L [facility] Sodium [Moles/Vol] 142 mmol/L 136 - 145 mmol/L [facility] Urea nitrogen [Mass/Vol] 18 mg/dL 7 - 25 mg/dL [facility] CBC panel Auto (Bld)on 06-09 Erythrocyte distribution width (RBC) [Ratio] 15.7 % High 11.5 - 14.5 % [facility] Hematocrit (Bld) [Volume fraction] 32.6 % Low 41.0 - 53.0 % [facility] Hemoglobin (Bld) [Mass/Vol] 10.7 g/dL Low 13.9 - 16.3 g/dL [facility] Interpretation and review of laboratory results Abnormal [facility] MCH (RBC) [Entitic mass] 27.9 pg 26.0 - 34.0 pg [facility] MCHC (RBC) [Mass/Vol] 32.9 g/dL 32.0 - 35.9 g/dL [facility] MCV (RBC) [Entitic vol] 85 fL 80 - 100 fL [facility] Platelet mean volume (Bld) [Entitic vol] 7.8 fL 7.5 - 11.2 fL [facility] Platelets (Bld) [#/Vol] 307 10*3/uL 150 - 400 K/uL [facility] RBC (Bld) [#/Vol] 3.84 10*6/uL Low [facility] WBC (Bld) [#/Vol] 9.2 10*3/uL 4.5 - 11.5 K/uL [facility] COMPLETE BLOOD COUNTon 06-09 Erythrocyte distribution width (RBC) [Ratio] 15.7 % High 11.5-14.5 The [facility] Comment on above: Performed By: #### C BC #### [facility] [address] [place] [address], Hematocrit (Bld) [Volume fraction] 32.6 % Low 41.0-53.0 The [facility] Comment on above: Performed By: #### C BC #### [facility] [address], [place], Hemoglobin (Bld) [Mass/Vol] 10.7 g/dL Low 13.9-16.3 [facility] Comment on above: Performed By: #### C BC #### [facility] [address], [place], MCH (RBC) [Entitic mass] 27.9 pg Normal 26.0-34.0 [facility] Comment on above: Performed By: #### C BC #### [facility] [address], [place], MCHC (RBC) [Mass/Vol] 32.9 g/dL Normal 32.0-35.9 [facility] Comment on above: Performed By: #### C BC #### [facility] [address], [place], MCV (RBC) [Entitic vol] 85 fL Normal 80-100 The [facility] Comment on above: Performed By: #### C BC #### [facility] [address], [place], Platelet mean volume (Bld) [Entitic vol] 7.8 fL Normal 7.5-11.2 [facility] Comment on above: Performed By: #### C BC #### [facility] [address], [place], Platelets (Bld) [#/Vol] 307 10*3/uL Normal 150-400 [facility] Comment on above: Performed By: #### C BC #### [facility] [address], [place], RBC (Bld) [#/Vol] 3.84 10*6/uL Low 4.50-5.90 The [facility] Comment on above: Performed By: #### C BC #### [facility] [address], [place], WBC (Bld) [#/Vol] 9.2 10*3/uL Normal 4.5-11.5 The [facility] Comment on above: Performed By: #### C BC #### [facility] [address], [place], Patient Instructionson 06-09 Appliance Technician Authentication Interface Message Text On the morning [...] for pain. Please hold all Vitamin E, [place] 3, fish oil and herbal supplements for [...] otherwise contacted. ? Expect a call from [employer] one business day prior to surgery for [...] your Preparing for Your Surgery/Procedure booklet or [email or web address] if you have questions. Contact the Pre-Admission Testing department at [phone] or your surgeon's office with any questions [...] a car, cab, shared ride service, or [employer]. You will not be allowed to drive yourself home or travel home alone. Your surgery may be cancelled if you do not have a ride. A responsible adult must stay with you after surgery. Please call [employer] if you need transportation assistance or have concerns about going home [phone]. ? SLEEP APNEA PATIENTS: Bring your sleep apnea machine and mask. ? PLEASE BE ON TIME. A late arrival may result in the cancellation/ delay of your surgery. Thank you for choosing [employer]; it is our pleasure to care for you Normal [facility] Progress Noteson 05-15-2024 Appliance Technician Authentication Interface Message Text Parent/guardian/patie nt was contacted for PAT AND IV Sedation scheduled -- confirmed information with patient, also informed mom importance of going to PAT appointment -- if missed, IV Sedation will be cancelled, and you will be placed back on wait list 06/29/2024----- Wednesday, May 15, 2024 at 2:05:14 PM ----- ----- Provider: THOUSTONMelanie [facility] -- Clinic: [place] ----- Normal [facility] Progress Noteson 04-28-2024 Appliance Technician Authentication Interface Message Text ----- Sunday, April 28, 2024 at 11:17:47 AM ----- ----- Provider: [id number] Blackmon DDS -- Clinic: [place] [address] ----- OR EVALUATION Patient presents for evaluation [...] OR or in-office IV sedation Normal The [employer] [facility] Everolimus, Bloodon 07-09-20 Everolimus, Blood 7.0 ng/mL Normal 3-8 ng/mL [facility] Comment on above: Order Comment: Relea se to patient->Automatic 61497&Blood Result Comment: ADDITIONAL INFORMATION Target steady-state trough concentrations vary depending on the type of transplant, concomitant immunosuppression, clinical/institutional protocols, and time post-transplant. Results should be interpreted in conjunction with this clinical information and any physical signs/symptoms of rejection/toxicity. Testing performed by Liquid Chromatography-Tandem Mass Spectrometry (LC-MS/MS). This test was developed and its performance characteristics determined by [facility] in a manner consistent with CLIA requirements. This test has not been cleared or approved by the U.S. Food and Drug Administration. Test Performed by: [place] [address] Want Ad Clerk: Jerardo Marsh M.D. Ph.D.; CLIA# [id number] Performed By: #### E VERB #### [place] [id number] Oxcarbazepine/Trileptalon Oxcarbazepine/Trile ptal 21 mcg/mL Normal 10 - [address] [facility] Comment on above: Order Comment: Relea se to patient->Automatic 26634&Blood Result Comment: ADDITIONAL INFORMATION This test was developed and its performance characteristics determined by [facility] in a manner consistent with CLIA requirements. This test has not been cleared or approved by the U.S. Food and Drug Administration. Test Performed by: [place] [address] Want Ad Clerk: Jerardo Marsh M.D. Ph.D.; CLIA# [id number] Performed By: #### O XCAR #### [address] [address] Comp Metabolic Panelon 07-07 Bili,Total <0.2 Normal [facility] Comment on above: Order Comment: Relea se to patient->Automatic 73830&Blood Performed By: #### C MP #### [address] [address] Albumin [Mass/Vol] 4.1 g/dL Normal 3.5-5.[address] [facility] Comment on above: Order Comment: Relea se to patient->Automatic 68872&Blood Performed By: #### C MP #### [place] [address] [place] [address] ALP [Catalytic activity/Vol] 117 U/L Normal 40-[address] [facility] Comment on above: Order Comment: Relea se to patient->Automatic 48202&Blood Performed By: #### C MP #### [place] [address] [place] [address] ALT [Catalytic activity/Vol] 50 U/L High 0-[address] [facility] Comment on above: Order Comment: Relea se to patient->Automatic 88280&Blood Performed By: #### C MP #### [address] [address] AST [Catalytic activity/Vol] 39 U/L High 0-[address] [facility] Comment on above: Order Comment: Relea se to patient->Automatic 10024&Blood Performed By: #### C MP #### [address] [address] Calcium [Mass/Vol] 9.2 mg/dL Normal 7.6-11.[address] [facility] Comment on above: Order Comment: Relea se to patient->Automatic 05180&Blood Performed By: #### C MP #### [address] [address] CO2 [Moles/Vol] 23.9 mmol/L Normal 22.0-29.0 [facility] Comment on above: Order Comment: Relea se to patient->Automatic 18295&Blood Performed By: #### C MP #### [address] [address] Creatinine [Mass/Vol] 0.81 mg/dL Normal 0.70-1.[address] [facility] Comment on above: Order Comment: Relea se to patient->Automatic 66876&Blood Performed By: #### C MP #### [address] [address] Glucose [Mass/Vol] 98 mg/dL Normal 70-[address] [facility] Comment on above: Order Comment: Relea se to patient->Automatic 12661&Blood Result Comment: Crit eria for Diagnosis of Diabetes: Fasting Specimen (no caloric intake for at least 8 hours): <100 mg/dL Normal 100-125 mg/dL Increased risk for Diabetes >125 mg/dL Diagnostic for Diabetes Random Glucose (any time of day without regard to last meal): > or = 200 mg/dL plus Classic Symptoms of Diabetes Performed By: #### C MP #### [address] [address] Protein [Mass/Vol] 7.2 g/dL Normal 5.9-8.[address] [facility] Comment on above: Order Comment: Relea se to patient->Automatic 45448&Blood Performed By: #### C MP #### [address] [address] Urea nitrogen [Mass/Vol] 15 mg/dL Normal 4-[address] [facility] Comment on above: Order Comment: Relea se to patient->Automatic 99006&Blood Performed By: #### C MP #### [address] [address] Chloride [Moles/Vol] 105 mmol/L Normal 96-[address] [facility] Comment on above: Order Comment: Relea se to patient->Automatic 28254&Blood Performed By: #### C MP #### [address] [address] Potassium [Moles/Vol] 4.0 mmol/L Normal 3.3-5.[address] [facility] Comment on above: Order Comment: Relea se to patient->Automatic 89182&Blood Performed By: #### C MP #### [facility] [place] [address] [place] [address] Sodium [Moles/Vol] 141 mmol/L Normal 133-[address] [facility] Comment on above: Order Comment: Relea se to patient->Automatic 52842&Blood Performed By: #### C MP #### [address] [address] Complete Blood Counton 07-07 Differential Complete Automated Normal [facility] Comment on above: Performed By: #### C BC #### [address] [address] Basophils/100 WBC (Bld) 0.60 % Normal 0.00-1.[address] [facility] Comment on above: Performed By: #### C BC #### [address] [address] Eosinophils/100 WBC (Bld) 0.40 % Normal 0.00-3.[address] [facility] Comment on above: Performed By: #### C BC #### [address] [address] Erythrocyte distribution width (RBC) [Ratio] 14.4 % Normal 0.0-14.[address] [facility] Comment on above: Performed By: #### C BC #### [address] [address] Hematocrit (Bld) [Volume fraction] 37.7 % Low 41.0-50.0 [facility] Comment on above: Performed By: #### C BC #### [address] [address] Hemoglobin (Bld) [Mass/Vol] 11.9 g/dL Low 13.5-16.[address] [facility] Comment on above: Performed By: #### C BC #### [address] [place] [id number] Immature granulocytes/100 WBC (Bld) 0.90 % Normal [facility] Comment on above: Result Comment: Sofiya ture Granulocyte Percent includes promyelocytes, myelocytes, and metamyelocytes. IG% > 1.0 indicates a left shift is present. With automated differentials, bands are included in the neutrophil count and not in the Immature Granulocyte Percent. Performed By: #### C BC #### [address] [address] Lymphocytes/100 WBC (Bld) 25.6 % Normal 24.0-44.[address] [facility] Comment on above: Performed By: #### C BC #### [address] [address] MCH (RBC) [Entitic mass] 27.2 pg Normal 26.0-34.[address] [facility] Comment on above: Performed By: #### C BC #### [address] [address] MCHC 31.6 % Normal 31.0-37.0 [facility] Comment on above: Performed By: #### C BC #### [address] [address] MCV (RBC) [Entitic vol] 86.3 fL Normal 80.0-100.[address] [facility] Comment on above: Performed By: #### C BC #### [address] [address] Monocytes/100 WBC (Bld) 7.20 % High 3.00-6.[address] [facility] Comment on above: Performed By: #### C BC #### [address] [id number] Neutrophils (Bld) [#/Vol] 7.4 10*3/uL Normal 1.8-7.[address] [facility] Comment on above: Performed By: #### C BC #### [address] [address] Neutrophils/100 WBC (Bld) 65.3 % Normal 35.0-66.[address] [facility] Comment on above: Performed By: #### C BC #### [address] [address] Nucleated RBC/100 WBC (Bld) [Ratio] 0.0 % Normal -1.0-0.0 [facility] Comment on above: Performed By: #### C BC #### [address] [address] Platelet mean volume (Bld) [Entitic vol] 9.[address] [facility] Comment on above: Result Comment: MPV is platelet range and age dependent Performed By: #### C BC #### [address] [address] Platelets (Bld) [#/Vol] 329 10*3/uL Normal 150-[address] [facility] Comment on above: Performed By: #### C BC #### [address] [address] RBC 4.37 10E12/L Low 4.50-5.50 [facility] Comment on above: Performed By: #### C BC #### [address] [address] WBC (Bld) [#/Vol] 11.4 10*3/uL High 4.5-11.[address] [facility] Comment on above: Performed By: #### C BC #### [address] [address] Complete Blood Count with Di fferentialon 07-07-2023 Basophils/100 WBC (Bld) 0.60 % 0.00 - 1.00 % [facility] Differential Complete Automated [facility] Eosinophils/100 WBC (Bld) 0.40 % 0.00 - 3.00 % [facility] Erythrocyte distribution width (RBC) [Ratio] 14.4 % 0.0 - 14.4 % [facility] Hematocrit (Bld) [Volume fraction] 37.7 % Low 41.0 - 50.0 % [facility] Hemoglobin (Bld) [Mass/Vol] 11.9 g/dL Low 13.5 - 16.5 g/dl [facility] Immature granulocytes/100 WBC (Bld) 0.90 % [facility] Comment on above: Immature Granulocyte Percent includes promyelocytes, myelocytes, and metamyelocytes. IG% > 1.0 indicates a left shift is present. With automated differentials, bands are included in the neutrophil count and not in the Immature Granulocyte Percent. Interpretation and review of laboratory results Abnormal [facility] Lymphocytes/100 WBC (Bld) 25.6 % 24.0 - 44.0 % [facility] MCH (RBC) [Entitic mass] 27.2 pg 26.0 - 34.[address] [facility] MCHC 31.6 % 31.0 - 37.0 % [facility] MCV (RBC) [Entitic vol] 86.3 fL 80.0 - 100.[address] [facility] Monocytes/100 WBC (Bld) 7.20 % High 3.00 - 6.00 % [facility] Neutrophils (Bld) [#/Vol] 7.4 10*3/uL [facility] Neutrophils/100 WBC (Bld) 65.3 % 35.0 - 66.0 % [facility] Nucleated RBC/100 WBC (Bld) [Ratio] 0.0 % -1.0 - 0.0 % [facility] Platelet mean volume (Bld) [Entitic vol] 9.[address] [facility] Comment on above: MPV is platelet range and age dependent Platelets (Bld) [#/Vol] 329 10*3/uL [facility] RBC (Bld) [#/Vol] 4.37 10*6/uL Low [facility] WBC (Bld) [#/Vol] 11.4 10*3/uL High [facility] Comprehensive metabolic pane josué 07-07-2023 Albumin [Mass/Vol] 4.1 g/dL 3.5 - 5.0 g/dL [facility] ALP [Catalytic activity/Vol] 117 U/L 40 - 129 U/L [facility] ALT [Catalytic activity/Vol] 50 U/L High 0 - 46 U/L [facility] AST [Catalytic activity/Vol] 39 U/L High 0 - 37 U/L [facility] Bilirubin [Mass/Vol] mg/dL mg/dL [facility] Calcium [Mass/Vol] 9.2 mg/dL 7.6 - 11. 0 mg/dL [facility] Chloride [Moles/Vol] 105 mmol/L 96 - 108 mmol/L [facility] CO2 [Moles/Vol] 23.9 mmol/L 22.0 - 29.0 mmol/L [facility] Creatinine [Mass/Vol] 0.81 mg/dL 0.70 - 1.20 mg/dL [facility] Glucose [Mass/Vol] 98 mg/dL 70 - 99 mg/dL [facility] Comment on above: Criteria for Diagnos is of Diabetes: Fasting Specimen (no caloric intake for at least 8 hours): <100 mg/dL Normal 100-125 mg/dL Increased risk for Diabetes >125 mg/dL Diagnostic for Diabetes Random Glucose (any time of day without regard to last meal): > or = 200 mg/dL plus Classic Symptoms of Diabetes Interpretation and review of laboratory results Abnormal [facility] Potassium [Moles/Vol] 4.0 mmol/L 3.3 - 5.1 mmol/L [facility] Protein [Mass/Vol] 7.2 g/dL 5.9 - 8.4 g/dL [facility] Sodium [Moles/Vol] 141 mmol/L 133 - 145 mmol/L [facility] Urea nitrogen [Mass/Vol] 15 mg/dL 4 - 19 mg/dL [facility] Release to patient->Automatic [facility] Progress Noteon 07-07-2023 Appliance Technician Authentication Interface Message Text Gal is a [...] thickening is (more content not included)... Normal [facility] Valproic Acidon 07-07-2023 Valproic Acid 74 ug/mL Normal 50-100 [facility] Comment on above: Order Comment: Relea se to patient->Automatic 02558&Blood Performed By: #### V AMBER #### [place] [address] Valproic Acid 74 ug/mL 50 - 100 ug/mL [facility] Release to patient->Automatic [facility] Progress Noteon 01-06-2023 Appliance Technician Authentication Interface Message Text Gal is a [...] dominant lesio (more content not included)... Normal [facility] CBC panel Auto (Bld)on 10-23 Erythrocyte distribution width (RBC) [Ratio] 14.8 % Normal 11.5-15.0 [facility] Comment on above: Order Comment: Jonny robledo Type: BLOOD SPECIMEN Ordering Facility: [facility] Address: [address] [place] [address] Performed By: #### 5 8410-2 #### [facility] CLIA [id number] [address] [place] [address] [place] Hematocrit (Bld) [Volume fraction] 35.0 % Low 39.0-51.0 [facility] Comment on above: Order Comment: Jonny robledo Type: BLOOD SPECIMEN Ordering Facility: [facility] Address: [address] [place] [address] Performed By: #### 5 8410-2 #### [facility] CLIA [id number] [address] [place] [address] [place] Hemoglobin (Bld) [Mass/Vol] 11.4 g/dL Low 13.0-17.0 [facility] Comment on above: Order Comment: Speci men Type: BLOOD SPECIMEN Ordering Facility: [facility] Address: [address] [place] [address] Performed By: #### 5 8410-2 #### [facility] CLIA [id number] [address] [place] [address] [place] MCH (RBC) [Entitic mass] 27.6 pg Normal 26.0-34.0 [facility] Comment on above: Order Comment: Speci men Type: BLOOD SPECIMEN Ordering Facility: [facility] Address: [place] [address] Performed By: #### 5 8410-2 #### [facility] CLIA [id number] [address] [place] [address] [place] MCHC (RBC) [Mass/Vol] 32.6 g/dL Normal 30.5-36.0 [facility] Comment on above: Order Comment: Speci men Type: BLOOD SPECIMEN Ordering Facility: [facility] Address: [address] [place] [address] Performed By: #### 5 8410-2 #### [facility] CLIA [id number] [address] [place] [address] [place] MCV (RBC) [Entitic vol] 84.7 fL Normal 80.0-100.0 [facility] Comment on above: Order Comment: Speci men Type: BLOOD SPECIMEN Ordering Facility: [facility] Address: [address] [place] [address] Performed By: #### 5 8410-2 #### [facility] CLIA [id number] [address] [place] [address] [place] Nucleated RBC (Bld) [#/Vol] 10*3/uL Normal <0.01 [facility] Comment on above: Order Comment: Speci men Type: BLOOD SPECIMEN Ordering Facility: [facility] Address: [address] [place] [address] Performed By: #### 5 8410-2 #### [facility] CLIA [id number] [address] [place] [address] [place] Platelet mean volume (Bld) [Entitic vol] 9.4 fL Normal 9.0-12.7 [facility] Comment on above: Order Comment: Speci men Type: BLOOD SPECIMEN Ordering Facility: [facility] Address: [address] [place] [address] Performed By: #### 5 8410-2 #### [facility] CLIA [id number] [address] [place] [address] [place] Platelets (Bld) [#/Vol] 300 10*3/uL Normal 150-400 [facility] Comment on above: Order Comment: Speci men Type: BLOOD SPECIMEN Ordering Facility: [facility] Address: [address] [place] [address] Performed By: #### 5 8410-2 #### [facility] CLIA [id number] [address] [place] [address] [place] RBC (Bld) [#/Vol] 4.13 10*6/uL Low 4.20-6.00 [facility] Comment on above: Order Comment: Speci men Type: BLOOD SPECIMEN Ordering Facility: [facility] Address: [address] [place] [address] Performed By: #### 5 8410-2 #### [facility] CLIA [id number] [address] [place] [address] [place] WBC (Bld) [#/Vol] 9.71 10*3/uL Normal 3.70-11.00 [facility] Comment on above: Order Comment: Speci men Type: BLOOD SPECIMEN [facility] Address: [address] [facility] [address] Performed By: #### 5 8410-2 #### [facility] CLIA [id number] [address] [place] [address] [place] Prot Ur-mCncon 10-23-2022 Protein (U) [Mass/Vol] 173 mg/dL High 0-20 [facility] Comment on above: Order Comment: Speci men Type: URINE SPECIMEN Ordering Facility: [facility] Address: [address] [place] [address] Performed By: #### 2 888-6 #### [facility] CLIA [id number] [address] [place] [address] [place] Renal function 2000 panelon 10-23-2022 Albumin [Mass/Vol] 3.7 g/dL Low 3.9-4.9 [facility] Comment on above: Order Comment: Speci men Type: BLOOD SPECIMEN Ordering Facility: [facility] Address: [address] [place] [address] Performed By: #### 2 4362-6 #### [facility] CLIA [id number] [address] [place] [address] [place] Anion gap [Moles/Vol] 10 mmol/L Normal 9-18 [facility] Comment on above: Order Comment: Speci men Type: BLOOD SPECIMEN Ordering Facility: [facility] Address: [address] [place] [address] Performed By: #### 2 4362-6 #### [facility] CLIA [id number] [address] [place] [address] [place] Calcium [Mass/Vol] 8.9 mg/dL Normal 8.5-10.2 [facility] Comment on above: Order Comment: Speci men Type: BLOOD SPECIMEN Ordering Facility: [facility] Address: [address] [place] [address] Performed By: #### 2 4362-6 #### [facility] CLIA [id number] [address] [place] [address] [place] Chloride [Moles/Vol] 105 mmol/L Normal 97-105 [facility] Comment on above: Order Comment: Speci men Type: BLOOD SPECIMEN Ordering Facility: [facility] Address: [address] [place] [address] Performed By: #### 2 4362-6 #### [facility] [id number] [address] [place] [address] [place] CO2 [Moles/Vol] 25 mmol/L Normal 22-30 [facility] Comment on above: Order Comment: Speci men Type: BLOOD SPECIMEN Ordering Facility: [facility] Address: [address] [place] [address] Performed By: #### 2 4362-6 #### [facility] [id number] [address] [place] [address] [place] Creatinine [Mass/Vol] 0.72 mg/dL Low 0.73-1.22 [facility] Comment on above: Order Comment: Speci men Type: BLOOD SPECIMEN Ordering Facility: [facility] Address: [address] [place] [address] Performed By: #### 2 4362-6 #### [facility] [id number] [address] [place] [address] [place] ESTIMATED GLOMERULAR FILTRATION RATE 127 mL/min/1.73m??? Normal >=60 [facility] Comment on above: Order Comment: Speci men Type: BLOOD SPECIMEN Ordering Facility: [facility] Address: [address] [place] [address] Result Comment: Ruth mated Glomerular Filtration Rate [...] GFR. Performed By: #### 2 4362-6 #### [facility] CLIA [id number] [address] [place] [address] [place] Glucose [Mass/Vol] 139 mg/dL High 74-99 [facility] Comment on above: Order Comment: Jonny robledo Type: BLOOD SPECIMEN Ordering Facility: [facility] Address: [address] [place] [address] Result Comment: The [place] Diabetes Association (ADA) provides guidance for cutoff [...] Standards of Medical Care in Diabetes 2016, [place] Diabetes Association. Diabetes Care. 2016.39(Suppl 1). Performed By: #### 2 4362-6 #### [facility] [id number] [address] [place] [address] [place] Phosphate [Mass/Vol] 2.4 mg/dL Low 2.7-4.8 [facility] Comment on above: Order Comment: Rafaeli men Type: BLOOD SPECIMEN Ordering Facility: [facility] Address: [address] [place] [address] Performed By: #### 2 4362-6 #### [facility] [id number] [address] [place] [address] [place] Potassium [Moles/Vol] 3.8 mmol/L Normal 3.7-5.1 [facility] Comment on above: Order Comment: Jonny robledo Type: BLOOD SPECIMEN Ordering Facility: [facility] Address: [address] [place] [address] Performed By: #### 2 4362-6 #### [facility] CLIA [id number] [address] [place] [address] [place] Sodium [Moles/Vol] 140 mmol/L Normal 136-144 [facility] Comment on above: Order Comment: Speci men Type: BLOOD SPECIMEN Ordering Facility: [facility] Address: [address] [place] [address] Performed By: #### 2 4362-6 #### [facility] CLIA [id number] [address] [place] [address] [place] Urea nitrogen [Mass/Vol] 16 mg/dL Normal 9-24 [facility] Comment on above: Order Comment: Speci men Type: BLOOD SPECIMEN Ordering Facility: [facility] Address: [address] [place] [address] Performed By: #### 2 4362-6 #### [facility] [id number] [address] [place] [address] [place] ANES POSTPROC EVALon 022 ANES POSTPROC EVAL HNO ID: [id number] Author: Lauren Bravo MD Service: ? Author Type: Anesthesiologist Type: Anesthesia Postprocedure Evaluation Filed: 08/27/2022 1:57 PM Note Text: POST ANESTHESIA EVALUATION NOTE : 1995 Procedure Summary Date: 08/27/22 Room / Location: [place] OR [facility] PROC / [place] OR Anesthesia Start: [...] August 27, 2022 TIME: 1:57 PM CSN: [id number] [facility] ANES PRE-OPon 08-27-2022 ANES PRE-OP HNO ID: [id number] Author: Lauren Bravo MD Service: ? Author [...] and consent discussed: yes. Patient / Responsible Libertarian agrees to proceed: yes Patient / Surrogate [...] August 27, 2022 TIME: 11:52 AM CSN: [id number] Normal [facility] MRI ABDOMEN WO/W IVCONon MRI ABDOMEN WO/W IVCON * * *Final Report* * * DATE OF EXAM: Aug 27 2022 1:54PM [facility] 0689 - MRI ABDOMEN WO/W IVCON [...] the liver parenchyma and associated mild hepatomegaly. Crown Blocker: SIMONE Transcribe Date/Time: Aug 28 2022 2:06P Dictated by : JERALD SMART MD This examination was interpreted and the report reviewed and electronically signed by: JERALD SMART MD on Aug 28 2022 2:18PM EST [id number] N Normal [facility] ic MRI BRAIN WO/W IVCONon 08-27 MRI BRAIN WO/W IVCON * * *Final Report* * * DATE OF EXAM: Aug 27 2022 1:52PM [facility] 0295 - MRI BRAIN WO/W IVCON [...] would be helpful to evaluate for stability. Crown Blocker: PSCB Transcribe Date/Time: Aug 28 2022 10:38A Dictated by : STEPHON CORMIER MD This examination was interpreted and the report reviewed and electronically signed by: STEPHON CORMIER MD on Aug 28 2022 11:54AM EST [id number] N Normal [facility] Clin ic Complete Blood Counton 01-07 Differential Complete Manual [facility] Erythrocyte distribution width (RBC) [Ratio] 14.2 % 0 - 14.4 % [facility] Hematocrit (Bld) [Volume fraction] 37.0 % Low 41 - 50 % [facility] Hemoglobin (Bld) [Mass/Vol] 11.7 g/dL Low 13.5 - 16.5 g/dl [facility] Immature granulocytes/100 WBC (Bld) 0.7 % [facility] Comment on above: Immature Granulocyte Percent includes promyelocytes, myelocytes, and metamyelocytes. IG% > 1.0 indicates a left shift is present. With automated differentials, bands are included in the neutrophil count and not in the Immature Granulocyte Percent. MCH (RBC) [Entitic mass] 27.5 pg 26 - [address] [facility] MCHC 31.6 % 31 - 37 % [facility] MCV (RBC) [Entitic vol] 86.9 fL 80 - [address] [facility] Nucleated RBC/100 WBC (Bld) [Ratio] 0 % -1 - 0 % [facility] Platelet mean volume (Bld) [Entitic vol] 9.[address] [facility] Comment on above: MPV is platelet range and age dependent Platelets (Bld) [#/Vol] 382 10*3/uL [facility] RBC (Bld) [#/Vol] 4.26 10*6/uL Low [facility] WBC (Bld) [#/Vol] 11.1 10*3/uL High [facility] Comprehensive metabolic pane josué 01-07-2022 Albumin [Mass/Vol] 4.1 g/dL 3.5 - 5 g/dL [facility] ALP [Catalytic activity/Vol] 139 U/L High 40 - 129 U/L [facility] ALT [Catalytic activity/Vol] 26 U/L 0 - 46 U/L [facility] AST [Catalytic activity/Vol] 26 U/L 0 - 37 U/L [facility] Bilirubin [Mass/Vol] 0.3 mg/dL [facility] Calcium [Mass/Vol] 9.3 mg/dL 7.6 - 11 mg/dL [facility] Chloride [Moles/Vol] 102 mmol/L 96 - 108 mmol/L [facility] CO2 [Moles/Vol] 22.4 mmol/L 22 - 29 mmol/L [facility] Creatinine [Mass/Vol] 0.87 mg/dL 0.7 - 1.2 mg/dL [facility] Glucose [Mass/Vol] 99 mg/dL 70 - 99 mg/dL [facility] Comment on above: Criteria for Diagnos is of Diabetes: Fasting Specimen (no caloric intake for at least 8 hours): <100 mg/dL Normal 100-125 mg/dL Increased risk for Diabetes >125 mg/dL Diagnostic for Diabetes Random Glucose (any time of day without regard to last meal): > or = 200 mg/dL plus Classic Symptoms of Diabetes Potassium [Moles/Vol] 4.4 mmol/L 3.3 - 5.1 mmol/L [facility] Protein [Mass/Vol] 7.3 g/dL 5.9 - 8.4 g/dL [facility] Sodium [Moles/Vol] 138 mmol/L 133 - 145 mmol/L [facility] Urea nitrogen [Mass/Vol] 18 mg/dL 4 - 19 mg/dL [facility] Lipid panelon 01-07-2022 Cholesterol [Mass/Vol] 213 mg/dL High 0 - 199 mg/dL [facility] Comment on above: Acceptable (mg/dL): <200 Borderline-High (mg/dL): 200-239 High (mg/dL): > or = 240 Recommendations of the NCEP Adult Treatment Panel for the risk cut-off thresholds for the [place] Population. Cholesterol in HDL [Mass/Vol] 38 mg/dL [facility] Comment on above: Low (mg/dL): <40 Borderline-Low (mg/dL): 40 60 Acceptable (mg/dL): >60 Cholesterol in LDL [Mass/Vol] 128 mg/dL 0 - 129 mg/dL [facility] Non-HDL Cholesterol 176 mg/dL High 0 - 129 mg/dL [facility] Triglyceride [Mass/Vol] 239 mg/dL High 0 - 149 mg/dL [facility] Comment on above: A repeating fasting triglyceride should be measured in 2-4 weeks if a non-fasting level is >200 mg/dL. Manual Differentialon 2021 % Metamyelocytes 0 % 0 - 0 % [facility] % Monocytes 6 % 3 - 6 % [facility] % Myelocytes 0 % 0 - 0 % [facility] % Promyelocytes 0 % 0 - 0 % [facility] Absolute Neutrophil No. 6.[address] [facility] Band Neutrophil 0 % Low 5 - 11 % [facility] Cell Morphology Normal [facility] Lymphocytes 38 % 24 - 44 % [facility] Segmented Neutrophils 56 % 35 - 66 % [facility] No Panel Informationon 01-07 Interpretation and review of laboratory results Abnormal [facility] Release to patient->[facility] Interpretation and review of laboratory results Abnormal [facility] Release to patient->[facility] Valproic Acidon 01-07-2022 Valproic Acid 71 ug/mL 50 - 100 ug/mL [facility] Vital Signs Date Time Vital Sign Value Performing Clinician Faci lity 06-09-2024 09:04-0400 Body height 175.3 cm Haritha ARANA TERMINOLOGIST Work Phone: [facility] 06-09-2024 09:04-0400 Body mass index (BMI) [Ratio] 33.6 kg/m2 Haritha SANTOS Work Phone: [facility] 06-09-2024 09:04-0400 Body temperature 97.2 [degF] Haritha Gregg PLUMBING ASSEMBLER INSTALLER-C TERMINOLOGIST Work Phone: [facility] 06-09-2024 09:04-0400 Body weight 103.19 kg Haritha Garyiv PLUMBING ASSEMBLER INSTALLER-C TERMINOLOGIST Work Phone: [facility] [employer] 06-09-2024 09:04-0400 Diastolic blood pressure 67 mm[Hg] Haritha Garymera PLUMBING ASSEMBLER INSTALLER-GEARMAN Work Phone: [facility] [employer] [facility] 06-09-2024 09:04-0400 Heart rate 66 /min Haritha Garyiv PLUMBING ASSEMBLER INSTALLER-C TERMINOLOGIST Work Phone: [facility] [employer] [facility] 06-09-2024 09:04-0400 Respiratory rate 16 /min Haritha Abdirahmaniv PLUMBING ASSEMBLER INSTALLER-C TERMINOLOGIST Work Phone: [facility] [employer] [facility] 06-09-2024 09:04-0400 SaO2% (BldA) [Mass fraction] 100 % Haritha Abdirahmaniv PLUMBING ASSEMBLER INSTALLER-GEARMAN Work Phone: [facility] [employer] [facility] 06-09-2024 09:04-0400 Systolic blood pressure 130 mm[Hg] Haritha Garymera AP RN-GEARMAN Work Phone: [facility] [employer] [facility] Encounters Encounter Date Encounter Type Care Provider Facility Start: 06-09-2024 End: 06-09-2024 Office consultation new/estab patient 40 min Haritha Garymera PLUMBING ASSEMBLER INSTALLER-GEARMAN Work Phone: [facility] [employer] Pre-Admission Testing Comment on above: Pre-op testing (Prim ruth Dx); Primary hypertension; Body mass index (BMI) 33.0-33.9, adult Start: 06-09-2024 End: 06-09-2024 Patient encounter status Haritha Garymera PLUMBING ASSEMBLER INSTALLER-GEARMAN Work Phone: [facility] [employer] Work Phone: Start: 06-09-2024 End: 06-09-2024 ambulatory DARREL GOMEZLAND Facility:[facility] Start: 06-09-2024 Encounter for other preprocedural examination HARITHA MARYSOL [facility] [employer] [facility] Start: 05-16-2024 End: 05-16-2024 Admission to same day surgery center Hussein Chua DDS Work Phone: [facility] Start: 04-28-2024 ambulatory DARREL BLACKMON Facilit y:[facility] Start: 04-28-2024 End: 04-28-2024 Patient encounter procedure Darrel Blackmon DDS Work Phone: 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, not intractable Start: 01-06-2023 End: 01-06-2023 ambulatory [facility] Start: 10-23-2022 End: 10-24-2022 ambulatory GLADYS BUSH Facility:[facility] Start: 08-27-2022 End: 08-27-2022 ambulatory ESHA DIETZ Facility:[facility] Start: 08-27-2022 End: 08-27-2022 Subsequent hospital visit by physician Mri [facility] (I-Stat/Lg Bore/3t) RADIO MRI [facility] 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 Procedures Date Procedure Procedure Detail Performing Clinician Start: 06-09-2024 Blood count complete automated Haritha Gregg PLUMBING ASSEMBLER INSTALLER-GEARMAN Work Phone: Start: 07-07-2023 COMPLETE BLOOD COUNT [...] 06-09-2025 Creatinine measurement Basic Metabol ic Panel [facility] Start: 07-07-2024 Antipsychotic Glucose/HbA1c Annual Antipsychotic Glucose/HbA1c Annual [facility] Start: 07-07-2024 Creatinine measurement Basic Metabol ic Panel [facility] Start: 06-29-2024 End: 06-29-2024 Patient encounter procedure 06/29/2024 11:40 AM EDT Procedure Visit [facility] [address] [place] [address] Shirin Hernandez, [place] [address] [place] [address] [facility] Start: 06-09-2024 End: 06-09-2024 Patient encounter procedure 06/09/2024 9:00 AM EDT Office Visit [facility] Pre-Admission Testing [address] [place] [address] [facility] Pre-Admission Testing Start: 05-30-2024 Influenza vaccination Influenza Vacc ine (#1) [facility] Start: 04-30-2024 Influenza vaccination Influenza Vacc ine (#1) [facility] Start: 04-30-2023 FLU (#1) FLU (#1) [facility] Start: 01-07-2023 Antipsychotic Glucose/HbA1c Annual Antipsychotic Glucose/HbA1c Annual [facility] Start: 01-07-2023 Antipsychotic Lipid Panel Annual Antipsychotic Lipid Panel Annual [facility] Start: 08-30-2022 DEPRESSION ASSESSMENT DEPRESSION ASS ESSMENT [facility] Start: 04-30-2022 FLU (Season Ended) FLU (Season Ended ) [facility] Start: 04-30-2022 Influenza vaccination INFLUENZA (#1) [facility] Start: 2020 HPV Vaccine (optiona l start 27-45 years) HPV Vaccine (optional start 27-45 years) [facility] Start: 10-06-2019 AIMS 6 Month Check AIMS 6 Month Chec k [facility] Start: 2012 Hepatitis A (HAV) Vaccine (optional start 19+ years) Hepatitis A (HAV) Vaccine (optional start 19+ years) [facility] Start: 2012 Hepatitis B vaccination Hepati tis B (HBV) Vaccine (1 of 3 - 19+ 3-dose series) [facility] Start: 2012 Shingles (RZV) Vacci ne (1 of 2) Shingles (RZV) Vaccine (1 of 2) [facility] Start: 2012 SHINGRIX VACCINE (1 of 2) SHINGRIX VACCINE (1 of 2) [facility] Start: 2012 Urine microalbumin profile DTAP,TDAP,TD (1 - Tdap) [facility] Start: 2011 HEPATITIS C SCREENING HEPATITIS C SC REENING [facility] Start: 2011 Hepatitis C screening Hepatitis C An tibody [facility] Start: 2011 HIV SCREENING HIV SCREENING [facility] Start: 2011 Tdap Booster Tdap Booster [facility] Start: 2009 MenB (1 of 2 - MenB 2-Dose Series Bexsero) MenB (1 of 2 - MenB 2-Dose Series Bexsero) [facility] Start: 2009 MenB (1 of 2 - MenB 2-Dose Series) MenB (1 of 2 - MenB 2-Dose Series) [facility] Start: 2008 HIV screening HIV Test [facility] Start: 2005 COVID-19 (1) COVID-19 (1) [facility] Start: 2000 Tetanus Diphtheria a nd Pertussis Vaccines (1 - Tdap) Tetanus Diphtheria and Pertussis Vaccines (1 - Tdap) [facility] Start: 1999 PNEUMOCOCCAL (1 - PCV) PNEUMOCOCCAL (1 - PCV) [facility] Start: 1999 Pneumococcal vaccination Pneumococcal Vaccine(s) (1 of 2 - PCV) [facility] Start: 1998 COVID-19 Vaccine (#1) COVID-19 Vacci ne (#1) [facility] Start: 1994 MMR (1 of 1 - Standa rd series) MMR (1 of 1 - Standard series) [facility] Start: 1994 Varicella (1 of 2 - 2-dose childhood series) Varicella (1 of 2 - 2-dose childhood series) [facility] Start: 04-01-1994 COVID-19 (#1) COVID-19 (#1) 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 Payers Date Payer Category Payer Medicaid [id number] 2014 Medicaid [id number] 1993 Unknown [id number] [id number]. [id number] 1993 Unknown [id number] 2.16. [id number] 1993 Unknown [id number] 2.16. [id number] 1993 Unknown [id number] 2.16. [id number] 1993 Unknown [id number] 2.16. [id number] Social History Date Type Detail Facility Start: 09-06-2019 End: 01-07-2022 Tobacco smoking status NHIS Never smoked tobacco [facility] Start: 01-07-2022 End: 06-09-2024 Cigarette pack-years [facility] Start: 09-06-2019 End: 01-07-2022 Tobacco use and exposure Smokeless tobacco non-user [facility] Start: 01-07-2022 End: 07-07-2023 Alcohol intake Not Asked [facility] Start: 01-07-2022 Tobacco Comment NO SMOKERS IN THE HO [facility] Start: 1995 Sex Assigned At Not on file A [facility] Start: 12-28-2021 End: 01-07-2022 Exposure to SARS-CoV-2 (event) Not sure [facility] Tobacco smoking stat us NDIS Tobacco smoking consumption unknown [facility] Start: 07-07-2023 End: 06-09-2024 Tobacco use panel [facility] Start: 06-09-2024 Alcoholic beverage intake Ex-drinker (finding) [facility] Goals Date Patient Goal Desired Activity /State Personal health goal Clinical Notes 08-26-2022 to 06-09-2024 Haritha Gregg APRN-GEARMAN - 06/09/2024 9:15 AM EDTMHaritha rosales PLUMBING ASSEMBLER INSTALLER-GEARMAN - 06/09/2024 9:15 AM EDTPatient Darrel Ribeiro, DDS - 04/28/2024 11:02 AM EDT Note Date & Type Note Facility 06-09-2024 History of Present illness Narrative Images from the original note were not included. Pre-Admission Testing Consultation [place], [id number] 28 year old Male 06/09/2024 Consult placed [...] Script sent. MRI abdomen and kidneys At [facility] with sedation 1 yr 5 Continue Nephrology follow up. With adult kidney doctor at [facility] 6. Agree with mTOR inhibitors, which would [...] 12:00 PM 06/09/2024 documented in this encounter [facility] 06-09-2024 History of Present illness Narrative Images from the original note were not included. Pre-Admission Testing Consultation [place], [id number] 28 year old Male 06/12/2024 Consult placed to [facility] by Dr. Hernandez due to significant PMH [...] TOOTH #1,16,17,30,31,32; Surgeon: Dennis Salmon DDS; Location: [facility]; Service: Oral Past Medical History and Review [...] Script sent. MRI abdomen and kidneys At [facility] with sedation 1 yr 5 Continue Nephrology follow up. With adult kidney doctor at [facility] 6. Agree with mTOR inhibitors, which would [...] 3:04 PM 06/12/2024 documented in this encounter [facility] 06-09-2024 Note Pre-Admission Testin g Consultation [place], [id number] 28 year old Male 06/12/2024 Consult placed [...] 06/09/2024 9: (more content not included)... [facility] 06-09-2024 Instructions Marysol Haritha, PLUMBING ASSEMBLER INSTALLER-GEARMAN - 06/09/2024 9:01 AM EDT On the [...] for pain. Please hold all Vitamin E, [place] 3, fish oil and herbal supplements for [...] otherwise contacted. ? Expect a call from [facility] [employer] [facility] one business day prior to surgery for [...] your Preparing for Your Surgery/Procedure booklet or [email or web address] if you have questions. Contact the Pre-Admission Testing department at [phone] or your surgeon's office with any questions [...] stay with you after surgery. Please call [facility] if you need transportation assistance or have concerns about going home [phone]. ? SLEEP APNEA PATIENTS: Bring your sleep apnea machine and mask. ? PLEASE BE ON TIME. A late arrival may result in the cancellation/ delay of your surgery. [facility]; it is our pleasure to care for you documented in this encounter [facility] 04-28-2024 History of Present illness Narrative ----- Sunday, April 28, 2024 at 11:17:47 AM ----- ----- Provider: [id number] Blackmon DDS -- Clinic: [place] [address] ----- OR EVALUATION Patient presents for evaluation [...] in-office IV sedation documented in this encounter [facility] 08-27-2022 Note HNO ID: [id number] Author: Liana Biswas APRN.EXPANSION JOINT FINISHER Service: Nursing Author Type: Nurse Plant Taxonomist Type: Anesthesia Procedure Notes Filed: 08/27/2022 11:44 [...] Number of attempts at approach: 1 SIGNATURE: Linaa Biswas APRN.EXPANSION JOINT FINISHER PATIENT NAME: Gal Madison DATE: August 27, 2022 TIME: 11:44 AM CSN: [id number] [facility] 08-27-2022 Note HNO ID: [id number] Author: RT Adrian(R) Service: Radiology Author Type: [...] PERIPHERAL IV DATA: Inpatient - refer to [facility] documentation RADIOLOGY DEPARTMENT: MR; Exam(s) Completed: Body: Renal Head: Routine Brain SIGNATURE: Elvia SierraRT diane(R) PATIENT NAME: Gal Madison DATE: August 27, 2022 TIME: 12:35 PM [facility] 08-27-2022 Note HNO ID: [id number] Author: АНДРЕЙ Oakes) Service: Radiology Author Type: Technologist Type: Progress Notes Filed: 08/28/2022 6:33 AM Note Text: Patient's mother refused anesthesia as ordered for MRI scans. Best images possible d/t patient motion/condition. [facility] 08-27-2022 History of Present illness [...] PERIPHERAL IV DATA: Inpatient - refer to [facility] documentation RADIOLOGY DEPARTMENT: MR; Exam(s) Completed: Body: Renal Head: Routine Brain SIGNATURE: Elvia RT Janet(R) PATIENT NAME: Gal Madison DATE: August 27, 2022 TIME: 12:35 PM Patient's mother refused anesthesia as ordered for MRI scans. Best images possible d/t patient motion/condition. documented in this encounter [facility] 08-26-2022 Note HNO ID: [id number] Author: Jem Hines RN Service: Nursing Author Type: Registered Nurse Type: Nursing Progress Note Filed: 08/26/2022 11:17 AM Note Text: Mother bringing list of meds to presurg tomorrow. Didn't have time to go over them at present. [facility] Evaluation note Diagnosis Tuberous sclerosis 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 Diagnosis Neurocognitive disorder- Primary Unspecified persistent mental disorders due to conditions classified elsewhere Aggression Explosive personality [facility] Caries- Primary Unspecified dental caries [facility] Pre-op testing- Primary Preoperative examination, unspecified Primary hypertension Unspecified essential hypertension Body mass index (BMI) 33.0-33.9, adult documented in this encounter [facility] Summary Purpose Family History No Family History Records FoundNo Family History Records FoundNo Family History Records FoundNo Family History Records Found Advance Directives No Advanced Directives Records FoundNo Advanced Directives Records FoundNo Advanced Directives Records FoundNo Advanced Directives Records Found Reason for Referral Specialty Diagnoses / Procedures Referred By Contac t Referred To Contact Anesthesiology Diagnoses Neurocognitive disorder Aggression Darrel Blackmon, DDS [address] [place] [address] [facility] [address] [phone] Referral ID Status Reason Start Date Expiration Date V isits Requested Visits Authorized [id number] Authorized 04/28/2024 04/28/2025 1 1 Scheduling Instructions Your surgical team will reach out to you to schedule a pre-admission testing appointment. Question Answer Reason for consult? Recommended PAT Risk Score Comments Patient requires IV sedation or general anesthesia for comprehensive dental treatment. Specialty Diagnoses / Procedures Referred By Contac t Referred To Contact Anesthesiology Diagnoses Caries Yazan Pedraza, DDS [address] [phone] [facility] [address] [phone] Referral ID Status Reason Start Date Expiration Date V isits Requested Visits Authorized [id number] Authorized 05/16/2024 05/16/2025 1 1 Additional Source Comments Care Teams (unrecognized sec tion and content) Computer Publisher Relationship Specialty Start Date End Date Irma Pittman MD [address] [place], [place] [phone] PCP - General 04/21/19 Clifton Wayne MD [address] [facility] [address] [place], [place] [phone] Attending Physician Neurology 10/03/13 Computer Publisher Relationship Specialty Start Date End Date Ravinder Langford PCP - General 06/23/02 Computer Publisher Relationship Specialty Start Date End Date Irma Pittman MD [address] [place], [place] [phone] PCP - General 04/21/19 Clifton Wayne MD [address] [facility] [address] [place], [place] [phone] Attending Provider Neurology 10/03/13 (unrecognized sect ion and content) No Status Records FoundNo Status Records FoundNo Status Records FoundNo Status Records Found INFORMATION SOURCE (unrecogn ized section and content) DATE CREATED AUTHOR 08/29/2022 [facility] DATE CREATED AUTHOR AUTHOR'S ORGANIZ ATION 10/24/2022 [facility] DATE CREATED AUTHOR AUTHOR'S ORGANIZ ATION 07/14/[address] [facility] DATE CREATED AUTHOR AUTHOR'S ORGANIZ ATION 06/14/2024 [facility] Source Comments (unrecognize d section and content) In the event this informatio n is protected by the Federal Confidentiality of Alcohol and Drug Abuse Patient Records regulations: The Federal rules restrict any use of the information to criminally investigate or prosecute any alcohol or drug abuse patient.[facility] Reason for Visit (unrecogniz ed section and content) Specialty Diagnoses / Procedures Referred By Jason valle Referred To Contact Anesthesiology Diagnoses Neurocognitive disorder Aggression Darrel Blackmon, DDS [address] [place] [address] [facility] [address] [place] [address] Referral ID Status Reason Start Date Expiration Date Visits Re quested Visits Authorized [id number] Closed 04/28/2024 04/28/2025 1 1 FOR RECORDS [...] BE BASED ON THE PRIMARY CLINICAL RECORDS. [facility] [employer] [facility]. provides no warranty or guarantee of the accuracy or completeness of information in this document.
[2024-06-26 13:13] LABS: Protein, Urine (Random) 17.7 mg/dL (<11.9); Protein:Creat Ratio 116 mg/g CRE (0-200)
== END | disposition home or self-care (01) ==
LOC: MTLAB 11:00
PROVIDERS: PCP Family Medicine; Referring Provider Pediatrics Pediatric Nephrology; Visit Provider Pediatrics Pediatric Nephrology
DX: I10 Essential (primary) hypertension (principal)
CPT/HCPCS: 82570; 84156

== ENCOUNTER → 2025-06-21 | Outpatient (CLI) | payer MEDICAID, SELFPAY ==
[2025-06-21 10:04] LABS: Cholesterol 232 mg/dL (<=200); Low Density Lipoprotein Calc. 163 mg/dL; Triglycerides 171 mg/dL; Very Low Density Lipoprotein 34 mg/dL (5-40); cholesterol:hdl ratio screen 6.19
[2025-06-21 10:05] LABS: Anion Gap 11 (5-15); BUN 15 mg/dL (4-19); BUN/Creat Ratio 19.7 RATIO (10-20); Calcium,Total 8.9 mg/dL (7.6-11.0); Carbon Dioxide 23.6 mmol/L (21.0-32.0); Chloride 105 mmol/L (98-108); Glucose 94 mg/dL (70-99); Potassium 4.4 mmol/L (3.3-5.1)
[2025-06-22 07:08] LABS: PROLACTIN 52.2 ng/mL (3.9-22.7)
== END | disposition home or self-care (01) ==
LOC: LAB 08:45
PROVIDERS: Psychiatry & Neurology Psychiatry; PCP Family Medicine; Referring Provider Internal Medicine Nephrology; Visit Provider Internal Medicine Nephrology
DX: I10 Essential (primary) hypertension (principal); Z79.899 Other long term (current) drug therapy
CPT/HCPCS: 36415; 80048; 80061; 83036; 84146